=== PATIENT | female | born 1950 | race Caucasian/White ===

== ENCOUNTER 2020-06-06 08:36 | Outpatient (REF) | payer MEDICARE, SELFPAY ==
[2020-06-06 09:36] LABS: MANUAL DIFF FLAG NO
[2020-06-06 09:37] LABS: Basophils Percent Auto 0.6 % (0-2); Eosinophils Absolute Auto 0.1 X10*3/uL (0.0-0.4); Eosinophils Percent Auto 1.1 % (0-4); Hematocrit 37.2 % (37-47); Hemoglobin 12.7 g/dl (12.0-16.0); Imm Gran Abs Auto 0.02 X10*3/uL (0.00-0.03); Imm Gran Pct Auto 0.4 % (0.0-0.4); Lymphocytes Absolute Auto 2.4 X10*3/uL (1.2-4.9); Lymphocytes Percent Auto 44.4 % (20-40); Mean Corpuscular HGB Conc 34.1 g/dl (31.0-35.0); Mean Corpuscular Volume 96.6 fL (80-98); Mean Platelet Volume 9.6 fL (9.4-12.3); Monocytes Absolute Auto 0.5 X10*3/uL (0.1-1.2); Monocytes Percent Auto 9.9 % (2-11); Neutrophils Absolute Auto 2.4 X10*3/uL (2.0-8.3); Neutrophils Percent Auto 43.6 % (45-73); Platelet Count 187 X10*3/uL (160-400); Red Blood Count 3.85 X10*6/uL (4.20-5.50); Red Cell Distribution Width 11.6 % (11.0-16.0); White Blood Count 5.4 X10*3/uL (4.8-10.8)
[2020-06-06 09:49] LABS: Estimated Average Glucose 105 mg/dL; Hemoglobin A1c % 5.3 %
[2020-06-06 10:23] LABS: Alanine Aminotransferase 27 U/L (0-31); Albumin Level 4.6 g/dL (3.5-5.0); Alkaline Phosphatase 75 U/L (39-117); Anion Gap 14 (12-20); Aspartate Amino Transferase 26 U/L (5-31); Bilirubin Total 0.7 mg/dL (0.0-1.0); Blood Urea Nitrogen 18 mg/dL (9-16); Calcium 9.6 mg/dL (8.4-10.2); Carbon Dioxide 29 mmol/L (22-29); Chloride 97 mmol/L (96-108); Cholesterol 182 mg/dL; Estimated Glomerular Filt Rate > 60; Glucose Fasting 90 mg/dL (60-99); HDL Cholesterol 58 mg/dL; LDL Cholesterol Calculated 101 mg/dl; Potassium 4.4 mmol/l (3.3-5.1); Reflex LDLD? No; Sodium 136 mmol/L (135-145); Total Protein 7.3 g/dL (6.5-8.0); Triglycerides 118 mg/dL
== END 2020-06-06 08:37 | disposition home or self-care (01) ==
LOC: HO.LAB 08:36
PROVIDERS: PCP Internal Medicine; Visit Provider Internal Medicine
DX: Z00.00 Encounter for general adult medical examination without abnormal findings (principal); R73.03 Prediabetes; R79.89 Other specified abnormal findings of blood chemistry; E78.00 Pure hypercholesterolemia, unspecified; I10 Essential (primary) hypertension; E83.119 Hemochromatosis, unspecified
CPT/HCPCS: 36415; 80053; 80061; 83036; 85025

== ENCOUNTER 2020-06-12 09:03 | Outpatient (REF) | payer MEDICARE, SELFPAY ==
[2020-06-12 09:30] LABS: Glucose Urine UA NEG (NEG); Leukocyte Esterase Urine NEG (NEG); Nitrite Urine NEG (NEG); Specific Gravity - Urine 1.015 (1.005-1.025); Urine Blood NEG (NEG); Urine Ketones NEG (NEG); Urine Protein NEG (NEG-TRACE)
[2020-06-12 09:31] LABS: Appearance Urine CLEAR; Color Urine YELLOW
[2020-06-12 10:01] LABS: Creatinine Urine 60.02 mg/dL; Microalbumin Urine < 5.0 mg/L
== END 2020-06-12 09:04 | disposition home or self-care (01) ==
LOC: HO.LNP 09:03
PROVIDERS: Visit Provider Internal Medicine
DX: R73.09 Other abnormal glucose (principal); E83.119 Hemochromatosis, unspecified; I10 Essential (primary) hypertension
CPT/HCPCS: 81003; 82043

== ENCOUNTER 2020-11-07 09:50 | Outpatient (REF) | payer MEDICARE, SELFPAY ==
[2020-11-07 11:01] LABS: Glucose Urine UA NEG (NEG); Leukocyte Esterase Urine NEG (NEG); Nitrite Urine NEG (NEG); Urine Blood NEG (NEG); Urine Ketones NEG (NEG); Urine Protein NEG (NEG-TRACE)
[2020-11-07 11:05] LABS: Appearance Urine CLEAR; Color Urine YELLOW
[2020-11-07 11:16] LABS: RBC Urine 0-2 /HPF (0); Squamous Epithelial Cell Urine 2+ /LPF; WBC Urine 0-2 /HPF (0-4)
== END 2020-11-07 09:51 | disposition home or self-care (01) ==
LOC: HO.LNP 09:50
PROVIDERS: Visit Provider Internal Medicine
DX: N30.90 Cystitis, unspecified without hematuria (principal)
CPT/HCPCS: 81001; 87086

== ENCOUNTER 2020-11-30 15:25 | Outpatient (REF) | payer MEDICARE, SELFPAY ==
[2020-11-30 15:34] LABS: Glucose Urine UA NEG (NEG); Leukocyte Esterase Urine NEG (NEG); Nitrite Urine NEG (NEG); Urine Blood NEG (NEG); Urine Ketones NEG (NEG); Urine Protein NEG (NEG-TRACE)
[2020-11-30 15:35] LABS: Appearance Urine CLEAR; Color Urine STRAW
[2020-11-30 15:45] LABS: Bacteria Urine 1+ /LPF; RBC Urine 0-2 /HPF (0); Squamous Epithelial Cell Urine 2+ /LPF; Urine Talc Crystals 1+ /LPF
== END 2020-11-30 15:26 | disposition home or self-care (01) ==
LOC: HO.LNP 15:25
PROVIDERS: Visit Provider Internal Medicine
DX: R31.9 Hematuria, unspecified (principal)
CPT/HCPCS: 81001

== ENCOUNTER 2020-12-08 10:17 | Outpatient (REF) | payer MEDICARE, SELFPAY ==
[2020-12-08 10:25] LABS: Glucose Urine UA NEG (NEG); Leukocyte Esterase Urine TRACE (NEG); Nitrite Urine POS (NEG); Urine Blood NEG (NEG); Urine Ketones NEG (NEG); Urine Protein NEG (NEG-TRACE)
[2020-12-08 10:42] LABS: Appearance Urine HAZY; Color Urine YELLOW
[2020-12-08 10:43] LABS: Bacteria Urine 4+ /LPF; RBC Urine 0 /HPF (0); Squamous Epithelial Cell Urine 1+ /LPF
[2020-12-08 10:53] LABS: Alanine Aminotransferase 33 U/L (0-31); Albumin Level 4.6 g/dL (3.5-5.0); Alkaline Phosphatase 73 U/L (39-117); Aspartate Amino Transferase 38 U/L (5-31); Bilirubin Direct 0.3 mg/dL (0.0-0.5); Bilirubin Total 0.8 mg/dL (0.0-1.0); Cholesterol 182 mg/dL; HDL Cholesterol 56 mg/dL; LDL Cholesterol Calculated 101 mg/dl; Total Protein 7.4 g/dL (6.5-8.0); Triglycerides 125 mg/dL
[2020-12-08 11:13] LABS: Ferritin 534 ng/mL (10-250)
== END 2020-12-08 10:18 | disposition home or self-care (01) ==
LOC: HO.LNP 10:17
PROVIDERS: Visit Provider Internal Medicine
DX: R79.89 Other specified abnormal findings of blood chemistry (principal); E78.00 Pure hypercholesterolemia, unspecified; E83.119 Hemochromatosis, unspecified; R31.9 Hematuria, unspecified
CPT/HCPCS: 80061; 80076; 81001; 82728

== ENCOUNTER 2021-06-19 10:11 | Outpatient (REF) | payer MEDICARE, SELFPAY ==
[2021-06-19 10:14] LABS: MANUAL DIFF FLAG NO
[2021-06-19 10:32] LABS: Appearance Urine CLEAR; Color Urine STRAW; Glucose Urine UA NEG (NEG); Leukocyte Esterase Urine 1+ (NEG); Nitrite Urine NEG (NEG); Urine Blood NEG (NEG); Urine Ketones 5 MG/DL (NEG); Urine Protein NEG (NEG-TRACE)
[2021-06-19 11:02] LABS: Basophils Percent Auto 0.8 % (0-2); Eosinophils Absolute Auto 0.1 X10*3/uL (0.0-0.4); Eosinophils Percent Auto 1.9 % (0-4); Hematocrit 40.3 % (37.0-47.0); Hemoglobin 13.4 g/dl (12.0-16.0); Imm Gran Abs Auto 0.02 X10*3/uL (0.00-0.03); Imm Gran Pct Auto 0.4 % (0.0-0.4); Lymphocytes Percent Auto 40.6 % (20-40); Mean Corpuscular HGB Conc 33.3 g/dl (31.0-35.0); Mean Corpuscular Hemoglobin 32.9 pg (27.0-33.0); Mean Platelet Volume 9.9 fL (9.4-12.3); Monocytes Absolute Auto 0.5 X10*3/uL (0.1-1.2); Monocytes Percent Auto 9.6 % (2-11); Neutrophils Absolute Auto 2.2 x10*3/uL (2.0-8.3); Neutrophils Percent Auto 46.7 % (45-73); Platelet Count 202 X10*3/uL (160-400); Red Blood Count 4.07 X10*6/uL (4.20-5.50); Red Cell Distribution Width 11.9 % (11.0-16.0); White Blood Count 4.8 X10*3/uL (4.8-10.8)
[2021-06-19 11:32] LABS: Bacteria Urine 2+ /LPF; RBC Urine 0 /HPF (0); Squamous Epithelial Cell Urine TRACE /LPF; WBC Urine 0-2 /HPF (0-4)
[2021-06-19 11:43] LABS: Creatinine Urine 31.55 mg/dL; Microalbum/Creatinine Ratio Ur 28.5 ug/mg cr
[2021-06-19 11:48] LABS: Alanine Aminotransferase 25 U/L (0-31); Albumin Level 4.6 g/dL (3.5-5.0); Alkaline Phosphatase 66 U/L (39-117); Anion Gap 18 (12-20); Aspartate Amino Transferase 29 U/L (5-31); Bilirubin Total 0.6 mg/dL (0.0-1.0); Blood Urea Nitrogen 25 mg/dL (9-16); Calcium 10.4 mg/dL (8.4-10.2); Carbon Dioxide 27 mmol/L (22-29); Chloride 99 mmol/L (96-108); Cholesterol 221 mg/dL; Estimated Glomerular Filt Rate 60; Glucose Fasting 98 mg/dL (60-99); HDL Cholesterol 57 mg/dL; LDL Cholesterol Calculated 132 mg/dl; Potassium 4.8 mmol/L (3.3-5.1); Sodium 139 mmol/L (135-145); Total Protein 7.9 g/dL (6.5-8.0); Triglycerides 160 mg/dL
[2021-06-19 11:55] LABS: Estimated Average Glucose 111 mg/dL; Hemoglobin A1C 152.0948 umol/L; Hemoglobin A1c % 5.5 %
== END 2021-06-19 10:12 | disposition home or self-care (01) ==
LOC: HO.LNP 10:11
PROVIDERS: PCP Internal Medicine; Visit Provider Internal Medicine
DX: Z00.00 Encounter for general adult medical examination without abnormal findings (principal); I10 Essential (primary) hypertension; R73.09 Other abnormal glucose; R79.89 Other specified abnormal findings of blood chemistry; E78.00 Pure hypercholesterolemia, unspecified; E83.119 Hemochromatosis, unspecified
CPT/HCPCS: 80053; 80061; 81001; 82043; 83036; 85025

== ENCOUNTER 2021-06-25 15:26 | Outpatient (REF) | payer MEDICARE, SELFPAY ==
[2021-06-25 15:49] LABS: Calcium 9.7 mg/dL (8.4-10.2); Iron 120 mcg/dL (30-160); Percent Iron Saturation 42 % (15-50); Total Iron Binding Capacity 289 mcg/dL (228-428); Unsaturated Iron Binding 169 ug/dL
[2021-06-25 16:10] LABS: Ferritin 612 ng/mL (10-250)
== END 2021-06-25 15:27 | disposition home or self-care (01) ==
LOC: HO.LNP 15:26
PROVIDERS: Visit Provider Internal Medicine
DX: E83.119 Hemochromatosis, unspecified (principal); E83.52 Hypercalcemia
CPT/HCPCS: 82310; 82728; 83540

== ENCOUNTER 2021-10-04 08:58 | Outpatient (REF) | payer MEDICARE, SELFPAY ==
--- NOTE | ~2021-10-04 | US_ITS ---
EXAMINATION: US ABDOMEN COMPLETE CLINICAL INFORMATION: Abnormal LFTs. COMPARISON: None TECHNIQUE: Real-time imaging of the abdominal viscera. FINDINGS: PANCREAS: Normal. ABDOMINAL AORTA: The proximal, mid, and distal segments are normal in caliber. INFERIOR VENA CAVA: Visualized portions are normal. LIVER: The liver is normal in size. The liver contour is normal. There is increased liver echogenicity. No focal hepatic lesion. There is no intrahepatic biliary duct dilatation seen. GALLBLADDER: Normal. The gallbladder is physiologically distended without evidence of stones, sludge, polyps, wall thickening or pericholecystic fluid. COMMON BILE DUCT: Normal in caliber measuring 0.3 cm in diameter. RIGHT KIDNEY: There is an irregular shaped cyst in the lower pole measuring 3.0 x 1.4 x 2.3 cm. No hydronephrosis or renal calculi. The kidney measures 11.4 cm in maximum dimension. LEFT KIDNEY: There are 3 anechoic cysts in midpole. Simple measures 0.9 x 0.7 x 1.0 cm. Thick-walled midpole cyst measures 1.2 x 1.0 x 0.8 cm. A third simple cyst in midpole measures 1.2 x 1.0 x 1.0 cm. No hydronephrosis or renal calculi. The kidney measures 11.9 cm in maximum dimension. SPLEEN: Normal. The spleen measures 9.8 cm in maximum dimension. FREE FLUID: None. US/US abdomen complete IMPRESSION: There are bilateral renal cysts with a thick-walled renal cyst in midpole left kidney.
[2021-10-04 09:46] LABS: MANUAL DIFF FLAG NO
[2021-10-04 10:52] LABS: Basophils Percent Auto 0.8 % (0-2); Eosinophils Absolute Auto 0.1 X10*3/uL (0.0-0.4); Eosinophils Percent Auto 2.1 % (0-4); Hematocrit 38.1 % (37.0-47.0); Hemoglobin 12.6 g/dl (12.0-16.0); Imm Gran Abs Auto 0.01 X10*3/uL (0.00-0.03); Imm Gran Pct Auto 0.2 % (0.0-0.4); Lymphocytes Absolute Auto 2.3 X10*3/uL (1.2-4.9); Lymphocytes Percent Auto 47.6 % (20-40); Mean Corpuscular HGB Conc 33.1 g/dl (31.0-35.0); Mean Corpuscular Hemoglobin 32.8 pg (27.0-33.0); Mean Corpuscular Volume 99.2 fL (80.0-98.0); Mean Platelet Volume 9.6 fL (9.4-12.3); Monocytes Absolute Auto 0.5 X10*3/uL (0.1-1.2); Monocytes Percent Auto 9.9 % (2-11); Neutrophils Absolute Auto 1.9 x10*3/uL (2.0-8.3); Neutrophils Percent Auto 39.4 % (45-73); Platelet Count 185 X10*3/uL (160-400); Red Blood Count 3.84 X10*6/uL (4.20-5.50); Red Cell Distribution Width 11.8 % (11.0-16.0); White Blood Count 4.8 X10*3/uL (4.8-10.8)
[2021-10-04 11:37] LABS: Alanine Aminotransferase 23 U/L (0-31); Albumin Level 4.7 g/dL (3.5-5.0); Alkaline Phosphatase 72 U/L (39-117); Aspartate Amino Transferase 24 U/L (5-31); Bilirubin Direct 0.3 mg/dL (0.0-0.5); Bilirubin Total 0.8 mg/dL (0.0-1.0); Total Protein 7.8 g/dL (6.5-8.0)
[2021-10-05 04:05] LABS: Hepatitis A Antibody IgG Nonreactive (Nonreactive); ~Hepatitis A Antibody IgG 0.45 S/CO (0.00-0.99)
[2021-10-05 04:29] LABS: HBS Num1 1.08 mIU/mL (0-7.99); Hepatitis B Core Antibody Nonreactive (Nonreactive); Hepatitis B Surface Antigen Negative (Negative); ~HepC Num1 0.11 S/CO (0.00-0.79); ~Hepatitis B Surface Antibody NONREACTIVE (Nonreactive); ~Hepatitis C Antibody Nonreactive (Nonreactive)
[2021-10-06 16:31] LABS: Anti Nuclear Antibody Screen NEGATIVE (NEGATIVE)
[2021-10-09 14:31] LABS: Smooth Muscle Antibody <20 U (<20)
[2021-10-09 15:06] LABS: Mitochondrial Antibodies NEGATIVE (NEGATIVE)
== END 2021-10-04 08:59 | disposition home or self-care (01) ==
LOC: HO.US 08:58
PROVIDERS: PCP Internal Medicine; Visit Provider Internal Medicine Gastroenterology
DX: R94.5 Abnormal results of liver function studies (principal)
CPT/HCPCS: 36415; 76700; 80076; 85025; 86015; 86038; 86039; 86255; 86256; 86704; 86706; 86708; 86803; 87340

== ENCOUNTER 2021-12-13 10:35 | Outpatient (REF) | payer MEDICARE, SELFPAY ==
[2021-12-13 11:43] LABS: Estimated Average Glucose 108 mg/dL; Hemoglobin A1c % 5.4 %
[2021-12-13 11:54] LABS: Alanine Aminotransferase 29 U/L (0-31); Albumin Level 4.4 g/dL (3.5-5.0); Alkaline Phosphatase 67 U/L (39-117); Aspartate Amino Transferase 40 U/L (5-31); Bilirubin Direct 0.3 mg/dL (0.0-0.5); Bilirubin Total 0.8 mg/dL (0.0-1.0); Cholesterol 186 mg/dL; Glucose Fasting 102 mg/dL (60-99); HDL Cholesterol 49 mg/dL; LDL Cholesterol Calculated 111 mg/dl; Total Protein 7.2 g/dL (6.5-8.0); Triglycerides 131 mg/dL
[2021-12-13 13:54] LABS: Reflex LDLD? No
== END 2021-12-13 10:36 | disposition home or self-care (01) ==
LOC: HO.LNP 10:35
PROVIDERS: Visit Provider Internal Medicine
DX: R73.03 Prediabetes (principal); E78.00 Pure hypercholesterolemia, unspecified
CPT/HCPCS: 80061; 80076; 82947; 83036

== ENCOUNTER 2022-06-20 10:52 | Outpatient (REF) | payer MEDICARE, SELFPAY ==
[2022-06-20 11:11] LABS: MANUAL DIFF FLAG NO
[2022-06-20 11:48] LABS: Basophils Percent Auto 0.7 % (0-2); Eosinophils Absolute Auto 0.1 X10*3/uL (0.0-0.4); Eosinophils Percent Auto 1.6 % (0-4); Hematocrit 39.1 % (37.0-47.0); Imm Gran Abs Auto 0.02 X10*3/uL (0.00-0.03); Imm Gran Pct Auto 0.4 % (0.0-0.4); Lymphocytes Absolute Auto 2.4 X10*3/uL (1.2-4.9); Lymphocytes Percent Auto 43.1 % (20-40); Mean Corpuscular HGB Conc 33.2 g/dl (31.0-35.0); Mean Corpuscular Volume 99.2 fL (80.0-98.0); Mean Platelet Volume 9.8 fL (9.4-12.3); Monocytes Absolute Auto 0.5 X10*3/uL (0.1-1.2); Monocytes Percent Auto 9.2 % (2-11); Neutrophils Absolute Auto 2.5 x10*3/uL (2.0-8.3); Platelet Count 238 X10*3/uL (160-400); Red Blood Count 3.94 X10*6/uL (4.20-5.50); Red Cell Distribution Width 11.9 % (11.0-16.0); White Blood Count 5.6 X10*3/uL (4.8-10.8)
[2022-06-20 11:51] LABS: Appearance Urine Clear; Color Urine Yellow; Glucose Urine UA Negative (Negative); Leukocyte Esterase Urine Trace (Negative); Nitrite Urine Positive (Negative); PH 5.5 (5.0-9.0); UMIC TRIGGER UACC YES; Urine Blood Negative (Negative); Urine Ketones Negative (Negative); Urine Protein Negative (Neg-Trace)
[2022-06-20 11:57] LABS: Bacteria Urine 4+ (None Seen); Hyaline Casts Urine 0-2 /LPF (0-2); RBC Urine 0-2 /HPF (0-2); Squamous Epithelial Cell Urine 0-2 /HPF (0-2); UACC Culture Trigger YES
[2022-06-20 12:01] LABS: Estimated Average Glucose 108 mg/dL; Hemoglobin A1c % 5.4 %
[2022-06-20 12:02] LABS: Alanine Aminotransferase 25 U/L (0-31); Albumin Level 4.5 g/dL (3.5-5.0); Alkaline Phosphatase 64 U/L (39-117); Anion Gap 13 (12-20); Aspartate Amino Transferase 27 U/L (5-31); Bilirubin Total 0.7 mg/dL (0.0-1.0); Blood Urea Nitrogen 24 mg/dL (9-16); Calcium 9.9 mg/dL (8.4-10.2); Carbon Dioxide 30 mmol/L (22-29); Chloride 99 mmol/L (96-108); Cholesterol 204 mg/dL; Estimated Glomerular Filt Rate 59; Glucose Fasting 107 mg/dL (60-99); HDL Cholesterol 45 mg/dL; LDL Cholesterol Calculated 127 mg/dl; Potassium 4.3 mmol/L (3.3-5.1); Sodium 138 mmol/L (135-145); Total Protein 7.2 g/dL (6.5-8.0); Triglycerides 160 mg/dL
[2022-06-20 12:38] LABS: Creatinine Urine 51.97 mg/dL; Microalbum/Creatinine Ratio Ur 19.2 ug/mg cr
== END 2022-06-20 10:53 | disposition home or self-care (01) ==
LOC: HO.LNP 10:52
PROVIDERS: Visit Provider Internal Medicine
DX: Z00.00 Encounter for general adult medical examination without abnormal findings (principal); I10 Essential (primary) hypertension; R73.03 Prediabetes; R79.89 Other specified abnormal findings of blood chemistry; E78.00 Pure hypercholesterolemia, unspecified; E83.119 Hemochromatosis, unspecified
CPT/HCPCS: 80053; 80061; 81001; 82043; 83036; 85025; 87086; 87088; 87186

== ENCOUNTER 2022-12-24 10:56 | Outpatient (REF) | payer MEDICARE, SELFPAY ==
[2022-12-24 11:13] LABS: Estimated Average Glucose 108 mg/dL; Hemoglobin A1c % 5.4 %
[2022-12-24 11:14] LABS: Alanine Aminotransferase 27 U/L (0-31); Aspartate Amino Transferase 24 U/L (5-31); Bilirubin Direct 0.2 mg/dL (0.0-0.5); Bilirubin Total 0.6 mg/dL (0.0-1.0); Glucose Fasting 98 mg/dL (60-99); Total Protein 7.2 g/dL (6.5-8.0)
[2022-12-24 11:15] LABS: Albumin Level 4.2 g/dL (3.5-5.0); Alkaline Phosphatase 59 U/L (39-117); Cholesterol 181 mg/dL; HDL Cholesterol 45 mg/dL; LDL Cholesterol Calculated 94 mg/dl; Triglycerides 211 mg/dL
[2022-12-24 11:28] LABS: Reflex LDLD? No
== END 2022-12-24 10:57 | disposition home or self-care (01) ==
LOC: HO.LNP 10:56
PROVIDERS: Visit Provider Internal Medicine
DX: E78.00 Pure hypercholesterolemia, unspecified (principal); R73.09 Other abnormal glucose
CPT/HCPCS: 80061; 80076; 82947; 83036

== ENCOUNTER 2023-06-24 11:04 | Outpatient (REF) | payer MEDICARE, SELFPAY ==
[2023-06-24 11:08] LABS: MANUAL DIFF FLAG NO
[2023-06-24 11:37] LABS: Basophils Absolute Auto 0.1 X10*3/uL (0.0-0.2); Basophils Percent Auto 1.1 % (0-2); Eosinophils Absolute Auto 0.1 X10*3/uL (0.0-0.4); Eosinophils Percent Auto 2.3 % (0-4); Imm Gran Abs Auto 0.02 X10*3/uL (0.00-0.03); Imm Gran Pct Auto 0.4 % (0.0-0.4); Lymphocytes Absolute Auto 2.6 X10*3/uL (1.2-4.9); Lymphocytes Percent Auto 45.7 % (20-40); Mean Corpuscular HGB Conc 33.3 g/dl (31.0-35.0); Mean Platelet Volume 9.7 fL (9.4-12.3); Monocytes Absolute Auto 0.6 X10*3/uL (0.1-1.2); Monocytes Percent Auto 10.4 % (2-11); Neutrophils Absolute Auto 2.3 x10*3/uL (2.0-8.3); Neutrophils Percent Auto 40.1 % (45-73); Platelet Count 205 X10*3/uL (160-400); Red Blood Count 3.94 X10*6/uL (4.20-5.50); White Blood Count 5.7 X10*3/uL (4.8-10.8)
[2023-06-24 11:43] LABS: Appearance Urine Clear; Color Urine Yellow; Glucose Urine UA Negative (Negative); Leukocyte Esterase Urine Negative (Negative); Nitrite Urine Negative (Negative); Urine Blood Negative (Negative); Urine Ketones Negative (Negative); Urine Protein Negative (Neg-Trace)
[2023-06-24 11:48] LABS: Estimated Average Glucose 108 mg/dL; Hemoglobin A1c % 5.4 % (<6.0)
[2023-06-24 11:54] LABS: Alanine Aminotransferase 31 U/L (0-31); Albumin Level 4.4 g/dL (3.5-5.0); Alkaline Phosphatase 65 U/L (39-117); Anion Gap 13 (12-20); Aspartate Amino Transferase 29 U/L (5-31); Bilirubin Direct 0.2 mg/dL (0.0-0.5); Bilirubin Total 0.7 mg/dL (0.0-1.0); Blood Urea Nitrogen 23 mg/dL (9-16); Calcium 10.1 mg/dL (8.4-10.2); Carbon Dioxide 28 mmol/L (22-29); Chloride 101 mmol/L (96-108); Cholesterol 198 mg/dL (<200); Estimated Glomerular Filt Rate > 60; Glucose Fasting 104 mg/dL (60-99); HDL Cholesterol 52 mg/dL (>40); LDL Cholesterol Calculated 101 mg/dL (<100); Sodium 138 mmol/L (135-145); Total Protein 7.6 g/dL (6.5-8.0); Triglycerides 228 mg/dL (<150)
[2023-06-24 12:05] LABS: Bacteria Urine None Seen (None Seen); Hyaline Casts Urine 0-2 /LPF (0-2); RBC Urine 0-2 /HPF (0-2); Squamous Epithelial Cell Urine 0-2 /HPF (0-2); WBC Urine 0-5 /HPF (0-5)
[2023-06-24 12:07] LABS: Microalbumin Urine < 5.0 mg/L
== END 2023-06-24 11:05 | disposition home or self-care (01) ==
LOC: HO.LNP 11:04
PROVIDERS: Visit Provider Internal Medicine
DX: Z00.00 Encounter for general adult medical examination without abnormal findings (principal); I10 Essential (primary) hypertension; R73.03 Prediabetes; R79.89 Other specified abnormal findings of blood chemistry; E83.119 Hemochromatosis, unspecified
CPT/HCPCS: 80053; 80061; 80076; 81001; 82043; 82248; 82570; 83036; 85025

== ENCOUNTER 2023-10-07 15:40 | Outpatient (REF) | payer MEDICARE, SELFPAY | END 2023-10-07 15:41 | disposition home or self-care (01) | LOC: HO.LNP 15:40 | PROVIDERS: Visit Provider Internal Medicine | DX: M1A.9XX1 Chronic gout, unspecified, with tophus (tophi) (principal) | CPT/HCPCS: 84550 ==

== ENCOUNTER 2023-10-08 10:34 | Outpatient (REF) | payer MEDICARE, SELFPAY ==
--- NOTE | ~2023-10-08 | XR_ITS ---
EXAMINATION: Bilateral hand series bilateral foot series CLINICAL INFORMATION: Chronic gout with tophi. COMPARISON: None TECHNIQUE: 3 views of each foot. 3 views of each hand FINDINGS: Right foot: First metatarsophalangeal joint complex: Severe osteoarthritis manifested by severe joint space narrowing prominent marginal osteophytes. No erosions or soft tissue masses. Small plantar calcaneal spurs. Remaining bones joints and soft tissues unremarkable. Left foot: First metatarsophalangeal joint complex: Advanced osteoarthritis with severe joint space narrowing marginal osteophytes. No erosions or soft tissue masses. Calcaneal spurs. Right hand: First carpometacarpal joint and advanced osteoarthritis manifested by marked joint space narrowing subchondral cystic change and marginal osteophytes. No erosions or soft tissue masses. Varying degrees of mild and mild to moderate osteoarthritis with involvement of the IP joint of the thumb, second fourth and fifth DIP joints second third PIP joints, and second metacarpophalangeal joint manifested by marginal osteophytes with without joint space narrowing. No marginal erosions or soft tissue masses. No significant malalignment. Left hand: First carpometacarpal joint there is moderate osteoarthritis manifested by joint space narrowing possible loose body and marginal osteophytes. There is mild to moderate osteoarthritis involving the second third and fifth DIP joints manifested by marginal osteophytes and/or nonuniform joint space narrowing. Additional mild osteoarthritis of the second metacarpal phalangeal joint manifested by marginal osteophytes. No erosions. No soft tissue masses. XR/XR hand wrist LT IMPRESSION: No radiographic findings specific for gout. 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 LEFT FOOT: Advanced osteoarthritis of the 1st metatarsophalangeal joint complex. RIGHT HAND: Osteoarthritis with advanced osteoarthritis of the 1st carpometacarpal joint complex. LEFT HAND: Osteoarthritis with degenerative changes most prominent in the first carpometacarpal joint being moderate.
--- NOTE | ~2023-10-08 | XR_ITS ---
EXAMINATION: Bilateral hand series bilateral foot series CLINICAL INFORMATION: Chronic gout with tophi. COMPARISON: None TECHNIQUE: 3 views of each foot. 3 views of each hand FINDINGS: Right foot: First metatarsophalangeal joint complex: Severe osteoarthritis manifested by severe joint space narrowing prominent marginal osteophytes. No erosions or soft tissue masses. Small plantar calcaneal spurs. Remaining bones joints and soft tissues unremarkable. Left foot: First metatarsophalangeal joint complex: Advanced osteoarthritis with severe joint space narrowing marginal osteophytes. No erosions or soft tissue masses. Calcaneal spurs. Right hand: First carpometacarpal joint and advanced osteoarthritis manifested by marked joint space narrowing subchondral cystic change and marginal osteophytes. No erosions or soft tissue masses. Varying degrees of mild and mild to moderate osteoarthritis with involvement of the IP joint of the thumb, second fourth and fifth DIP joints second third PIP joints, and second metacarpophalangeal joint manifested by marginal osteophytes with without joint space narrowing. No marginal erosions or soft tissue masses. No significant malalignment. Left hand: First carpometacarpal joint there is moderate osteoarthritis manifested by joint space narrowing possible loose body and marginal osteophytes. There is mild to moderate osteoarthritis involving the second third and fifth DIP joints manifested by marginal osteophytes and/or nonuniform joint space narrowing. Additional mild osteoarthritis of the second metacarpal phalangeal joint manifested by marginal osteophytes. No erosions. No soft tissue masses. XR/XR hand wrist RT IMPRESSION: No radiographic findings specific for gout. 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 LEFT FOOT: Advanced osteoarthritis of the 1st metatarsophalangeal joint complex. RIGHT HAND: Osteoarthritis with advanced osteoarthritis of the 1st carpometacarpal joint complex. LEFT HAND: Osteoarthritis with degenerative changes most prominent in the first carpometacarpal joint being moderate.
--- NOTE | ~2023-10-08 | XR_ITS ---
EXAMINATION: Bilateral hand series bilateral foot series CLINICAL INFORMATION: Chronic gout with tophi. COMPARISON: None TECHNIQUE: 3 views of each foot. 3 views of each hand FINDINGS: Right foot: First metatarsophalangeal joint complex: Severe osteoarthritis manifested by severe joint space narrowing prominent marginal osteophytes. No erosions or soft tissue masses. Small plantar calcaneal spurs. Remaining bones joints and soft tissues unremarkable. Left foot: First metatarsophalangeal joint complex: Advanced osteoarthritis with severe joint space narrowing marginal osteophytes. No erosions or soft tissue masses. Calcaneal spurs. Right hand: First carpometacarpal joint and advanced osteoarthritis manifested by marked joint space narrowing subchondral cystic change and marginal osteophytes. No erosions or soft tissue masses. Varying degrees of mild and mild to moderate osteoarthritis with involvement of the IP joint of the thumb, second fourth and fifth DIP joints second third PIP joints, and second metacarpophalangeal joint manifested by marginal osteophytes with without joint space narrowing. No marginal erosions or soft tissue masses. No significant malalignment. Left hand: First carpometacarpal joint there is moderate osteoarthritis manifested by joint space narrowing possible loose body and marginal osteophytes. There is mild to moderate osteoarthritis involving the second third and fifth DIP joints manifested by marginal osteophytes and/or nonuniform joint space narrowing. Additional mild osteoarthritis of the second metacarpal phalangeal joint manifested by marginal osteophytes. No erosions. No soft tissue masses. XR/XR foot LT min 3V IMPRESSION: No radiographic findings specific for gout. 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 LEFT FOOT: Advanced osteoarthritis of the 1st metatarsophalangeal joint complex. RIGHT HAND: Osteoarthritis with advanced osteoarthritis of the 1st carpometacarpal joint complex. LEFT HAND: Osteoarthritis with degenerative changes most prominent in the first carpometacarpal joint being moderate.
[2023-10-08 12:47] LABS: MANUAL DIFF FLAG NO
[2023-10-08 13:42] LABS: Basophils Absolute Auto 0.1 X10*3/uL (0.0-0.2); Basophils Percent Auto 1.1 % (0-2); Eosinophils Absolute Auto 0.2 X10*3/uL (0.0-0.4); Hematocrit 35.4 % (37.0-47.0); Hemoglobin 11.9 g/dl (12.0-16.0); Imm Gran Abs Auto 0.16 X10*3/uL (0.00-0.03); Lymphocytes Absolute Auto 3.4 X10*3/uL (1.2-4.9); Lymphocytes Percent Auto 42.7 % (20-40); Mean Corpuscular HGB Conc 33.6 g/dl (31.0-35.0); Mean Corpuscular Hemoglobin 33.1 pg (27.0-33.0); Mean Corpuscular Volume 98.6 fL (80.0-98.0); Mean Platelet Volume 9.5 fL (9.4-12.3); Monocytes Absolute Auto 0.8 X10*3/uL (0.1-1.2); Monocytes Percent Auto 9.8 % (2-11); Neutrophils Absolute Auto 3.3 x10*3/uL (2.0-8.3); Neutrophils Percent Auto 42.4 % (45-73); Platelet Count 267 X10*3/uL (160-400); Red Blood Count 3.59 X10*6/uL (4.20-5.50); Red Cell Distribution Width 11.7 % (11.0-16.0); White Blood Count 7.8 X10*3/uL (4.8-10.8)
[2023-10-08 14:19] LABS: Alanine Aminotransferase 45 U/L (0-31); Albumin Level 4.2 g/dL (3.5-5.0); Alkaline Phosphatase 64 U/L (39-117); Anion Gap 18 (12-20); Aspartate Amino Transferase 39 U/L (5-31); Bilirubin Total 0.4 mg/dL (0.0-1.0); Blood Urea Nitrogen 50 mg/dL (9-16); C Reactive Protein 0.73 mg/dL (< or = 0.50); Calcium 9.9 mg/dL (8.4-10.2); Carbon Dioxide 20 mmol/L (22-29); Chloride 107 mmol/L (96-108); Estimated Glomerular Filt Rate 35; Glucose Random 80 mg/dL (60-115); Potassium 3.9 mmol/L (3.3-5.1); Sodium 141 mmol/L (135-145); Total Protein 7.5 g/dL (6.5-8.0)
[2023-10-08 14:24] LABS: Erythrocyte Sedimentation Rate 46 MM/HR (0-20)
== END 2023-10-08 10:35 | disposition home or self-care (01) ==
LOC: HO.XRAY 10:34
PROVIDERS: PCP Internal Medicine; Visit Provider Student in an Organized Health Care Education/Training Program
DX: M1A.9XX1 Chronic gout, unspecified, with tophus (tophi) (principal)
CPT/HCPCS: 36415; 73110; 73130; 73630; 80053; 85025; 85652; 86140; 99202

== ENCOUNTER 2023-10-08 10:34 | Outpatient (AMB) | payer MEDICARE, SELFPAY ==
--- NOTE | 2023-10-08 10:59 | MHC.OFFVIS ---
Vital Signs 10/08/23 11:11 Height 5 ft 4 in Weight 139 lb 15.896 oz BMI 24.0 BP 112/68 Blood Pressure Location Rt brachial Position Sitting Pulse 74 Pulse Source Pulse Oximeter Pulse Oximetry (%) 97 Oxygen Delivery Method Room Air Intake Visit Reasons: bl finger swelling ? gout Intake Note: New pt presents today with complaints of finger swelling, referred by PCP Dr Huynh. This started approx 2 weeks ago on right hand now on left. She saw urgent care in [place] [address], she was given ABX then saw PCP who referred her here. She states she has tried gout medication before but does not remember the name. 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 Accompanied by: Self / Same As Patient Allergies nitrofurantoin [From Macrodantin] Adverse Reaction (Verified 10/08/23 10:50) Rash sulfamethoxazole [From Bactrim] Adverse Reaction (Verified 10/08/23 10:50) Rash trimethoprim [From Bactrim] Adverse Reaction (Verified 10/08/23 10:50) Rash Medication List - Last Reconciled 10/08/23 by Kofi Prince MD amlodipine 5 mg PO DAILY atorvastatin 10 mg PO DAILY estradiol 10 mcg vaginal 2XW nebivolol mg PO omeprazole 20 mg PO DAILY valsartan-hydrochlorothiazide 320-12.5 mg 1 tab PO DAILY HPI Comments Details: This is a 72-year-old female who presents for evaluation of gout. Patient stated that she started having gout attacks 10-12 years ago usually affecting her bit dose, she would have 1 or 2 attacks in a year. Usually treated with indomethacin which was helpful but caused some stomach upset. She states that 2 weeks ago she went to urgent care due to abrupt onset of right middle finger pain and swelling. A punctured it and some fluid came out, infection was suspected and she was prescribed antibiotics with some improvement. Two days ago she started to have similar left 5th DIP pain redness and swelling. Could not even touch the skin. She went to urgent Care, she was diagnosed with infection and prescribed antibiotics. She then followed with her PCP Dr. Huynh yesterday who diagnosed gout and prescribed ibuprofen. Stated that the pain has improved somewhat since yesterday. She also is having pain and swelling of her left big toe. Patient denies any history of kidney stones. She drinks 2 glasses of white wine almost nightly with dinner and a few more drinks on the weekends. 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 Brother Gout Father Gout Other Family history of heart disease Social History Alcohol intake: current Alcohol intake frequency: 0-2 drinks per day Alcohol type: wine Patient Tobacco Use Status: Former Tobacco user [place] [facility] [place]ity, Reports arthralgias and Reports joint swelling Skin/Breast Reports erythema Physical Exam Vital Signs: Last Vital Signs Pulse 74 10/08/23 11:11 BP 112/68 10/08/23 11:11 Pulse Ox 97 10/08/23 11:11 Oxygen Delivery Method Room Air 10/08/23 11:11 BMI result Body Mass Index 24.0 Const General: cooperative, healthy appearing and comfortable Nutritional Appearance: average body habitus Orientation/consciousness: patient oriented x3 Limitations: no limitations HEENT Head: Yes normocephalic and Yes atraumatic Mouth: moist mucous membranes Resp Effort & Inspection: normal respiratory effort and able to speak in complete sentences Auscultation: clear to auscultation bilaterally Cardio Rate: regular rate Rhythm: regular rhythm Neuro General: patient oriented x3 Extrem Other: Osteoarthritic changes of both hands Tophi with some erythema on right 3rd DIP minimally tender Left 5th finger DIP with tophi, significant erythema and exquisite tenderness to touch no tophi on elbows Normal range of motion of elbows and shoulders Right foot bunion with likely a tophus on top of it Left 1st MTP and big toe swelling erythema and tenderness Assessment & Plan Assessment & Plan (1) Tophaceous gout: Code(s): M1A.9XX1 - Chronic gout, unspecified, with tophus (tophi) Category: Medical Plan: This is a 72-year-old female who presents for evaluation of gout. Condition started 10-12 years ago usually affecting her MTPs, treated with indomethacin. Over the last few weeks she has been having gout flare-ups affecting her fingers. On exam she has left 5th DIP synovitis as well as left big toe synovitis. She has tophi on exam. She is acute polyarticular gout. Uric acid level 10.0 mg/dL. Ibuprofen has been minimally helpful. We discussed gout and its management strategies. Stop ibuprofen. Start prednisone taper to treat the acute flare. After flares treated start allopurinol 100 mg daily for 1 week then 200 mg daily. Start colchicine 0.6 mg daily for prophylaxis Ice affected joints when in a flare I provided patient with a printout of purine rich foods. Advised patient to stop alcohol consumption at least until this current flare resolves Check labs and x-rays of hands and feet today Labs before next visit in 6-8 weeks Plan I spent 46 minutes reviewing patient's chart, evaluating patient, ordering diagnostic workup, counseling patient and documenting in the chart Orders: Orders Complete Blood Count Auto Diff Today M1A.9XX1 - Chronic gout, unspecified, with tophus (tophi) Comprehensive Met. Panel Today M1A.9XX1 - Chronic gout, unspecified, with tophus (tophi) XR foot LT min 3V Today M1A.9XX1 - Chronic gout, unspecified, with tophus (tophi) XR hand wrist LT Today M1A.9XX1 - Chronic gout, unspecified, with tophus (tophi) Uric Acid 6 Weeks M1A.9XX1 - Chronic gout, unspecified, with tophus (tophi) C Reactive Protein Today M1A.9XX1 - Chronic gout, unspecified, with tophus (tophi) Erythrocyte Sedimentation Rate Today M1A.9XX1 - Chronic gout, unspecified, with tophus (tophi) XR foot RT min 3V Today M1A.9XX1 - Chronic gout, unspecified, with tophus (tophi) XR hand wrist RT Today M1A.9XX1 - Chronic gout, unspecified, with tophus (tophi) Comprehensive Met. Panel 6 Weeks M1A.9XX1 - Chronic gout, unspecified, with tophus (tophi) Medications: New prednisone Take 3 tabs daily for 3 days, 2 tabs daily for 3 days and 1 tab daily for 3 days then stop 18 tabs 1RF allopurinol Take 1 tab daily for 1 week then 2 tabs daily 90 tabs 0RF colchicine 0.6 mg PO DAILY 60 tabs 0RF Coding Level of Care Code New Pt Level 4 (12191) Diagnoses Tophaceous gout M1A.9XX1
[2023-10-08 11:11] VITALS: BP 112/68; PULSE 74; O2SAT 97; BMI 24.0
== END 2023-10-08 11:48 | disposition home or self-care (01) ==
PROVIDERS: PCP Internal Medicine; Visit Provider Student in an Organized Health Care Education/Training Program
DX: M1A.9XX1 Chronic gout, unspecified, with tophus (tophi) (principal)
CPT/HCPCS: 99204

== ENCOUNTER 2023-10-28 11:11 | Outpatient (REF) | payer MEDICARE, SELFPAY ==
[2023-10-28 12:41] LABS: Blood Urea Nitrogen 18 mg/dL (9-16); Estimated Glomerular Filt Rate 58
== END 2023-10-28 11:12 | disposition home or self-care (01) ==
LOC: HO.LNP 11:11
PROVIDERS: Visit Provider Internal Medicine
DX: R79.9 Abnormal finding of blood chemistry, unspecified (principal)
CPT/HCPCS: 82565; 84520

== ENCOUNTER 2023-11-13 10:45 | Outpatient (REF) | payer MEDICARE, SELFPAY ==
[2023-11-13 11:28] LABS: Blood Urea Nitrogen 19 mg/dL (9-16); Estimated Glomerular Filt Rate > 60; Uric Acid 5.8 mg/dL (2.4-5.7)
== END 2023-11-13 10:46 | disposition home or self-care (01) ==
LOC: HO.LNP 10:45
PROVIDERS: Visit Provider Internal Medicine
DX: M1A.9XX1 Chronic gout, unspecified, with tophus (tophi) (principal)
CPT/HCPCS: 82565; 84520; 84550

== ENCOUNTER 2023-11-24 09:57 | Outpatient (AMB) | payer MEDICARE, SELFPAY ==
--- NOTE | 2023-11-24 09:59 | MHC.OFFVIS ---
Vital Signs 11/24/23 10:03 Height 5 ft 4 in Weight 139 lb 1.787 oz BMI 23.9 BP 115/62 Blood Pressure Location Rt brachial Position Sitting Pulse 75 Pulse Source Pulse Oximeter Pulse Oximetry (%) 98 Oxygen Delivery Method Room Air Intake Visit Reasons: Gout/CM Intake Note: Patient presents for Gout. Allergies nitrofurantoin [From Macrodantin] Adverse Reaction (Verified 11/24/23 10:02) Rash sulfamethoxazole [From Bactrim] Adverse Reaction (Verified 11/24/23 10:02) Rash trimethoprim [From Bactrim] Adverse Reaction (Verified 11/24/23 10:02) Rash Medication List - Last Reconciled 11/24/23 by Kofi Prince MD allopurinol Take 0.5 tabs daily for 1 week then 1 tab daily amlodipine 5 mg PO DAILY atorvastatin 10 mg PO DAILY colchicine 0.6 mg PO DAILY estradiol 10 mcg vaginal 2XW nebivolol mg PO omeprazole 20 mg PO DAILY prednisone Take 3 tabs daily for 3 days, 2 tabs daily for 3 days and 1 tab daily for 3 days then stop valsartan-hydrochlorothiazide 320-12.5 mg 1 tab PO DAILY HPI Comments Details: 73-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 She has been taking her allopurinol 100 mg daily and colchicine 0.6 mg daily. Colchicine causes some GI upset but not enough to discontinue the medication. She denies any diarrhea. Has not consumed alcohol since last visit. She states that the pain and swelling of her left 5th finger is improved. Now it only hurts when she bumps it against something. Initial history: This is a 72-year-old female who presents for evaluation of gout. Patient stated that she started having gout attacks 10-12 years ago usually affecting her bit dose, she would have 1 or 2 attacks in a year. Usually treated with indomethacin which was helpful but caused some stomach upset. She states that 2 weeks ago she went to urgent care due to abrupt onset of right middle finger pain and swelling. A punctured it and some fluid came out, infection was suspected and she was prescribed antibiotics with some improvement. Two days ago she started to have similar left 5th DIP pain redness and swelling. Could not even touch the skin. She went to urgent Care, she was diagnosed with infection and prescribed antibiotics. She then followed with her PCP Dr. Huynh yesterday who diagnosed gout and prescribed ibuprofen. Stated that the pain has improved somewhat since yesterday. She also is having pain and swelling of her left big toe. Patient denies any history of kidney stones. She drinks 2 glasses of white wine almost nightly with dinner and a few more drinks on the weekends. 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 Brother Gout Father Gout Other Family history of heart disease Social History Alcohol intake: current Alcohol intake frequency: 0-2 drinks per day Alcohol type: wine Patient Tobacco Use Status: Former Tobacco user Review of Systems [employer] Reports arthralgias Physical Exam Vital Signs: Last Vital Signs Pulse 75 11/24/23 10:03 BP 115/62 11/24/23 10:03 Pulse Ox 98 11/24/23 10:03 Oxygen Delivery Method Room Air 11/24/23 10:03 BMI result Body Mass Index 23.9 Const General: cooperative, healthy appearing and comfortable Nutritional Appearance: average body habitus Orientation/consciousness: patient oriented x3 Limitations: no limitations HEENT Head: Yes normocephalic and Yes atraumatic Mouth: moist mucous membranes Resp Effort & Inspection: normal respiratory effort and able to speak in complete sentences Auscultation: clear to auscultation bilaterally Cardio Rate: regular rate Rhythm: regular rhythm Neuro General: patient oriented x3 Extrem Other: Osteoarthritic changes of both hands Right 3rd DIP tophus, nontender Left 5th finger DIP with tophi, erythema , only minimally tender Normal range of motion of elbows and shoulders Right foot bunion with likely a tophus on top of it No synovitis both feet Assessment & Plan Assessment & Plan (1) 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 On allopurinol 100 mg daily and colchicine 0.6 mg daily. Uric acid level 5.8 Mg/dL I had a long conversation about gout management with patient. For now we will increase allopurinol to 200 mg daily. Would target uric acid level to less than 5 mg/dL. Continue colchicine 0.6 mg daily Discussed with patient that if she would like prompt resolution of the tophi of her fingers, hand surgery evaluation would be warranted. At this time, patient states it's only minimally symptomatic Patient would really like to go back to alcohol consumption. Advised patient to only have 2-3 drinks a week and we will monitor her Labs before next visit in 3 months Plan I spent 26 minutes reviewing patient's chart, evaluating patient, ordering diagnostic workup, counseling patient and documenting in the chart Orders: Orders Uric Acid 3 Months M1A.9XX1 - Chronic gout, unspecified, with tophus (tophi) Comprehensive Met. Panel 3 Months M1A.9XX1 - Chronic gout, unspecified, with tophus (tophi) Medications: Changed From allopurinol Take 0.5 tabs daily for 1 week then 1 tab daily 90 tabs 0RF To allopurinol 200 mg (2 x 100 mg) PO DAILY 180 tabs 0RF Refilled colchicine 0.6 mg PO DAILY 90 tabs 0RF Coding Level of Care Code Est Pt Level 4 (45503) Diagnoses Tophaceous gout M1A.9XX1
[2023-11-24 10:03] VITALS: BP 115/62; PULSE 75; O2SAT 98; BMI 23.9
== END 2023-11-24 10:24 | disposition home or self-care (01) ==
PROVIDERS: PCP Internal Medicine; Visit Provider Student in an Organized Health Care Education/Training Program
DX: M1A.9XX1 Chronic gout, unspecified, with tophus (tophi) (principal)
CPT/HCPCS: 99214

== ENCOUNTER → 2023-11-24 09:57 | Outpatient (BNVA) | payer MEDICARE, SELFPAY | PROVIDERS: PCP Internal Medicine; Visit Provider Student in an Organized Health Care Education/Training Program | DX: M1A.9XX1 Chronic gout, unspecified, with tophus (tophi) (principal); Z79.899 Other long term (current) drug therapy | CPT/HCPCS: 99212 ==

== ENCOUNTER 2023-12-23 11:28 | Outpatient (REF) | payer MEDICARE, SELFPAY ==
[2023-12-23 12:41] LABS: Estimated Average Glucose 108 mg/dL; Hemoglobin A1c % 5.4 % (<6.0)
[2023-12-23 12:44] LABS: Alanine Aminotransferase 55 U/L (0-31); Albumin Level 4.5 g/dL (3.5-5.0); Alkaline Phosphatase 88 U/L (39-117); Aspartate Amino Transferase 60 U/L (5-31); Bilirubin Direct 0.2 mg/dL (0.0-0.5); Bilirubin Total 0.7 mg/dL (0.0-1.0); Cholesterol 167 mg/dL (<200); Glucose Fasting 107 mg/dL (60-99); HDL Cholesterol 44 mg/dL (>40); LDL Cholesterol Calculated 79 mg/dL (<100); Total Protein 7.3 g/dL (6.5-8.0); Triglycerides 223 mg/dL (<150)
[2023-12-23 12:49] LABS: Reflex LDLD? No
== END 2023-12-23 11:29 | disposition home or self-care (01) ==
LOC: HO.LNP 11:28
PROVIDERS: Visit Provider Internal Medicine
DX: E78.00 Pure hypercholesterolemia, unspecified (principal); R73.09 Other abnormal glucose
CPT/HCPCS: 80061; 80076; 82947; 83036

== ENCOUNTER 2024-02-20 09:26 | Outpatient (REF) | payer MEDICARE, SELFPAY ==
[2024-02-20 11:33] LABS: Alanine Aminotransferase 84 U/L (0-31); Albumin Level 4.2 g/dL (3.5-5.0); Alkaline Phosphatase 97 U/L (39-117); Anion Gap 12 (12-20); Aspartate Amino Transferase 89 U/L (5-31); Bilirubin Total 0.8 mg/dL (0.0-1.0); Blood Urea Nitrogen 18 mg/dL (9-16); Carbon Dioxide 28 mmol/L (22-29); Chloride 103 mmol/L (96-108); Estimated Glomerular Filt Rate > 60; Glucose Random 101 mg/dL (60-115); Potassium 4.3 mmol/L (3.3-5.1); Sodium 139 mmol/L (135-145); Total Protein 7.2 g/dL (6.5-8.0); Uric Acid 4.3 mg/dL (2.4-5.7)
== END 2024-02-20 09:27 | disposition home or self-care (01) ==
LOC: HO.LAB 09:26
PROVIDERS: PCP Internal Medicine; Visit Provider Student in an Organized Health Care Education/Training Program
DX: M1A.9XX1 Chronic gout, unspecified, with tophus (tophi) (principal)
CPT/HCPCS: 36415; 80053; 84550

== ENCOUNTER 2024-02-24 08:05 | Outpatient (AMB) | payer MEDICARE, SELFPAY ==
--- NOTE | 2024-02-24 08:09 | MHC.OFFVIS ---
Vital Signs 02/24/24 08:15 Height 5 ft 4 in Weight 137 lb 12.623 oz BMI 23.6 BP 120/70 Blood Pressure Location Rt brachial Position Sitting Pulse 74 Pulse Source Pulse Oximeter Pulse Oximetry (%) 95 Oxygen Delivery Method Room Air Intake Visit Reasons: Gout Intake Note: Patient presents for Gout. Allergies nitrofurantoin [From Macrodantin] Adverse Reaction (Verified 02/24/24 08:13) Rash sulfamethoxazole [From Bactrim] Adverse Reaction (Verified 02/24/24 08:13) Rash trimethoprim [From Bactrim] Adverse Reaction (Verified 02/24/24 08:13) Rash Medication List - Last Reconciled 02/24/24 by Kofi Prince MD allopurinol 200 mg (2 x 100 mg) PO DAILY amlodipine 5 mg PO DAILY colchicine 0.6 mg PO DAILY estradiol 10 mcg vaginal 2XW nebivolol mg PO omeprazole 20 mg PO DAILY prednisone Take 3 tabs daily for 3 days, 2 tabs daily for 3 days and 1 tab daily for 3 days then stop valsartan-hydrochlorothiazide 320-12.5 mg 1 tab PO DAILY HPI Comments Details: 73-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 On allopurinol 200 mg daily and colchicine 0.6 mg daily. She states that she has been doing well overall in terms of her gout. Has not had any gout flare-ups. She feels that the tophi are a little smaller. She states that she has better range of motion of her toes bilaterally. She has 1 to 1.5 alcoholic beverages daily. Initial history: This is a 72-year-old female who presents for evaluation of gout. Patient stated that she started having gout attacks 10-12 years ago usually affecting her bit dose, she would have 1 or 2 attacks in a year. Usually treated with indomethacin which was helpful but caused some stomach upset. She states that 2 weeks ago she went to urgent care due to abrupt onset of right middle finger pain and swelling. A punctured it and some fluid came out, infection was suspected and she was prescribed antibiotics with some improvement. Two days ago she started to have similar left 5th DIP pain redness and swelling. Could not even touch the skin. She went to urgent Care, she was diagnosed with infection and prescribed antibiotics. She then followed with her PCP Dr. Huynh yesterday who diagnosed gout and prescribed ibuprofen. Stated that the pain has improved somewhat since yesterday. She also is having pain and swelling of her left big toe. Patient denies any history of kidney stones. She drinks 2 glasses of white wine almost nightly with dinner and a few more drinks on the weekends. 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 Brother Gout Father Gout Other Family history of heart disease Social History Alcohol intake: current Alcohol intake frequency: 0-2 drinks per day Alcohol type: wine Patient Tobacco Use Status: Former Tobacco user [place] [facility] [place] deformity and Denies arthralgias Physical Exam Vital Signs: Last Vital Signs Pulse 74 02/24/24 08:15 BP 120/70 02/24/24 08:15 Pulse Ox 95 02/24/24 08:15 Oxygen Delivery Method Room Air 02/24/24 08:15 BMI result Body Mass Index 23.6 Const General: cooperative, healthy appearing and comfortable Nutritional Appearance: average body habitus Orientation/consciousness: patient oriented x3 Limitations: no limitations HEENT Head: Yes normocephalic and Yes atraumatic Mouth: moist mucous membranes Resp Effort & Inspection: normal respiratory effort and able to speak in complete sentences Auscultation: clear to auscultation bilaterally Neuro General: patient oriented x3 Extrem Other: Osteoarthritic changes of both hands Right 3rd DIP tophus, nontender Left 5th finger DIP with tophi, erythema no warmth or swelling Normal range of motion of elbows and shoulders Right foot bunion with likely a tophus on top of it No synovitis both feet Assessment & Plan Assessment & Plan (1) Tophaceous gout: Comment: Allopurinol + colchicine 09/2023 colchcine DC 02/2024 Code(s): M1A.9XX1 - Chronic gout, unspecified, with tophus (tophi) Category: Medical Plan: This is a 73-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 On allopurinol 200 mg daily and colchicine 0.6 mg daily. No gout flare-ups since last visit. Uric acid level 4.3 Mg/dL at target. Our target in her case is less than 5 mg/dL given her tophi Continue allopurinol 200 mg daily. DC colchicine. Patient has been on colchicine for approximately 5 months now Labs before next visit in 4 months (2) Transaminitis: Code(s): R74.01 - Elevation of levels of liver transaminase levels Category: Medical Plan: Getting slightly worse. I discontinued colchicine today. Patient has a follow-up appointment with her PCP Dr. Huynh next week. Advised patient to discuss with him Plan I spent 26 minutes reviewing patient's chart, evaluating patient, ordering diagnostic workup, counseling patient and documenting in the chart Orders: Orders Comprehensive Met. Panel 4 Months M1A.9XX1 - Chronic gout, unspecified, with tophus (tophi) Uric Acid 4 Months M1A.9XX1 - Chronic gout, unspecified, with tophus (tophi) Medications: Refilled allopurinol 200 mg (2 x 100 mg) PO DAILY 180 tabs 1RF Discontinued prednisone Discontinued Reason: Doctor's Order Take 3 tabs daily for 3 days, 2 tabs daily for 3 days and 1 tab daily for 3 days then stop 18 tabs 1RF colchicine Discontinued Reason: Doctor's Order 0.6 mg PO DAILY 90 tabs 0RF Coding Level of Care Code Est Pt Level 4 (77260) Diagnoses Tophaceous gout M1A.9XX1 Transaminitis R74.01
[2024-02-24 08:15] VITALS: BP 120/70; PULSE 74; O2SAT 95; BMI 23.6
== END 2024-02-24 08:31 | disposition home or self-care (01) ==
PROVIDERS: PCP Internal Medicine; Visit Provider Student in an Organized Health Care Education/Training Program
DX: M1A.9XX1 Chronic gout, unspecified, with tophus (tophi) (principal); R74.01 Elevation of levels of liver transaminase levels
CPT/HCPCS: 99214

== ENCOUNTER → 2024-02-24 08:05 | Outpatient (BNVA) | payer MEDICARE, SELFPAY | PROVIDERS: PCP Internal Medicine; Visit Provider Student in an Organized Health Care Education/Training Program | DX: M1A.9XX1 Chronic gout, unspecified, with tophus (tophi) (principal); R74.01 Elevation of levels of liver transaminase levels | CPT/HCPCS: 99212 ==

== ENCOUNTER 2024-03-01 15:19 | Outpatient (REF) | payer MEDICARE, SELFPAY ==
[2024-03-01 15:46] LABS: Alanine Aminotransferase 68 U/L (0-31); Albumin Level 4.4 g/dL (3.5-5.0); Alkaline Phosphatase 90 U/L (39-117); Aspartate Amino Transferase 49 U/L (5-31); Bilirubin Direct 0.2 mg/dL (0.0-0.5); Bilirubin Total 0.4 mg/dL (0.0-1.0); Cholesterol 206 mg/dL (<200); HDL Cholesterol 36 mg/dL (>40); Iron 33 mcg/dL (30-160); LDL Cholesterol Calculated 116 mg/dL (<100); Percent Iron Saturation 14 % (15-50); Total Iron Binding Capacity 242 mcg/dL (228-428); Total Protein 7.6 g/dL (6.5-8.0); Triglycerides 272 mg/dL (<150); Unsaturated Iron Binding 209 ug/dL
[2024-03-01 15:57] LABS: Ferritin 944 ng/mL (10-250)
== END 2024-03-01 15:20 | disposition home or self-care (01) ==
LOC: HO.LNP 15:19
PROVIDERS: Visit Provider Internal Medicine
DX: E11.9 Type 2 diabetes mellitus without complications (principal); E83.119 Hemochromatosis, unspecified; R79.89 Other specified abnormal findings of blood chemistry
CPT/HCPCS: 80061; 80076; 81256; 82728; 83540

== ENCOUNTER 2024-04-27 11:37 | Outpatient (REF) | payer MEDICARE, SELFPAY ==
[2024-04-27 12:52] LABS: Alanine Aminotransferase 75 U/L (0-31); Albumin Level 4.1 g/dL (3.5-5.0); Alkaline Phosphatase 100 U/L (39-117); Aspartate Amino Transferase 66 U/L (5-31); Bilirubin Direct 0.2 mg/dL (0.0-0.5); Bilirubin Total 0.6 mg/dL (0.0-1.0); Total Protein 6.8 g/dL (6.5-8.0)
== END 2024-04-27 11:38 | disposition home or self-care (01) ==
LOC: HO.LNP 11:37
PROVIDERS: Visit Provider Internal Medicine
DX: R79.89 Other specified abnormal findings of blood chemistry (principal)
CPT/HCPCS: 80076

== ENCOUNTER 2024-06-03 13:54 | Outpatient (REF) | payer MEDICARE, SELFPAY ==
[2024-06-03 14:52] LABS: MANUAL DIFF FLAG NO
[2024-06-03 15:01] LABS: Basophils Absolute Auto 0.1 X10*3/uL (0.0-0.2); Eosinophils Absolute Auto 0.3 X10*3/uL (0.0-0.4); Eosinophils Percent Auto 4.1 % (0-4); Hematocrit 38.4 % (37.0-47.0); Hemoglobin 12.6 g/dl (12.0-16.0); Imm Gran Abs Auto 0.02 X10*3/uL (0.00-0.03); Imm Gran Pct Auto 0.3 % (0.0-0.4); Lymphocytes Absolute Auto 2.6 X10*3/uL (1.2-4.9); Lymphocytes Percent Auto 43.4 % (20-40); Mean Corpuscular HGB Conc 32.8 g/dl (31.0-35.0); Mean Corpuscular Hemoglobin 32.8 pg (27.0-33.0); Mean Platelet Volume 9.5 fL (9.4-12.3); Monocytes Absolute Auto 0.5 X10*3/uL (0.1-1.2); Monocytes Percent Auto 8.1 % (2-11); Neutrophils Absolute Auto 2.6 x10*3/uL (2.0-8.3); Neutrophils Percent Auto 43.1 % (45-73); Platelet Count 200 X10*3/uL (160-400); Red Blood Count 3.84 X10*6/uL (4.20-5.50)
[2024-06-03 15:08] LABS: Prothrombin Time 11.4 SEC (10.9-12.4)
[2024-06-03 15:45] LABS: Alanine Aminotransferase 111 U/L (0-31); Albumin Level 4.4 g/dL (3.5-5.0); Aspartate Amino Transferase 91 U/L (5-31); Bilirubin Direct 0.1 mg/dL (0.0-0.5); Bilirubin Total 0.4 mg/dL (0.0-1.0); Iron 83 mcg/dL (30-160); Percent Iron Saturation 33 % (15-50); Total Iron Binding Capacity 255 mcg/dL (228-428); Total Protein 7.5 g/dL (6.5-8.0); Unsaturated Iron Binding 172 ug/dL
[2024-06-03 15:49] LABS: Alkaline Phosphatase 113 U/L (39-117)
[2024-06-06 23:53] LABS: Smooth Muscle Antibody <20 U (<20)
[2024-06-08 10:04] LABS: Anti Nuclear Antibody Pattern Nuclear, Speckled; Anti Nuclear Antibody Screen POSITIVE (NEGATIVE); Anti Nuclear Antibody Titer 1:40 titer
[2024-06-08 11:04] LABS: Mitochondrial Antibodies NEGATIVE (NEGATIVE)
[2024-06-09 15:52] LABS: FIB-ALT 81 U/L (6-29); FIB-Alpha-2-Macroglobulin 239 mg/dL (106-279); FIB-Apolipoprotein A1 157 mg/dL (101-198); FIB-GGT 59 U/L (3-65); FIB-Haptoglobin 73 mg/dL (43-212); FIB-Total Bilirubin 0.4 mg/dL (0.2-1.2); Liver Fibrosis Score 0.44; Liver Fibrosis Stage F1-F2; Nec Inflam Act Grade A2; Nec Inflam Act Score 0.53; Reference ID 5287056
== END 2024-06-03 13:55 | disposition home or self-care (01) ==
LOC: HO.LAB 13:54
PROVIDERS: PCP Internal Medicine; Visit Provider Internal Medicine Gastroenterology
DX: R79.89 Other specified abnormal findings of blood chemistry (principal)
CPT/HCPCS: 36415; 80076; 81596; 83540; 85025; 85610; 86015; 86038; 86039; 86381

== ENCOUNTER 2024-06-10 08:21 | Outpatient (REF) | payer MEDICARE, SELFPAY ==
--- NOTE | ~2024-06-10 | US_ITS ---
EXAMINATION: US ABDOMEN COMPLETE WITH LIVER ELASTOGRAPHY HISTORY: ELEVATED LIVER FUNCTION TESTS TECHNIQUE: Real-time grayscale ultrasound imaging of the abdomen was performed and images were reviewed. COMPARISON: Comparison is made with the prior examination dated 10/04/2021. FINDINGS: Liver: The liver is normal in size, but demonstrates increased echotexture, consistent with steatosis. No focal mass or intrahepatic biliary ductal dilatation is identified. There is normal hepatopedal flow in the portal vein. Ultrasound elastography of the liver was performed with 10 separate measurements of the liver parenchyma with the patient in the supine position. Measurements were obtained approximately 2 cm below Pavel's capsule and perpendicular to the capsule. Images are of satisfactory quality. The median shear wave velocity is 1.66 m/s. The interquartile range/median (IQR/median) is 0.10. Gallbladder and biliary tree: The gallbladder is unremarkable, without evidence of calculi, wall thickening, or pericholecystic fluid. There is no sonographic Galvan sign. The common bile duct is normal in caliber measuring 2 mm. Kidneys: The right kidney measures 11.3 cm in length. The left kidney measures 11.2 cm in length. There are bilateral renal cysts, including a 5 mm cyst in the interpolar region of the right kidney, a 2.7 x 1.3 x 2.7 cm cyst at the lower pole of the right kidney, a 1.5 x 1.1 x 1.1 cm cyst in the interpolar region of the left kidney and a 10 mm cyst in the interpolar region of the left kidney. The kidneys are otherwise unremarkable, without evidence of solid masses, hydronephrosis, or calculi. Pancreas: The pancreatic head, neck, and body are unremarkable. The pancreatic tail is obscured by bowel gas. Spleen: The spleen is normal in size and contour, measuring 11.3 cm in length. Abdominal aorta and inferior vena cava: The visualized portions of the abdominal aorta and inferior vena cava are normal in caliber. There is no free fluid in the abdomen. US/US abdomen comp w elastography IMPRESSION: Hepatic steatosis. The median shear wave velocity is 1.66 m/s, corresponding to a median liver stiffness of 8.60 kPa. The IQR/median value is 0.10. This is indicative of a quality data set. Findings are indicative of a low elastography value which rules out advanced chronic liver disease in asymptomatic patients. REFERENCE: Society of Radiologists in Ultrasound Liver Stiffness Thresholds (2020): LIVER STIFFNESS THRESHOLDS: *Shear wave velocity less than 1.3 m/s (Liver Stiffness equal or less than 5 kPa): High probability of being normal. *Shear wave velocity less than 1.7 m/s (Liver Stiffness less than 9 kPa): In the absence of other known clinical signs, rules out compensated advanced chronic liver disease. *Shear wave velocity between 1.7-2.1 m/s (Liver Stiffness 9-13 kPa): Suggestive of compensated advanced chronic liver disease but need further test for confirmation. *Shear wave velocity between 2.1-2.4 m/s (Liver Stiffness 13-17 kPa): Rules in compensated advanced chronic liver disease. *Shear wave velocity greater than 2.4 m/s (Liver Stiffness over 17 kPa): Suggestive of clinically significant portal hypertension. QUALITY OF DATA SET: *IQR/Median value equal or less than 0.15 implies a quality data set. *IQR/Median value over 0.15 implies a poor quality data set. SIGNIFICANT CHANGE FROM PRIOR EXAM: Significant change if liver stiffness measurement is 10% or greater from prior exam. OTHER CONSIDERATIONS: The stage of liver fibrosis may be overestimated in the setting of acute hepatitis, liver inflammation, elevated liver function tests, hepatic vascular congestion, obstructive cholestasis, non-fasting state, and infiltrative diseases such as amyloidosis and lymphoma. In some patients with NAFLD, the liver stiffness thresholds for compensated advanced chronic liver disease may be lower. In causes other than viral hepatitis and NAFLD, liver stiffness thresholds are not well established. Electronically signed by: Steven Gonzalez MD 06/10/2024 09:25 AM [facility]
== END 2024-06-10 08:22 | disposition home or self-care (01) ==
LOC: HO.US 08:21
PROVIDERS: PCP Internal Medicine; Visit Provider Internal Medicine Gastroenterology
DX: R79.89 Other specified abnormal findings of blood chemistry (principal)
CPT/HCPCS: 76700; 76981

== ENCOUNTER → 2024-06-10 08:23 | Outpatient (BNV) | payer MEDICARE, SELFPAY | PROVIDERS: PCP Internal Medicine; Visit Provider Radiology Diagnostic Radiology | DX: K76.0 Fatty (change of) liver, not elsewhere classified (principal) | CPT/HCPCS: 76700 ==

== ENCOUNTER 2024-06-25 10:44 | Outpatient (REF) | payer MEDICARE, SELFPAY ==
[2024-06-25 10:47] LABS: MANUAL DIFF FLAG NO
[2024-06-25 11:17] LABS: Basophils Absolute Auto 0.1 X10*3/uL (0.0-0.2); Basophils Percent Auto 0.9 % (0-2); Eosinophils Absolute Auto 0.2 X10*3/uL (0.0-0.4); Eosinophils Percent Auto 3.8 % (0-4); Hematocrit 41.5 % (37.0-47.0); Hemoglobin 13.5 g/dl (12.0-16.0); Imm Gran Abs Auto 0.01 X10*3/uL (0.00-0.03); Imm Gran Pct Auto 0.2 % (0.0-0.4); Lymphocytes Absolute Auto 2.3 X10*3/uL (1.2-4.9); Lymphocytes Percent Auto 42.7 % (20-40); Mean Corpuscular HGB Conc 32.5 g/dl (31.0-35.0); Mean Corpuscular Hemoglobin 32.6 pg (27.0-33.0); Mean Corpuscular Volume 100.2 fL (80.0-98.0); Mean Platelet Volume 10.2 fL (9.4-12.3); Monocytes Absolute Auto 0.5 X10*3/uL (0.1-1.2); Monocytes Percent Auto 8.9 % (2-11); Neutrophils Absolute Auto 2.3 x10*3/uL (2.0-8.3); Neutrophils Percent Auto 43.5 % (45-73); Platelet Count 195 X10*3/uL (160-400); Red Blood Count 4.14 X10*6/uL (4.20-5.50); Red Cell Distribution Width 13.8 % (11.0-16.0); White Blood Count 5.3 X10*3/uL (4.8-10.8)
[2024-06-25 11:26] LABS: Estimated Average Glucose 105 mg/dL; Hemoglobin A1C 126.2693 umol/L; Hemoglobin A1c % 5.3 % (<6.0); Total Hemoglobin (HGBA1C) 3620.7163 umol/L
[2024-06-25 12:24] LABS: Alanine Aminotransferase 88 U/L (0-31); Albumin Level 4.3 g/dL (3.5-5.0); Alkaline Phosphatase 104 U/L (39-117); Anion Gap 16 (12-20); Aspartate Amino Transferase 97 U/L (5-31); Bilirubin Direct 0.2 mg/dL (0.0-0.5); Bilirubin Total 0.7 mg/dL (0.0-1.0); Blood Urea Nitrogen 24 mg/dL (9-16); Calcium 10.4 mg/dL (8.4-10.2); Carbon Dioxide 27 mmol/L (22-29); Chloride 106 mmol/L (96-108); Cholesterol 199 mg/dL (<200); Estimated Glomerular Filt Rate 57; Glucose Fasting 104 mg/dL (60-99); HDL Cholesterol 35 mg/dL (>40); LDL Cholesterol Calculated 132 mg/dL (<100); Potassium 4.3 mmol/L (3.3-5.1); Sodium 145 mmol/L (135-145); Total Protein 7.6 g/dL (6.5-8.0); Triglycerides 160 mg/dL (<150)
== END 2024-06-25 10:45 | disposition home or self-care (01) ==
LOC: HO.LNP 10:44
PROVIDERS: Visit Provider Internal Medicine
DX: Z00.00 Encounter for general adult medical examination without abnormal findings (principal); I10 Essential (primary) hypertension; E78.00 Pure hypercholesterolemia, unspecified; R79.89 Other specified abnormal findings of blood chemistry
CPT/HCPCS: 80053; 80061; 80076; 82248; 83036; 85025

== ENCOUNTER 2024-07-09 09:30 | Outpatient (REF) | payer MEDICARE, SELFPAY | END 2024-07-09 09:31 | disposition home or self-care (01) | LOC: HO.LNP 09:30 | PROVIDERS: Visit Provider Internal Medicine | DX: Z13.89 Encounter for screening for other disorder (principal) | CPT/HCPCS: 84550 ==

== ENCOUNTER 2024-07-09 10:15 | Outpatient (REF) | payer MEDICARE, SELFPAY ==
[2024-07-09 10:25] LABS: Appearance Urine Clear; Color Urine Yellow; Glucose Urine UA Negative (Negative); Leukocyte Esterase Urine Negative (Negative); Nitrite Urine Negative (Negative); Specific Gravity - Urine 1.015 (1.005-1.025); Urine Blood Negative (Negative); Urine Ketones Negative (Negative); Urine Protein Negative (Neg-Trace)
[2024-07-09 10:27] LABS: Bacteria Urine None Seen (None Seen); Hyaline Casts Urine 0-2 /LPF (0-2); RBC Urine 0-2 /HPF (0-2); Squamous Epithelial Cell Urine 0-2 /HPF (0-2); WBC Urine 0-5 /HPF (0-5)
--- OUTSIDE RECORDS SUMMARY | 2024-07-09 11:06 | XMS_ITS ---
Author Organization Paulino Huynh MD Address [address] [place], [place] [id number] Care Team Providers Care Merchandising Manager Name Role Phone Paulino Huynh Primary Care [...] Problem Status W/U Status Risk Notes Problem [id number] Gouty arthritis (M10.9) Active confirmed Vital Signs Blood pressure systolic 98 mm Hg 05/04/20 24 Blood pressure diastolic 60 mm Hg 024 Height 64.25 in 05/04/2024 Weight 137 lbs 05/04/2024 BMI 23.33 kg/m2 05/04/2024 Encounters Encounter Location Date Provider Diagnosis Paulino Huynh MD [address] [place] [phone] 05/04/2024 Paulino Huynh Pure hypercholestero lemia E78.00 [...] Up: 2 Months, Reason: Provider Name:Paulino dyer, 12/30/2024 07:15:00 AM, [address] [place] [address], [address], [phone], Provider Name:Paulino dyer, 01/06/2025 10:00:00 AM, [address] [place] [address], [address], [phone], Provider Name:Paulino dyer, 07/08/2025 07:15:00 AM, [address] [place] [address], [phone], Provider Name:Paulino dyer, 07/15/2025 11:00:00 AM, [address] [place] [address], [phone], Progress Notes * Kiersten GILLIS DDOB: [birth year] (73 yo F)Acc No.[id number]:05/04/2024 Patient:?Kiersten Gillis Provider:?Paulino Huynh MD :1950???Age:73 Y???Sex:Female D ate:05/04/2024 Address:[address] , [facility], [id number] Subjective: * Chief Complaints: * ???2 month/ must see labs li jaylen * HPI: ???Symptom(s):? patientis a 73 yo female here for 2 month follow up visit and discussion of recent labs. * ROS:?General/Constitutional:?Denies?Chills.?Denies?Fatigue.?Denies?Fever.?Denies?Headache.?ENT:?Patient denies?decreased sense of smell , any loss of taste , sore throat.?Denies?Sore throat.?Respiratory:?Denies?Cough.?Denies?Shortness of breath at rest.?Denies?Shortness of breath with exertion.?Gastrointestinal:?Denies?Diarrhea.?Denies?Nausea.?Musculoskeletal:?Patient denies?muscle aches.?Peripheral Vascular:?Patient denies?red and blue toes.? * Medical History:? * Surgical History:? * Hospitalization/Major Diagno stic Procedure:? * Medications:?TakingAllopurin ol 100 MG Tablet 2 tablet Orally Once [...] reviewed and reconciled with the patient * Allergies:?Bactrim DS: rashM acrodantin: rashyes[Allergies Verified] Objective: * Vitals:?Ht: 64.25, Wt:137, B DC:23.33, BP:98/60. * Examination: ???General Examination: ?GENERAL APPEARANCE:?well developed, well nourished.?SKIN:?good turgor.?HEART:?regular rate and rhythm , no murmurs, rubs, gallops.?LUNGS:?no wheezes, rales, rhonchi , good air movement , clear to auscultation bilaterally.?EXTREMITIES:?THE TOPHI? are decreasing in size.? Assessment: * Assessment: 1.?Pure hypercholesterolemia - E78.00 (Primary)?2.?Elevated LFTs - R79.89?3.?Gouty arthritis - M10.9? Plan: * Treatment: 2.?Elevated LFTs? Notes: is not caused by alcohol, discused findings of recent LFT's, will contnue to monitor?? 3.?Gouty arthritis? Notes: is getting better, will continue to monitor?? * Procedure Codes:? * Follow Up:?2 Months * * Sign off status: Completed true * Provider:?Paulino Huynh MD Date:?1 07/05/2023 Generated for Radha goncalves/Khari/Michaelsmitting on:?07/09/2024 11:06 AM EST History and Physical Notes * HPI [...]
--- OUTSIDE RECORDS SUMMARY | 2024-07-09 11:06 | XMS_ITS ---
Author Organization [facility] Address [address] [facility] [address] [place] [address] Care Team Providers Care Oracle Pl Sql Developer Name Role Phone Paulino Huynh MD Primary Care Provider Rolando Pruitt Jr, Prem Shea [phone] REASON FOR VISIT labs and ultrasound Encounters Encounter Location Date Provider Diagnosis [facility] [address] [facility] [address] [place] [address] 06/14/2024 Prem Pruitt Jr PLAN OF TREATMENT Next Appt Details Provider Name:Prem carreno Jr, 11/22/2024 09:00:00 AM, [address] [place] [address], [address], [place], [address],
--- OUTSIDE RECORDS SUMMARY | 2024-07-09 11:06 | XMS_ITS ---
Author Organization Paulino Huynh MD Address [address] [place], [place] [id number] Care Team Providers Care Assistant Women'S Basketball Coach Name Role Phone Paulino Huynh Primary Care Provider Results Component Value Reference Range Notes Complete Blood Count Auto Di ff Reviewed date:06/25/2024 12:28:42 PM Interpretation: Performing Lab:[facility], [address] [place] [phone] Notes/Report: White Blood Count 5.3 4.8-10.8 X10*3/uL [...] NRBC Abs Auto 0.000 0.0-0.012 X10*3/uL Comprehensive [place]. Panel Fa Reviewed date:06/25/2024 12:28:25 PM Interpretation: Performing Lab:[address] [address] Notes/Report: Sodium 145 135-145 mmol/L Potassium 4.3 [...] Panel Reviewed date:06/25/2024 12:27:53 PM Interpretation: Performing Lab:[address] [address] Notes/Report: Bilirubin Direct 0.2 0.0-0.5 mg/dL Lipid Panel Reviewed date:06/25/2024 12:27:40 PM Interpretation: Performing Lab:[address] [address] Notes/Report: Triglycerides 160 <150 mg/dL Desirable Triglyceride: [...] A1c Reviewed date:06/25/2024 12:28:02 PM Interpretation: Performing Lab:[facility], [address] [place] [address] Notes/Report: Hemoglobin A1c % 5.3 <6.0 % [...] average glucose, using the formula of the C5E-Hqmwbil Average Glucose study (ADAG), Diabetes Care, Vol.31,#8, Dec. 2007 REASON FOR VISIT yearly fasting labs Encounters Encounter Location Date Provider Diagnosis Paulino Huynh MD [address] [place], [place] [id number] 06/25/2024 Paulino Huynh Blood tests for rout [...] (ICD-1 0 - R79.89) Plan Of Treatment Pending Test Test Name Order Date Microalbumin, Random 06/25/2024 UA ClnCatch+Micro w/rflx Cult 06/25/2024 Next Appt Details Provider Name:Paulino Gant ier, 12/30/2024 07:15:00 AM, [address] [place] [address], [address] [place] [address], [phone], Provider Name:Paulino Gant ier, 01/06/2025 10:00:00 AM, [address] [place] [address], [address] [place] [address], [phone], Provider Name:Paulino Gant ier, 07/08/2025 07:15:00 AM, [address] [place] [address], Suite [facility], [place], [place], [phone], Provider Name:Paulino Gant ier, 07/15/2025 11:00:00 AM, [address] [place] [address], [address] [place] [address], [id number], Progress Notes * Kiersten GILLIS DDOB: [birth year] (73 yo F)Acc No.[id number]:06/25/2024 Progress Note Patient:?Kiersten GILLIS Provider:?Paulino Huynh MD :1950???Age:73 Y???Sex:Female D ate:06/25/2024 Address:[address] [place] [address] [address] [facility] , [phone] Subjective: * Chief Complaints: * ???1. Yearly fasting labs. * Medical History:? Objective: * Vitals:? Assessment: * Assessment: 1.?Blood tests for routine g eneral physical examination - Z00.00 (Primary)???2.?Essential hypertension - I10???3.?Prediabetes - R73.09???4.?Pure hypercholesterolemia - E78.00???5.?Abnormal LFTs - R79.89??? Plan: * Treatment: 2.?Essential hypertension?LAB: Microalbumin, Random ?LAB: UA ClnCatch+Micro w/rflx Cult ?LAB: Liver Panel (Collection Date & Time - 06/25/2024 07:45 AM) ?LAB: Lipid Panel (Collection Date & Time - 06/25/2024 07:45 AM) ?LAB: Hemoglobin A1c (Collection Date & Time - 06/25/2024 07:45 AM) 3.?Prediabetes?LAB: Microalbumin, Random ?LAB: UA ClnCatch+Micro w/rflx Cult ?LAB: Liver Panel (Collection Date & Time - 06/25/2024 07:45 AM) ?LAB: Lipid Panel (Collection Date & Time - 06/25/2024 07:45 AM) ?LAB: Hemoglobin A1c (Collection Date & Time - 06/25/2024 07:45 AM) 4.?Pure hypercholesterolemia ?LAB: Microalbumin, Random ?LAB: UA ClnCatch+Micro w/rflx Cult ?LAB: Liver Panel (Collection Date & Time - 06/25/2024 07:45 AM) ?LAB: Lipid Panel (Collection Date & Time - 06/25/2024 07:45 AM) ?LAB: Hemoglobin A1c (Collection Date & Time - 06/25/2024 07:45 AM) 5.?Abnormal LFTs?LAB: Microalbumin, Random ?LAB: UA ClnCatch+Micro w/rflx Cult ?LAB: Liver Panel (Collection Date & Time - 06/25/2024 07:45 AM) ?LAB: Lipid Panel (Collection Date & Time - 06/25/2024 07:45 AM) ?LAB: Hemoglobin A1c (Collection Date & Time - 06/25/2024 07:45 AM) * Procedure Codes:?92692 VENIP UNCT, ROUTINE* * * The named appointment provid er may or may not be the originator of this progress note, and it is not deemed complete until electronically signed by the appointment provider. Sign off status: Pending * Provider:?Paulino Huynh MD Date:?0 06/25/2024 Generated for Radha goncalves/Khari/Rosyitting on:?07/09/2024 11:06 AM EST
--- OUTSIDE RECORDS SUMMARY | 2024-07-09 11:06 | XMS_ITS | Patient Health Record ---
Author Organization [facility] Address [address] [place] [address] Care Team Providers Care Outbound Sales Specialist Name Role Phone Lino ROMAN, Paulino Primary Care Provider Rolando Pruitt Jr, Prem Unavailable [phone] ALLERGIES Allergen (clinical drug ingredient) Drug/Non Drug Allergy documented on EMR Reaction Allergy Type Onset Date Status sulfacetamide Sulfacetamide Sodium Unknown Drug Allergy Active RESULTS Component Value Reference Range Notes Complete Blood Count Auto Di ff Reviewed date:06/04/2024 01:46:28 PM Interpretation: Performing Lab:[facility], [address] [place] [phone] Notes/Report: White Blood Count 6.0 4.8-10.8 X10*3/uL Red Blood Count 3.84 4.20-5.50 X10*6/uL Hemoglobin 12.6 12.0-16.0 g/dl Hematocrit 38.4 37.0-47.0 % Mean Corpuscular Volume 100.0 80.0-98.0 fL Mean Corpuscular Hemoglobin 32.8 27.0-33.0 pg Mean Corpuscular HGB Conc 32.8 31.0-35.0 g/dl Red Cell Distribution Width 14.0 11.0-16.0 % Platelet Count 200 160-400 X10*3/uL Mean Platelet Volume 9.5 9.4-12.3 fL Neutrophils Percent Auto 43.1 45-73 % Imm Gran Pct Auto 0.3 0.0-0.4 % Lymphocytes Percent Auto 43.4 20-40 % Monocytes Percent Auto 8.1 2-11 % Eosinophils Percent Auto 4.1 0-4 % Basophils Percent Auto 1.0 0-2 % NRBC Pct Auto 0.0 0.0-0.2 /100WBC Neutrophils Absolute Auto 2.6 2.0-8.3 x10*3/u L Imm Gran Abs Auto 0.02 0.00-0.03 X10*3/uL Lymphocytes Absolute Auto 2.6 1.2-4.9 X10*3/u L Monocytes Absolute Auto 0.5 0.1-1.2 X10*3/uL Eosinophils Absolute Auto 0.3 0.0-0.4 X10*3/u L Basophils Absolute Auto 0.1 0.0-0.2 X10*3/uL NRBC Abs Auto 0.000 0.0-0.012 X10*3/uL Prothrombin Time INR Reviewed date:06/04/2024 01:46:33 PM Interpretation: Performing Lab:[address] [address] Notes/Report: Prothrombin Time 11.4 10.9-12.4 SEC INTERNATIONAL NORM RATIO 1.0 0.9-1.1 INTERNATIONAL NORMALIZED RATIO (INR) REFERENCE RANGES Reference Range For patients not on anticoagulant therapy: 0.9 - 1.1 INR ranges for oral anticoagulant therapy: For prevention and treatment of venous thrombosis and pulmonary embolism: 2.0 - 3.0 For acute myocardial infarction with aspirin therapy: 2.0 - 3.0 For acute myocardial infarction without aspirin therapy: 3.0 - 4.0 For patients with mechanical prosthetic heart valves: 2.5 - 3.5 Liver Panel Reviewed date:06/04/2024 01:46:14 PM Interpretation: Performing Lab:[address] [address] Notes/Report: Bilirubin Total 0.4 0.0-1.0 mg/dL Bilirubin Direct 0.1 0.0-0.5 mg/dL Aspartate Amino Transferase 91 5-31 U/L Alanine Aminotransferase 111 0-31 U/L Total Protein 7.5 6.5-8.0 g/dL Albumin Level 4.4 3.5-5.0 g/dL Alkaline Phosphatase 113 39-117 U/L IRON PROFILE Reviewed date:06/04/2024 01:46:23 PM Interpretation: Performing Lab:[facility], [address] [place] [phone] Notes/Report: Iron 83 30-160 mcg/dL Total Iron Binding Capacity 255 228-428 mcg/dL Percent Iron Saturation 33 15-50 % Unsaturated Iron Binding 172 Liver Fibrosis Pnl Reviewed date:06/14/2024 12:32:31 PM Interpretation: Performing Lab:[facility], [address] [place] [phone] Notes/Report: Liver Fibrosis Score 0.44 Liver Fibrosis Stage F1-F2 Liver Fibrosis Interpretation SEE NOTE minimal fibrosis Fibro Test Score (f) Metavir Score f>=0 and f<=0.21 : F0 (no fibrosis) f>0.21 and f<=0.27 : F0-F1 (no fibrosis) f>0.27 and f<=0.31 : F1 (minimal fibrosis) f>0.31 and f<=0.48 : F1-F2 (minimal fibrosis) f>0.48 and f<=0.58 : F2 (moderate fibrosis) f>0.58 and f<=0.72 : F3 (advanced fibrosis) f>0.72 and f<=0.74 : F3-F4 (advanced fibrosis) f>0.74 and f<=1.00 : F4 (severe fibrosis) Nec Inflam Act Score 0.53 Nec Inflam Act Grade A2 Nec Inflam Act Interpretation SEE NOTE significant activity ActiTest Score (a) Metavir Score a>=0 and a<=0.17 : A0 (no activity) a>0.17 and a<=0.29 : A0-A1 (no activity) a>0.29 and a<=0.36 : A1 (minimal activity) a>0.36 and a<=0.52 : A1-A2 (minimal activity) a>0.52 and a<=0.60 : A2 (significant activity) a>0.60 and a<=0.62 : A2-A3 (significant activity) a>0.62 and a<=1.00 : A3 (severe activity) TUU-Ttzjx-8-Macroglobulin 239 106-279 mg/dL FIB-Haptoglobin 73 43-212 mg/dL FIB-Apolipoprotein A1 157 101-198 mg/dL FIB-Total Bilirubin 0.4 0.2-1.2 mg/dL FIB-GGT 59 3-65 U/L FIB-ALT 81 6-29 U/L Reference ID [id number] Footnote SEE NOTE The reliability of results is dependent on compliance with the preanalytical and analytical conditions recommended by [employer]. The tests have to be deferred for: acute hemolysis, acute hepatitis, acute inflammation, extra hepatic cholestasis. The advice of a specialist should be sought for interpretation in chronic hemolysis and Gilbert's syndrome. The test interpretation is not validated in liver transplant patients. Isolated extreme values of one of the components should lead to caution in interpreting the results. In case of discordance between a biopsy result and a test, it is recommended to seek the advice of a specialist. The causes of these discordances could be due to a flaw of the test or to a flaw in the biopsy: i.e. a liver biopsy has a 33% variability rate for one fibrosis stage. FibroTest is interpretable for chronic hepatitis B and C, alcoholic and non alcoholic steatosis. ActiTest is interpretable for chronic hepatitis B and C. The performance characteristics have been determined by [facility] It has not been cleared or approved by the U.S. Food and Drug Administration. Performance characteristics refer to the analytical performance of the test. [employer], the associated logo, [employer] and all associated [employer] church are the registered trademarks of [employer]. All [employer] - (R) and (TM) - are the property of their respective owners. (C) [id number] [employer]. All rights reserved. THIS TEST WAS PERFORMED AT: [facility] [facility] [address] [place] [address] MIKAELA PADRON MD,PHD,AILEEN LASHA Reflex Titer and Pattern Reviewed date:06/09/2024 08:46:43 AM Interpretation: Performing Lab:[facility], [address] [place] [phone] Notes/Report: Anti Nuclear Antibody Screen POSITIVE NEGATIVE LASHA IFA is a first line screen for detecting the presence of up to approximately 150 autoantibodies in various autoimmune diseases. A positive LASHA IFA result is suggestive of autoimmune disease and reflexes to titer and pattern. Further laboratory testing may be considered if clinically indicated. For additional information, please refer to http://education.[employer]/faq/BBW655 (This link is being provided for informational/ educational purposes only.) Anti Nuclear Antibody Titer 1:40 A low level LASHA titer may be present in pre-clinical autoimmune diseases and normal individuals. Reference Range <1:40 Negative 1:40-1:80 Low Antibody Level >1:80 Elevated Antibody Level Anti Nuclear Antibody Pattern Nuclear, Speckled Speckled pattern is associated with mixed connective tissue disease (MCTD), systemic lupus erythematosus (SLE), Sjogren's syndrome, dermatomyositis, and systemic sclerosis/polymyositis overlap. AC-2,4,5,29: Speckled International Consensus on LASHA Patterns (https://doi.org/10.1515 /rbcb-4733-8662) THIS TEST WAS PERFORMED AT: [facility] [address] [place] [phone] JUAREZ BONILLA MD LASHA Titer 2 TNP LASHA Pattern 2 TNP LASHA Titer 3 TNP LASHA Pattern 3 TNP Mitochondrial Antibody Reviewed date:06/14/2024 12:32:59 PM Interpretation: Performing Lab:[facility], [address] [place] [phone] Notes/Report: Mitochondrial Antibodies NEGATIVE NEGATIVE THIS TEST WAS PERFORMED AT: [facility] [address] [place] [phone] JUAREZ BONILLA MD Mitochondrial Ab Titer TNP Smooth Muscle Antibody Reviewed date:06/14/2024 12:32:49 PM Interpretation: Performing Lab:[facility], [address] [place] [phone] Notes/Report: Smooth Muscle Antibody <20 <20 U Reference Range: <20 U: Negative >or=20 U: Positive Antibodies recognizing actin are the main component of smooth muscle antibodies associated with auto- immune liver disease. Actin antibodies are found in approximately 75% of patients with autoimmune hepatitis (AIH) type 1, approximately 65% of patients with autoimmune cholangitis, approximately 30% of patients with primary biliary cirrhosis and approximately 2% of healthy controls. High values are closely correlated with AIH type 1. THIS TEST WAS PERFORMED AT: [facility] [address] [place], [place] NATALYA CHAVES MD,PHD US abdomen comp w elastograp hy Reviewed date:06/14/2024 12:31:03 PM Interpretation: Performing Lab: Notes/Report: [address] [address] Ultrasound Report Signed Patient: Steven Gillis MR#: [id number] 56 : 1950 Acct:[id number] Age/Sex: 73 / F ADM Date: 06/10/24 Loc: HO.US Attending Dr: Prem Pruitt MD Ordering Physician: Prem Pruitt MD Date of Service: 06/10/24 Procedure(s): US abdomen comp w elastography Accession Number(s): [id number] cc: Paulino Huynh MD; Prem Pruitt MD EXAMINATION: US ABDOMEN COMPLETE WITH LIVER ELASTOGRAPHY HISTORY: ELEVATED LIVER FUNCTION TESTS TECHNIQUE: Real-time grayscale ultrasound imaging of the abdomen was performed and images were reviewed. COMPARISON: Comparison is made with the prior examination dated 10/04/2021. FINDINGS: Liver: The liver is normal in size, but demonstrates increased echotexture, consistent with steatosis. No focal mass or intrahepatic biliary ductal dilatation is identified. There is normal hepatopedal flow in the portal vein. Ultrasound elastography of the liver was performed with 10 separate measurements of the liver parenchyma with the patient in the supine position. Measurements were obtained approximately 2 cm below Pavel's capsule and perpendicular to the capsule. Images are of satisfactory quality. The median shear wave velocity is 1.66 m/s. The interquartile range/median (IQR/median) is 0.10. Gallbladder and biliary tree: The gallbladder is unremarkable, without evidence of calculi, wall thickening, or pericholecystic fluid. There is no sonographic Galvan sign. The common bile duct is normal in caliber measuring 2 mm. Kidneys: The right kidney measures 11.3 cm in length. The left kidney measures 11.2 cm in length. There are bilateral renal cysts, including a 5 mm cyst in the interpolar region of the right kidney, a 2.7 x 1.3 x 2.7 cm cyst at the lower pole of the right kidney, a 1.5 x 1.1 x 1.1 cm cyst in the interpolar region of the left kidney and a 10 mm cyst in the interpolar region of the left kidney. The kidneys are otherwise unremarkable, without evidence of solid masses, hydronephrosis, or calculi. Pancreas: The pancreatic head, neck, and body are unremarkable. The pancreatic tail is obscured by bowel gas. Spleen: The spleen is normal in size and contour, measuring 11.3 cm in length. Abdominal aorta and inferior vena cava: The visualized portions of the abdominal aorta and inferior vena cava are normal in caliber. There is no free fluid in the abdomen. US/US abdomen comp w elastography IMPRESSION: Hepatic steatosis. The median shear wave velocity is 1.66 m/s, corresponding to a median liver stiffness of 8.60 kPa. The IQR/median value is 0.10. This is indicative of a quality data set. Findings are indicative of a low elastography value which rules out advanced chronic liver disease in asymptomatic patients. REFERENCE: Society of Radiologists in Ultrasound Liver Stiffness Thresholds (2020): LIVER STIFFNESS THRESHOLDS: *Shear wave velocity less than 1.3 m/s (Liver Stiffness equal or less than 5 kPa): High probability of being normal. *Shear wave velocity less than 1.7 m/s (Liver Stiffness less than 9 kPa): In the absence of other known clinical signs, rules out compensated advanced chronic liver disease. *Shear wave velocity between 1.7-2.1 m/s (Liver Stiffness 9-13 kPa): Suggestive of compensated advanced chronic liver disease but need further test for confirmation. *Shear wave velocity between 2.1-2.4 m/s (Liver Stiffness 13-17 kPa): Rules in compensated advanced chronic liver disease. *Shear wave velocity greater than 2.4 m/s (Liver Stiffness over 17 kPa): Suggestive of clinically significant portal hypertension. QUALITY OF DATA SET: *IQR/Median value equal or less than 0.15 implies a quality data set. *IQR/Median value over 0.15 implies a poor quality data set. SIGNIFICANT CHANGE FROM PRIOR EXAM: Significant change if liver stiffness measurement is 10% or greater from prior exam. OTHER CONSIDERATIONS: The stage of liver fibrosis may be overestimated in the setting of acute hepatitis, liver inflammation, elevated liver function tests, hepatic vascular congestion, obstructive cholestasis, non-fasting state, and infiltrative diseases such as amyloidosis and lymphoma. In some patients with NAFLD, the liver stiffness thresholds for compensated advanced chronic liver disease may be lower. In causes other than viral hepatitis and NAFLD, liver stiffness thresholds are not well established. Electronically signed by: Steven Gonzalez MD 06/10/2024 09:25 AM [facility] Dictated By: Steven Gonzalez MD Signed By: <Electronically signed by Steven Gonzalez MD in OV> 06/10/24 0925 DD/ 0839 TD/TT: 06/10/24 0858 Director Bioinformatics: REASON FOR REFERRAL No Information MEDICATIONS Medication SIG (Take, Route, Frequency, Duration) Notes Start Date End Date Status Timolol Maleate PF 0.5 % 1 drop into aff ected eye Ophthalmic Once a day Active Colchicine 0.6 MG TAKE ONE TABLET BY M OUTH TWICE A DAY UNTIL GOUT IS BETTER AND THEN ONCE A DAY Oral for 90 Active Allopurinol 100 MG Oral for 90 Active amLODIPine Besylate 5 MG Oral for 90 Active Hair Skin & Nails Ac tive Vagifem Active Bystolic 5 MG 1 tablet Orally Once a day for 30 day(s) Active Prilosec 20 MG 2 capsule Orally twi ce a day for 10 day(s) Active IMMUNIZATIONS Vaccine Route Administration Date Status Comme nts Influenza Unknown 02/23/2019 Administered Influenza Unknown 04/11/2021 Administered SOCIAL HISTORY Tobacco Use: Social History Observation Description Date Details (start date - stop date) Former Smoker NA - NA Sex Assigned At : Social History Observation Description Sex Assigned At Unknown Tobacco Use/Smoking Question Answer Notes Patient is a former smoker How long has it been since you last smoked? > 10 years Alcohol Screen Question Answer Notes Did you have a drink contain ing alcohol in the past year? Yes How often did you have a dri nk containing alcohol in the past year? Monthly or less (1 point) How many drinks did you have on a typical day when you were drinking in the past year? 1 or 2 drinks (0 point) How often did you have 6 or more drinks on one occasion in the past year? Never (0 point) Points 1 Interpretation Negative PROBLEMS Problem Type ICD Code Onset Dates Problem Status W/U Status Risk SNOMED Code Notes Problem Colon cancer screening (Z12.11) Active confirmed 026009180 Problem Encounter for other preprocedural examination (Z01.818) Active confirmed 196196544 Problem Elevated liver function tests (R79.89) Active confirmed 344049583 VITAL SIGNS Blood pressure diastolic 00 mm Hg 05/20/2024 Height 64.25 in 05/20/2024 Blood pressure systolic 00 mm Hg 05/20/2024 Weight 138 lbs 05/20/2024 BMI 23.50 kg/m2 05/20/2024 Encounters Encounter Location Date Provider Diagnosis [facility] [address] [facility] [address] [place] [phone] 05/20/2024 Prem Pruitt Jr Elevated liver function tests R79.89 [facility] [address] [facility] [address] [place] [phone] 06/14/2024 Prem Pruitt Jr ASSESSMENTS Encounter Date Diagnosis Assessment Notes Treatment Notes Treatment Clinical Notes 05/20/2024 Elevated liver function tests (ICD-10 - R79.89) PLAN OF TREATMENT Pending Test Test Name Order Date LIVER PROFILE 05/20/2024 IRON + IBC (FE) 05/20/2024 FERRITIN 05/20/2024 CBC w/o DIFF 05/20/2024 PROTHROMBIN TIME (PT, INR) 05/20/2024 MITOCHONDRIAL AB 05/20/2024 SMOOTH MUSCLE ANTIBODIES 05/20/2024 US ABDOMEN COMP WITH ELASTOGRAPHY 2023 Liver Fibrosis Pnl 05/20/2024 LASHA Reflex Titer and Pattern 05/20/2024 Future Test Test Name Order Date COLONOSCOPY 07/08/2019 Next Appt Details Provider Name:Prem carreno Jr, 11/22/2024 09:00:00 AM, [address] [facility], [address], [place], [address], Insurance Providers Payer Name Payer Address Payer Phone Subscriber Number Group Number Insured Name Patient Relationship to Insured Coverage Start Date Coverage End Date [facility] [address] [place], [place] [id number] STEVEN MARVIN Self - patient is the insured MEDICAL (GENERAL) HISTORY Medical History History ICD Code elevated cholesterol hypertension gastroesophageal reflux disease glaucoma Fatty liver with elevated LFTs Colonoscopy 11/12, tubular adenoma, five- year followup Surgical History Surgery Date(Month/Year) section
--- OUTSIDE RECORDS SUMMARY | 2024-07-09 11:06 | XMS_ITS ---
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..] Never (0 point) Points 1 Interpretation Negative VITAL SIGNS BMI 23.50 kg/m2 05/20/2024 Blood pressure systolic 00 mm Hg 05/20/20 24 Blood pressure diastolic 00 mm Hg 024 Height 64.25 in 05/20/2024 Weight 138 lbs 05/20/2024 Encounters Encounter Location Date Provider Diagnosis [facility] [address] [place] [address] 05/20/2024 Prem Pruitt Jr Elevated liver function tests R79.89 ASSESSMENTS Encounter Date Diagnosis Assessment Notes Treatment [...] 05/20/2024 LASHA Reflex Titer and Pattern 05/20/2024 Next Appt Details Follow Up: 1 Year, 6 Months, Reason: Provider Name:Prem carreno Jr, 11/22/2024 09:00:00 AM, [address], [address], [place], [address],
--- OUTSIDE RECORDS SUMMARY | 2024-07-09 11:07 | XMS_ITS ---
Author Organization Paulino Huynh MD Address [address] [place], [place] [id number] Care Team Providers Care Pack Mule Worker Name Role Phone Paulino Huynh Primary Care Provider Allergies Allergen (clinical drug ingredient) Drug/Non Drug Allergy documented on EMR Reaction Allergy Type Onset Date Status nitrofurantoin Macrodantin rash Drug Allergy Active sulfamethoxazole / trimethoprim Bactrim DS rash Drug Allergy Active Results Component Value Reference Range Notes UA ClnCatch+Micro w/rflx Cul t (Not yet reviewed by provider) Interpretation: Performing Lab:[facility], [address] [place] [id number] Notes/Report: Urine, Clean Catch Color Urine Yellow Appearance Urine Clear PH 6.0 5.0-9.0 Glucose Urine UA Negative Negative mg/dL Urine Blood Negative Negative Specific [place] - Urine 1.015 1.005-1.025 Urine Protein Negative [...] 10 mg TAKE 1 TABLET DAILY Active Allopurinol 100 MG 1 tablet Orally Once a day for 30 day(s) Not-Taking Colchicine 0.6 MG 1 tablet Orally twic e a day until gout better and then once a day for 90 days Active Probiotic - 1 capsule Orally lety ry other day Not-Taking Ibuprofen 800 MG 1 tablet with food o r milk Orally Three times a day for 30 day(s) 03/25/2017 Not-Taking CeleBREX 200 MG 1 capsule with food Orally Once a day for 30 day(s) 12/30/2022 Active Omeprazole 20 mg TAKE 1 CAPSULE DAILY Active Nebivolol HCl 5 mg TAKE 1 TABLET TWICE A DAY Active amLODIPine Besylate 5 mg TAKE 1 [...] Problem Status W/U Status Risk Notes Problem [id number] Gout, tophaceous (M1A.9XX1) Active confirmed Vital Signs Blood pressure systolic 112 mm Hg 07/09/19 25 Blood pressure diastolic 60 mm Hg 025 Height 64.25 in 07/09/2024 Weight 138 lbs 07/09/2024 BMI 23.5 kg/m2 07/09/2024 Encounters Encounter Location Date Provider Diagnosis Paulino Huynh MD [address] [place] [address] Drive [address] [place] [phone] 07/09/2024 Paulino Huynh Prediabetes R73.09 ; Essential hypertension I10 and Gout, tophaceous M1A.9XX1 Assessments Encounter Date Diagnosis (ICD Code) Assessment Notes Treatment Notes Treatment Clinical Notes Section Notes 07/09/2024 Prediabetes (ICD-10 - R73.09) doing well 07/09/2024 Essential hypertension (ICD-10 - I10) doing well 07/09/2024 Gout, tophaceous (ICD-10 - M1A.9XX1) Plan Of Treatment Treatment Notes Assessment Notes Prediabetes doing well Essential hypertension doing well Pending Test Test Name Order Date Uric Acid 07/09/2024 Microalbumin, Random 07/09/2024 UA ClnCatch+Micro w/rflx Cult 07/09/2024 Next Appt Details Follow Up: 6 Months, Reason: Provider Name:Paulino dyer, 12/30/2024 07:15:00 AM, [address] [place] [address], [address] [place] [address], [phone], Provider Name:Paulino dyer, 01/06/2025 10:00:00 AM, [address] [place] [address], [address] [place] [address], [phone], Provider Name:Paulino dyer, 07/08/2025 07:15:00 AM, [address] [place] [address], Suite [facility], [place], [place], [phone], Provider Name:Paulino dyer, 07/15/2025 11:00:00 AM, [address] [place] [address], Suite [facility], [place], [place], [phone], Progress Notes * Kellen GILLIS DDOB: [birth year] (73 yo F)Acc No.[id number]:07/09/2024 Progress Notes Patient:?Kellen GILLIS Provider:?Paulino Huynh MD :1950???Age:73 Y???Sex:Female D ate:07/09/2024 Address:[address] [place] [address] [phone] Subjective: * Chief Complaints: * ???1. Annual visit. * HPI: ???Depression Screening:?PHQ-9?Little interest or pleasure in doing things?Not at all,?Feeling down, depressed, or hopeless?Not at all,?Trouble falling or staying asleep, or sleeping too much?Not at all,?Feeling tired or having little energy?Not at all,?Poor appetite or overeating?Not at all,?Feeling bad about yourself or that you are a failure, or have let yourself or your family down?Not at all,?Trouble concentrating on things, such as reading the newspaper or watching television?Not at all,?Moving or speaking so slowly that other people could have noticed; or the opposite, being so fidgety or restless that you have been moving around a lot more than usual?Not at all,?Thoughts that you would be better off or of hurting yourself in some way?Not at all,?Total Score?0.?Communication Needs:?Communication Needs?Does the patient have a hearing impairment?No,?Does the patient have a vision impairment??Yes,?If yes, what is the vision impairment??Glasses,?Does the patient have a cognition impairment??No.?Fall Risk:?History?Have you had any falls with injury in the past year??No,?Have you had two or more falls in the past year??No.?SDOH Questions:?SDOH Questions?In the past year have you been worried about losing housing??No,?In the past year have you or any family members you live with been unable to get any of the following when it was really needed? Check all that apply:?None.? * ROS:?General/Constitutional:?Change in appetite?denies.?Chills?denies.?Fever?denies.?Ophthalmologic:?Blurred vision?denies.?Discharge?denies.?Pain?denies.?ENT:?Decreased hearing?denies.?Sore throat?denies.?Swollen glands?denies.?Endocrine:?Cold intolerance?denies.?Excessive thirst?denies.?Heat intolerance?denies.?Weight loss?denies.?Respiratory:?Cough?denies.?Shortness of breath at rest?denies.?Shortness of breath with exertion?denies.?Wheezing?denies.?Cardiovascular:?Chest pain at rest?denies.?Chest pain with exertion?denies.?Irregular heartbeat?denies.?Shortness of breath?denies.?Gastrointestinal:?Abdominal pain?denies.?Change in bowel habits?denies.?Diarrhea?denies.?Nausea?denies.?Rectal bleeding?denies.?Vomiting?denies .?Genitourinary:?Blood in urine?denies.?Difficulty urinating?denies.?Frequent urination?denies.?Urinary incontinence?Denies.?Musculoskeletal:?Painful joints?denies.?Weakness?denies.?Skin:?Dry skin?denies.?Itching?denies.?Denies?Mole(s),? changes in moles, new moles or any lesions of concern.?Denies?Photosensitivity.?Rash?denies.?Neurologic:?Dizziness?denies.?Fainting?denies.?Headache?denies.? * Medical History:?08/27/13, - P mariela @ [facility] [employer] [employer] [facility] ([phone]), 08/27/13- [facility]oGeo- last done in 2011, Depression screening - 03/11/2014, [facility] appt 04/08; no pap done (last pap 08/27/10); PA said E5 years, Colonoscopy was done in 04/2009 - repeat 10 years; Colonoscopy done 11/03/[address] Pruitt = repeat depends on biopsy, Due iron and ferritin yearly (done 03/2017). * Family History:?Father: dece ased 58 yrs.?Mother: alive 92 yrs.?1 brother(s) , 1 sister(s) . 2 daughter(s) - healthy. .? Father-Cardiac Mother- Healthy 1 brother 68 Cardiac, Denies mental health/substance abuse family history, Denies mental health/substance abuse family history, No pertinent family medical history. * Social History:?Tobacco Use:?Tobacco Use/Smoking?Patient is a?former smoker,?How long has it been since you last smoked??> 10 years,?Additional Findings: Tobacco Non-User?Former smoker, currently using no form of tobacco.?Drugs/Alcohol:?Alcohol Screen?Did you have a drink containing alcohol in the past year??Yes,?How often did you have a drink containing alcohol in the past year??4 or more times a week (4 points),?How many drinks did you have on a typical day when you were drinking in the past year??1 or 2 drinks (0 point),?How often did you have 6 or more drinks on one occasion in the past year??Never (0 point),?Points?4,?Interpretation?Positive.?Miscellaneous:?Caffeine: yes, frequency:, 1-2 cups per day. Children: yes. Exercise: yes, Jazzercise 4 times a week. Home smoke detector use: yes. Living with: spouse. Marital status: . Travel outside of the [place]: no. * Medications:?Taking Allopuri nol 100 MG Tablet 2 tablet Orally Once a day , Taking Timolol Maleate 0.5 % Solution INSTILL 1 DROP IN BOTH EYES EVERY MORNING Ophthalmic , Taking Vagifem 10 MCG Tablet 1 tablet Vaginal Two times a Week , Taking CeleBREX 200 MG Capsule 1 capsule with food Orally Once a day , Taking Nebivolol HCl 5 mg Tablet TAKE 1 TABLET TWICE A DAY , Taking Omeprazole 20 mg Capsule Delayed Release TAKE 1 CAPSULE DAILY , Taking amLODIPine Besylate 5 mg Tablet TAKE 1 TABLET DAILY , Taking Atorvastatin Calcium 10 mg Tablet TAKE 1 TABLET DAILY , Taking Colchicine 0.6 MG Tablet 1 tablet Orally twice a day until gout better and then once a day , Not-Taking/PRN Allopurinol 100 MG Tablet 1 tablet Orally Once a day , Not- Taking/PRN Ibuprofen 800 MG Tablet 1 tablet with food or milk Orally Three times a day , Not-Taking/PRN Probiotic - Capsule 1 capsule Orally every other day , Medication List reviewed and reconciled with the patient * Allergies:?Bactrim DS: rash, Macrodantin: rash. Objective: * Vitals:?Ht: 64.25, Wt: 138, BMI:23.5, BP:112/60, Wt-k.6. * ???Past Orders: ???Lab:Comprehensive Morning Sun. P sofia Fast (Order Date - 06/25/2024) (Collection Date & Time - 06/25/2024 07:45 AM) ? Value Reference Range ?Sodium 145 135-145 - mmo l/L ?Bilirubin Total 0.7 0.0- 1.0 - mg/dL ?Aspartate Amino Transferase 97 H 5-31 - U/L ?Alanine Aminotransferase 88 H 0-31 - U/L ?Total Protein 7.6 6.5-8. 0 - g/dL ?Albumin Level 4.3 3.5-5. 0 - g/dL ?Alkaline Phosphatase 104 39-117 - U/L ?Potassium 4.3 3.3-5.1 - mmol/L ?Chloride 106 96-108 - mm ol/L ?Carbon Dioxide 27 22-29 - mmol/L ?Anion Gap 16 12-20 - ?Blood Urea Nitrogen 24 H 9-16 - mg/dL ?Creatinine 0.96 0.5-1.4 - mg/dL ?Estimated Glomerular Filt Rate 57 - ?Glucose Fasting 104 H 60-9 9 - mg/dL ?Calcium 10.4 H 8.4-10.2 - m g/dL ???Lab:Liver Panel (Order Da te - 06/25/2024) (Collection Date & Time - 06/25/2024 07:45 AM) ? Value Reference Range ?Bilirubin Direct 0.2 0.0 -0.5 - mg/dL ???Lab:Lipid Panel (Order Da te - 06/25/2024) (Collection Date & Time - 06/25/2024 07:45 AM) ? Value Reference Range ?Triglycerides 160 H <150 - mg/dL ?Cholesterol 199 <200 - m g/dL ?LDL Cholesterol Calculated 132 H <100 - mg/dL ?HDL Cholesterol 35 L >40 - mg/dL ???Lab:Hemoglobin A1c (Order Date - 06/25/2024) (Collection Date & Time - 06/25/2024 07:45 AM) ? Value Reference Range ?Hemoglobin A1c % 5.3 <6. 0 - % ?Estimated Average Glucose 105 - mg/dL ???Lab:Complete Blood Count Auto Diff (Order 06/25/2024) (Collection Date & Time - 06/25/2024 07:45 AM) ? Value Reference Range ?White Blood Count 5.3 4. 8-10.8 - X10*3/uL ?Red Blood Count 4.14 L 4.20 -5.50 - X10*6/uL ?Hemoglobin 13.5 12.0-16.0 - g/dl ?Hematocrit 41.5 37.0-47.0 - % ?Mean Corpuscular Volume 100.2 H 80.0-98.0 - fL ?Mean Corpuscular Hemoglobin 32.6 27.0-33.0 - pg ?Mean Corpuscular HGB Conc 32.5 31.0-35.0 - g/dl ?Red Cell Distribution Width 13.8 11.0-16.0 - % ?Platelet Count 195 160-4 00 - X10*3/uL ?Mean Platelet Volume 10.2 9.4-12.3 - fL ?Neutrophils Percent Auto 43.5 L 45-73 - % ?Imm Gran Pct Auto 0.2 0. 0-0.4 - % ?Lymphocytes Percent Auto 42.7 H 20-40 - % ?Monocytes Percent Auto 8.9 2-11 - % ?Eosinophils Percent Auto 3.8 0-4 - % ?Basophils Percent Auto 0.9 0-2 - % ?NRBC Pct Auto 0.0 0.0-0. 2 - /100WBC ?Neutrophils Absolute Auto 2.3 2.0-8.3 - x10*3/uL ?Imm Gran Abs Auto 0.01 0. 00-0.03 - X10*3/uL ?Lymphocytes Absolute Auto 2.3 1.2-4.9 - X10*3/uL ?Monocytes Absolute Auto 0.5 0.1-1.2 - X10*3/uL ?Eosinophils Absolute Auto 0.2 0.0-0.4 - X10*3/uL ?Basophils Absolute Auto 0.1 0.0-0.2 - X10*3/uL ?NRBC Abs Auto 0.000 0.0-0. 012 - X10*3/uL * Examination: ???General Examination: ?GENERAL APPEARANCE:?well developed, well nourished, in no acute distress.?HEAD:?normocephalic, atraumatic.?EYES:?pupils equal, round, reactive to light and accommodation, sclera non-icteric.?EARS:?normal.?ORAL CAVITY:?mucosa moist.?THROAT:?clear.?NECK/THYROID:?neck supple, full range of motion, no cervical lymphadenopathy, no bruits.?SKIN:?warm and dry, no suspicious lesions.?HEART:?regular rate and rhythm, S1, S2 normal, no murmurs.?LUNGS:?clear to auscultation bilaterally.?BREASTS:?not examined done by senior software systems engineer..?ABDOMEN:?soft, nontender, nondistended, bowel sounds present, normal, no organomegaly , no masses palpable.?RECTAL EXAM:?done by senior software systems engineer.?FEMALE GENITOURINARY:?done by senior software systems engineer.?EXTREMITIES:?no clubbing, cyanosis, or edema.?NEUROLOGIC:?nonfocal, motor strength normal upper and lower extremities, sensory exam intact.? Assessment: * Assessment: 1.?Prediabetes - R73.09 (Mindy kellen)???2.?Essential hypertension - I10???3.?Gout, tophaceous - M1A.9XX1??? Plan: * Treatment: 2.?Essential hypertension?LAB: Microalbumin, Random ?LAB: UA ClnCatch+Micro w/rflx Cult (Collection Date & Time - 07/09/2024 09:30 AM) Notes: doing well?? * Follow Up:?6 Months * * The named appointment provid er may or may not be the originator of this progress note, and it is not deemed complete until electronically signed by the appointment provider. Sign off status: Pending * Provider:?Paulino Huynh MD Date:?0 07/09/2024 Generated for Radha goncalves/Khari/Michaelsmitting on:?07/09/2024 11:06 AM [...] way: Not at all Total Score: 0 SDOH Questions SDOH Questions In the past [...] had two or more falls in the year?: No Communication Needs Communication Needs Does the patient have a hearing impairment: No Does the patient have a vision impairmen t?: Yes ?If yes, what is the vision impairment?: Glasses Does the patient have a cognition impair ment?: No Examination Category Sub-Category Detail Notes Category Not es General Examination GENERAL APPEARANCE: well dev eloped, well nourished, in no acute distress HEAD: normocephalic, atrau matic EYES: pupils equal, round, reactive to light and accommodation, sclera non- icteric EARS: normal THROAT: clear NECK/THYROID: neck supple, [...] or edema BREASTS: not examined done by senior software systems engineer. RECTAL EXAM: done by senior software systems engineer FEMALE GENITOURINARY: done by senior software systems engineer ORAL CAVITY: mucosa moist
[2024-07-09 11:27] LABS: Creatinine Urine 67.27 mg/dL; Microalbum/Creatinine Ratio Ur 8.9 ug/mg cr (<30)
== END 2024-07-09 10:16 | disposition home or self-care (01) ==
LOC: HO.LNP 10:15
PROVIDERS: Visit Provider Internal Medicine
DX: I10 Essential (primary) hypertension (principal); R73.09 Other abnormal glucose
CPT/HCPCS: 81001; 82043; 82570; 84550

== ENCOUNTER 2024-12-30 10:46 | Outpatient (REF) | payer MEDICARE, SELFPAY ==
--- OUTSIDE RECORDS SUMMARY | 2024-12-30 11:26 | XMS_ITS | Encounter Summary ---
Author Organization [facility] Address [address] [facility] [address] [place] [address] Phone Care Team Providers Care Programming Internship Name Role Phone Jazmine Fong MATH AND SCIENCE INSTRUCTOR Unavailable [phone] Kimberley Holloway MATH AND SCIENCE INSTRUCTOR Unavailable [phone] Paulino Huynh MD Unavailable [phone] Paulino Huynh MD Primary Care Provider Encounter Details Date Type Department Care Team (Late st Contact Info) Description 06/08/2017 EpicOnHand Encounter [facility] - Virtual Department [address] [place] [address] Guevara Mathew MD [address] [facility], [facility] [address] [place] [address] [email or web address] Social History Tobacco Use Types Packs/Day Years Used Date Smoking Tobacco: Never Assessed Comments Unknown Sex and Gender Information Value Date Recorded Sex Assigned at Not on file Legal Sex Female 10:00 PM EDT Gender Identity Not on file Sexual Orientation Not on file documented as of this encounter Plan of Treatment Not on file documented as of this encounter Visit Diagnoses Not on filedocumented in this encounter Care Teams Programming Internship Relationship Specialty Start Date End Date Paulino Huynh MD [address] [place] [address] [place] [address] PCP - General 05/29/17 Jazmine Fong NP [address] [facility] [address] [place] [address] Historical LMR Provider 03/12/17 2 Kimberley Holloway NP [address] [facility] [place] [phone] Historical LMR Provider 03/12/17 2 Paulino Huynh MD [address] [place] [address] [place] [address] Historical LMR Provider 03/12/17 documented as of this encounter Additional Source Comments The information contained in this document represents components of the legal health record. It is not the complete legal health record.[facility]
--- OUTSIDE RECORDS SUMMARY | 2024-12-30 11:27 | XMS_ITS | Patient Health Record ---
Author Organization [facility] Address [address] [place] [address] Care Team Providers Care Payroll Benefits Clerk Name Role Phone Lino ROMAN, Paulino Primary Care Provider Rolando Pruitt Jr, Prem Unavailable Allergies Allergen (clinical drug ingredient) Drug/Non Drug Allergy documented on EMR Reaction Allergy Type Onset Date Status sulfacetamide Sulfacetamide Sodium Unknown Drug Allergy Active Results Component Value Reference Range Notes Complete Blood Count Auto Di ff Reviewed date:06/04/2024 01:46:28 PM Interpretation: Performing Lab:[facility], [address] [place] [phone] Notes/Report: White Blood Count 6.0 4.8-10.8 X10*3/uL [...] INR Reviewed date:06/04/2024 01:46:33 PM Interpretation: Performing Lab:[address] [phone] Notes/Report: Prothrombin Time 11.4 10.9-12.4 [employer] [...] Panel Reviewed date:06/04/2024 01:46:14 PM Interpretation: Performing Lab:[address] [phone] Notes/Report: Bilirubin Total 0.4 0.0-1.0 mg/dL Bilirubin Direct 0.1 0.0-0.5 mg/dL Aspartate Amino Transferase 91 5-31 U/L Alanine Aminotransferase 111 0-31 U/L Total Protein 7.5 6.5-8.0 g/dL Albumin Level 4.4 3.5-5.0 g/dL Alkaline Phosphatase 113 39-117 U/L IRON PROFILE Reviewed date:06/04/2024 01:46:23 PM Interpretation: Performing Lab:[facility], [address] [place] [phone] Notes/Report: Iron 83 30-160 mcg/dL Total Iron Binding Capacity 255 228-428 mcg/dL Percent Iron Saturation 33 15-50 % Unsaturated Iron Binding 172 Liver Fibrosis Pnl Reviewed date:06/14/2024 12:32:31 PM Interpretation: Performing Lab:[facility], [address] [place] [phone] Notes/Report: Liver Fibrosis Score 0.44 Liver Fibrosis [...] a>0.62 and a<=1.00 : A3 (severe activity) PEK-Eppqz-6-Macroglobulin 239 106-279 mg/dL FIB-Haptoglobin 73 43-212 mg/dL FIB-Apolipoprotein A1 157 101-198 mg/dL FIB-Total Bilirubin 0.4 0.2-1.2 mg/dL FIB-GGT 59 3-65 U/L FIB-ALT 81 6-29 U/L Reference ID [id number] Footnote SEE NOTE The reliability of results [...] The performance characteristics have been determined by [employer] [facility]. It has not been cleared or approved by the U.S. Food and Drug Administration. Performance characteristics refer to the analytical performance of the test. flo.do, the associated logo, [employer] and all associated [employer] are the registered trademarks of [employer]. All third alliance party church - (R) and (TM) - are the property of their respective owners. (C) 8877-0059 [employer]. All rights reserved. THIS TEST WAS PERFORMED AT: [employer] [facility] [place] [address] [place] [address] MIKAELA PADRON MD,PHD,AILEEN LASHA Reflex Titer and Pattern Reviewed date:06/09/2024 08:46:43 AM Interpretation: Performing Lab:[facility], [address] [place] [phone] Notes/Report: Anti Nuclear Antibody Screen POSITIVE NEGATIVE LASHA IFA is a first line screen for detecting the presence of up to approximately 150 autoantibodies in various autoimmune diseases. A positive LASHA IFA result is suggestive of autoimmune disease and reflexes to titer and pattern. Further laboratory testing may be considered if clinically indicated. For additional information, please refer to http://education.[employer]/faq/PFN741 (This link is being provided for informational/ [...] [employer] International Consensus on LASHA Patterns (https://doi.org/10.1515 /lvgn-6660-7130) THIS TEST WAS PERFORMED AT: [facility] [address] [place] [phone] JUAREZ BONILLA MD LASHA Titer 2 TNP LASHA Pattern 2 TNP LASHA Titer 3 TNP LASHA Pattern 3 TNP Mitochondrial Antibody Reviewed date:06/14/2024 12:32:59 PM Interpretation: Performing Lab:[facility], [address] [place] [phone] Notes/Report: Mitochondrial Antibodies NEGATIVE NEGATIVE THIS TEST WAS PERFORMED AT: [facility] [address] [place] [phone] JUAREZ BONILLA MD Mitochondrial Ab Titer TNP Smooth Muscle Antibody Reviewed date:06/14/2024 12:32:49 PM Interpretation: Performing Lab:[facility], [address] [place] [phone] Notes/Report: Smooth Muscle Antibody <20 <20 U [...] type 1. THIS TEST WAS PERFORMED AT: [employer] [address] [place], [place] NATALYA CHAVES MD,PHD US abdomen comp w elastograp hy Reviewed date:06/14/2024 12:31:03 PM Interpretation: Performing Lab: Notes/Report: [address] [address] Ultrasound Report Signed Patient: Steven Gillis MR#: [id number] 56 : 1950 Acct:[id number] Age/Sex: 73 / F ADM Date: 06/10/24 Loc: HO.US Attending Dr: Prem Pruitt MD Ordering Physician: Prem Pruitt MD Date of Service: 06/10/24 Procedure(s): US abdomen comp w elastography Accession Number(s): [id number] cc: Paulino Huynh MD; Prem Pruitt MD [...] by: Steven Gonzalez MD 06/10/2024 09:25 AM [facility] Dictated By: tSeven Gonzalez MD Signed By: <Electronically signed by Steven Gonzalez MD in OV> 06/10/24 0925 DD/ 0839 TD/TT: 06/10/24 0858 Diabetologist: Reason For Referral No Information Medications Medication SIG (Take, Route, Frequency, Duration) Notes Start Date End Date Status Bystolic 5 MG 1 tablet Orally Once a day for 30 day(s) Active Vagifem Active Timolol Maleate PF 0.5 % 1 drop into aff ected eye Ophthalmic Once a day Active Prilosec 20 MG 2 capsule Orally twi ce a day for 10 day(s) Active Allopurinol 100 MG Oral for 90 Active Colchicine 0.6 MG TAKE ONE TABLET BY M OUTH TWICE A DAY UNTIL GOUT IS BETTER AND THEN ONCE A DAY Oral for 90 Active amLODIPine Besylate 5 MG Oral for 90 Active Immunizations Vaccine Route Administration Date Status Comme nts Influenza Unknown 02/23/2019 Administered Influenza Unknown 04/11/2021 Administered Influenza Unknown 03/16/2024 Administered Social History Tobacco Use: Social History Observation [...] Never (0 point) Points 1 Interpretation Negative Problems Problem Type SNOMED Code ICD Code Onset Dates Problem Status W/U Status Risk Notes Problem 300736479 Colon cancer screening (Z12.11) Active confirmed Problem 122318767 Encounter for other preprocedural examination (Z01.818) Active confirmed Problem 044745640 Elevated liver function tests (R79.89) Active confirmed Problem GERD (gastroesophageal reflux disease) (K21.9) Active confirmed Vital Signs Temperature 96.4 degrees Fahrenheit 11/22/2024 Blood pressure diastolic 01 mm Hg 11/22/2024 Height 64.25 in 11/22/2024 Blood pressure systolic 001 mm Hg 11/22/2024 Weight 135.8 lbs 11/22/2024 BMI 23.13 kg/m2 11/22/2024 Encounters Encounter Location Date Provider Diagnosis [facility] [address] [place] [phone] 05/20/2024 Prem Pruitt Jr Elevated liver function tests R79.89 [facility] [address] [place] [phone] 11/22/2024 Prem Pruitt Jr Elevated liver function tests R79.89 ; Colon cancer screening Z12.11 and GERD (gastroesophageal reflux disease) K21.9 [facility] [address] [place] [phone] 06/14/2024 Prem Pruitt Jr Assessments Encounter Date Diagnosis (ICD Code) Assessment Notes Treatment Notes Treatment Clinical Notes Section Notes 05/20/2024 Elevated liver function tests (ICD-10 - R79.89) We discussed a broad differential diagnosis of elevated liver function tests today. Hemachromatosis is unlikely based on her iron saturation and her ferritin is nonspecific. We discussed this as well. It is likely she has some component of fatty liver. We will have repeat laboratory studies including liver fibrosis testing and ultrasound imaging with elastography. Followup will be in 6 months pending these results. We have not recommended undergoing phlebotomy based on her iron saturation. Today's visit was 30 minutes. 11/22/2024 Colon cancer screening (ICD-10 - Z12.11) Currently, Steven is doing well. We reviewed her liver function test elevations today which appear most consistent with fatty liver. Her minimally positive LASHA and pattern are not consistent with autoimmune liver disease and other autoimmune markers are negative. She does not appear to have hemochromatosis based on her previous testing. We reviewed this today. We recommended that no alcohol is better than any, and less is better than more. She will be seen in follow-up in 1 year for repeat evaluation of her liver. She is due for colonoscopy because of her prior history of colon polyps. We discussed risks and benefits of the procedure today. She understands these and agrees to proceed. Gastroesophageal reflux symptoms are under good control on omeprazole, and she will continue this. We discussed diet, lifestyle modifications, and weight management regarding the treatment of reflux. Follow-up in 1 year. 11/22/2024 Elevated liver function tests (ICD-10 - R79.89) Currently, Steven is doing well. We reviewed her liver function test elevations today which appear most consistent with fatty liver. Her minimally positive LASHA and pattern are not consistent with autoimmune liver disease and other autoimmune markers are negative. She does not appear to have hemochromatosis based on her previous testing. We reviewed this today. We recommended that no alcohol is better than any, and less is better than more. She will be seen in follow-up in 1 year for repeat evaluation of her liver. She is due for colonoscopy because of her prior history of colon polyps. We discussed risks and benefits of the procedure today. She understands these and agrees to proceed. Gastroesophageal reflux symptoms are under good control on omeprazole, and she will continue this. We discussed diet, lifestyle modifications, and weight management regarding the treatment of reflux. Follow-up in 1 year. 11/22/2024 GERD (gastroesopha geal reflux disease) (ICD-10 - K21.9) Currently, Steven is doing well. We reviewed her liver function test elevations today which appear most consistent with fatty liver. Her minimally positive LASHA and pattern are not consistent with autoimmune liver disease and other autoimmune markers are negative. She does not appear to have hemochromatosis based on her previous testing. We reviewed this today. We recommended that no alcohol is better than any, and less is better than more. She will be seen in follow-up in 1 year for repeat evaluation of her liver. She is due for colonoscopy because of her prior history of colon polyps. We discussed risks and benefits of the procedure today. She understands these and agrees to proceed. Gastroesophageal reflux symptoms are under good control on omeprazole, and she will continue this. We discussed diet, lifestyle modifications, and weight management regarding the treatment of reflux. Follow-up in 1 year. Plan Of Treatment Pending Test Test Name Order Date LIVER PROFILE 05/20/2024 IRON + IBC (FE) 05/20/2024 FERRITIN 05/20/2024 CBC w/o DIFF 05/20/2024 PROTHROMBIN TIME (PT, INR) 05/20/2024 MITOCHONDRIAL AB 05/20/2024 SMOOTH MUSCLE ANTIBODIES 05/20/2024 US ABDOMEN COMP WITH ELASTOGRAPHY 2023 Liver Fibrosis Pnl 05/20/2024 LASHA Reflex Titer and Pattern 05/20/2024 Future Test Test Name Order Date COLONOSCOPY 07/08/2019 COLONOSCOPY 11/22/2024 Next Appt Details Provider Name:Prem Kamara Jaquan carreno Jr, 03/15/2025 07:30:00 AM, [address] [place] [address] , [place], [place], [phone], Provider Name:Prem Kamara Jaquan carreno Jr, 11/23/2025 09:00:00 AM, [address] [place] [address], [address], [place], [phone], Insurance Providers Payer Name Payer Address Payer Phone Subscriber Number Group Number Insured Name Patient Relationship to Insured Coverage Start Date Coverage End Date [facility] [address] [place], [place] [id number] STEVEN MARVIN Self - patient is the insured Medical (General) History Medical History History ICD Code elevated cholesterol hypertension gastroesophageal reflux disease glaucoma Fatty liver with elevated LFTs Colonoscopy 11/12, tubular adenoma, five- year followup Surgical History Surgery Date(Month/Year) section
--- OUTSIDE RECORDS SUMMARY | 2024-12-30 11:27 | XMS_ITS | Patient Health Record ---
Author Organization Paulino Huynh MD Address [address] [place], [place] [id number] Care Team Providers Care Coat Tailor Name Role Phone Paulino Huynh Primary Care Provider [phone] Allergies Allergen (clinical drug ingredient) Drug/Non Drug Allergy documented on EMR Reaction Allergy Type Onset Date Status nitrofurantoin Macrodantin rash Drug Allergy Active sulfamethoxazole / trimethoprim Bactrim DS rash Drug Allergy Active Results Component Value Reference Range Notes Liver Panel Reviewed date:05/06/2024 08:01:54 AM Interpretation:see back 05-04-2024 Performing Lab:[facility], [address] [place] [phone] Notes/Report: Bilirubin Total 0.6 0.0-1.0 mg/dL Bilirubin Direct 0.2 0.0-0.5 mg/dL Aspartate Amino Transferase 66 5-31 U/L Alanine Aminotransferase 75 0-31 U/L Total Protein 6.8 6.5-8.0 g/dL Albumin Level 4.1 3.5-5.0 g/dL Alkaline Phosphatase 100 39-117 U/L Complete Blood Count Auto Di ff Reviewed date:06/25/2024 12:28:42 PM Interpretation: Performing Lab:[facility], [address] [place] [phone] Notes/Report: White Blood Count 5.3 4.8-10.8 X10*3/uL [...] 0.0-0.2 /100WBC Neutrophils Absolute Auto 2.3 2.0-8.3 x10*3/uL Imm Gran Abs Auto 0.01 0.00-0.03 X10*3/uL Lymphocytes Absolute Auto 2.3 1.2-4.9 X10*3/uL Monocytes Absolute Auto 0.5 0.1-1.2 X10*3/uL Eosinophils Absolute Auto 0.2 0.0-0.4 X10*3/uL Basophils Absolute Auto 0.1 0.0-0.2 X10*3/uL NRBC Abs Auto 0.000 0.0-0.012 X10*3/uL Comprehensive [place]. Panel Fa st Reviewed date:06/25/2024 12:28:25 PM Interpretation: Performing Lab:[facility], [address] [place] [phone] Notes/Report: Sodium 145 135-145 mmol/L Potassium 4.3 [...] Panel Reviewed date:06/25/2024 12:27:53 PM Interpretation: Performing Lab:[address] [phone] Notes/Report: Bilirubin Direct 0.2 0.0-0.5 mg/dL Lipid Panel Reviewed date:06/25/2024 12:27:40 PM Interpretation: Performing Lab:[address] [phone] Notes/Report: Triglycerides 160 <150 mg/dL Desirable Triglyceride: [...] A1c Reviewed date:06/25/2024 12:28:02 PM Interpretation: Performing Lab:[address] [phone] Notes/Report: Hemoglobin A1c % 5.3 <6.0 % [...] average glucose, using the formula of the [id number]-[id number] Average Glucose study (ADAG), Diabetes Care, Vol.31,#8, Dec. 2007 Liver Panel Reviewed date:03/01/2024 04:45:59 PM Interpretation: Performing Lab:[facility], [address] [place] [phone] Notes/Report: Bilirubin Total 0.4 0.0-1.0 mg/dL Bilirubin Direct 0.2 0.0-0.5 mg/dL Aspartate Amino Transferase 49 5-31 U/L Alanine Aminotransferase 68 0-31 U/L Total Protein 7.6 6.5-8.0 g/dL Albumin Level 4.4 3.5-5.0 g/dL Alkaline Phosphatase 90 39-117 U/L IRON PROFILE Reviewed date:03/01/2024 04:44:43 PM Interpretation: Performing Lab:[facility], [address] [place] [phone] Notes/Report: Iron 33 30-160 mcg/dL Total Iron Binding Capacity 242 228-428 mcg/dL Percent Iron Saturation 14 15-50 % Unsaturated Iron Binding 209 Ferritin Reviewed date:03/01/2024 04:45:51 PM Interpretation: Performing Lab:[facility], [address] [place] [phone] Notes/Report: Ferritin 944 10-250 ng/mL Lipid Panel Reviewed date:03/01/2024 04:46:09 PM Interpretation: Performing Lab:[facility], [address] [place] [phone] Notes/Report: Triglycerides 272 <150 mg/dL Desirable Triglyceride: less than 150 mg/dL Borderline High Triglyceride 150-199 mg/dL High Triglyceride: 200-499 mg/dL Very High Triglyceride: greater than or equal to 5OO mg/dL Cholesterol 206 <200 mg/dL Desirable Cholesterol: less than 200 mg/dL Borderline High Cholesterol: 200-239 mg/dL High Cholesterol: greater than 239 mg/dL LDL Cholesterol Calculated 116 <100 mg/dL Desirable LDL: less than 100 mg/dL Near Optimal/Above Optimal LDL: 110-129 mg/dL Borderline High LDL: 130-159 mg/dL High LDL: 160-189 mg/dL Very High LDL: greater than or equal to 190 mg/dL HDL Cholesterol 36 >40 mg/dL Desirable HDL: greater than 40 mg/dL Note: This HDL assay may give artificially low results in patients with liver disease. Uric Acid Reviewed date:07/09/2024 04:58:19 PM Interpretation: Performing Lab:[facility], [address] [place] [phone] Notes/Report: Uric Acid 4.0 2.4-5.7 mg/dL Microalbumin, Random Reviewed date:07/09/2024 12:30:56 PM Interpretation: Performing Lab:[facility], [address] [place] [phone] Notes/Report: Creatinine Urine 67.27 Microalbumin Urine 6.0 Microalbum/Creatinine Ratio Ur 8.9 <30 ug/mg cr Albumin/Creatinine Ratio Reference Ranges: Normal: < 30 ug/mg creatinine Microalbuminuria: 30 - 300 ug/mg creatinine Clinical Albuminuria: > 300 ug/mg creatinine UA ClnCatch+Micro w/rflx Cul t Reviewed date:07/09/2024 12:31:12 PM Interpretation: Performing Lab:[facility], [address] [place] [phone] Notes/Report: Urine, Clean Catch Color Urine Yellow Appearance Urine Clear PH 6.0 5.0-9.0 Glucose Urine UA Negative Negative mg/dL Urine Blood Negative Negative Specific [place] - Urine 1.015 1.005-1.025 Urine Protein Negative Neg-Trace mg/dL Urine Ketones Negative Negative mg/dL Nitrite Urine Negative Negative Leukocyte Esterase Urine Negative Negative RBC Urine 0-2 0-2 /HPF WBC Urine 0-5 0-5 /HPF Squamous Epithelial Cell Urine 0-2 0-2 /HPF Bacteria Urine None Seen None Seen Hyaline Casts Urine 0-2 0-2 /LPF Comprehensive Met. Panel Reviewed date:03/01/2024 02:15:50 PM Interpretation:see back 03-01-24 Performing Lab:[facility], [address] [place] [phone] Notes/Report: Sodium 139 135-145 mmol/L Potassium 4.3 3.3-5.1 mmol/L Chloride 103 96-108 mmol/L Carbon Dioxide 28 22-29 mmol/L Anion Gap 12 12-20 Blood Urea Nitrogen 18 9-16 mg/dL Creatinine 0.88 0.5-1.4 mg/dL Estimated Glomerular Filt Rate > 60 NOTE: For -[place] individuals, multiply the result by 1.210. Chronic Kidney Disease: Estimated GFR < 60 mL/min/1.73m2 Severe Kidney Disease: Estimated GFR < 15 mL/min/1.73m2 Glucose Random 101 60-115 mg/dL Calcium 10.0 8.4-10.2 mg/dL Bilirubin Total 0.8 0.0-1.0 mg/dL Aspartate Amino Transferase 89 5-31 U/L Alanine Aminotransferase 84 0-31 U/L Total Protein 7.2 6.5-8.0 g/dL Albumin Level 4.2 3.5-5.0 g/dL Alkaline Phosphatase 97 39-117 U/L Uric Acid Reviewed date:02/20/2024 01:41:55 PM Interpretation: Performing Lab:[facility], [address] [place] [phone] Notes/Report: Uric Acid 4.3 2.4-5.7 mg/dL MAMMOGRAM DIGITAL BILATERAL SCREEN Reviewed date:04/13/2024 12:36:33 PM Interpretation:Stable Performing Lab: Notes/Report: Stable DNA Analysis Hemochromatosis Reviewed date:03/16/2024 07:53:47 AM Interpretation: Performing Lab:[facility], [address] [place] [phone] Notes/Report: DNA Analysis Hemochromatosis See Below RESULT: POSITIVE FOR 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 This patient is negative for the C282Y pathogenic variant. 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 This result reduces the likelihood of hereditary hemochromatosis (HH). However, it does not rule out the presence of other pathogenic variants within the HFE gene or a diagnosis of HH. The risk of this individual to carry an HFE pathogenic variant other than those tested in this assay depends greatly on family and clinical history as well as ethnicity. This assay does not test for other primary or secondary iron overload disorders. Consider genetic counseling and DNA testing for at-risk family members. Laboratory testing supervised and results monitored by Ricky Tirado Ph.D., CHRISTIAN, SUMANTH, PATY. DETAILED ASSAY INFORMATION: Hereditary hemochromatosis (HH) is an autosomal recessive disorder of iron metabolism that can result in iron overload and potential organ failure. It is one of the most common genetic disorders in individuals of - ancestry, with an estimated carrier frequency of 10%. HH is caused by pathogenic variants in the HFE gene. Most individuals with HH (60-90%) are homozygous for the C282Y pathogenic variant. A smaller percentage of affected individuals are either compound heterozygous for the C282Y and H63D pathogenic variants (3%-8%), or homozygous for the H63D pathogenic variant (approximately 1%). METHODOLOGY: This assay detects two pathogenic variants in the HFE gene, C282Y (NM 860402.2: c.845G>A, p.Myx426Yfp) and H63D (NM 693069.2: c.187C>G, p.Hdz89Wup), that are commonly associated with HH. These variants are detected by multiplex-polymerase chain reaction (PCR) amplification, followed by restriction enzyme digestion and capillary electrophoresis. LIMITATIONS: This assay does not detect other pathogenic variants in the HFE gene that may be associated with HH. Although rare, false positive or false negative results may occur. All results should be interpreted in the context of clinical findings, relevant history, and other laboratory data. Health care providers, please contact your local [facility] genetic counselor or call [phone] ( ) for assistance with the interpretation of these results. This test was developed and its analytical performance characteristics have been determined by [facility]. It has not been cleared or approved by FDA. This assay has been validated pursuant to the CLIA regulations and is used for clinical purposes. For more information, please refer to http://education.[employer].com/faq/[place] mochromatosis. (This link is being provided for informational/educatio nal purposes only.) A portion of the testing was performed at [facility]. Reviewed and signed by Laboratory testing supervised and results monitored by Ricky Tirado, Ph.D., CHRISTIAN, SUMANTH, PATY, Signed on 03/12/2024 at 14:07 THIS TEST WAS PERFORMED AT: [employer] [facility] [address] [place] [address] MIKAELA PADRON MD,PHD,AILEENRachael Baig Reviewed date:03/01/2024 04:46:26 PM Interpretation: Performing Lab:[facility], [address] [place] [phone] Notes/Report: Kym Baig See Note Specimen held untested for 24 hours; Call to request Chemistry testing. US abdomen comp w elastograp hy Reviewed date:06/10/2024 05:19:00 PM Interpretation: Performing Lab: Notes/Report: [facility] [address] [place] [address] Ultrasound Report Signed Patient: Kiersten Winn MR#: [id number] 56 : 1950 Acct:[id number] Age/Sex: 73 / F ADM Date: 06/10/24 Loc: HO.US Attending Dr: Prem Hutchinson MD Ordering Physician: Prem Hutchinson MD Date of Service: 06/10/24 Procedure(s): US abdomen comp w elastography Accession Number(s): [id number] cc: Paulino Huynh MD; Prem Hutchinson MD EXAMINATION: US ABDOMEN COMPLETE WITH LIVER [...] by: Steven Gonzalez MD 06/10/2024 09:25 AM EST Dictated By: Steven Gonzalez MD Signed By: <Electronically signed by Steven Gonzalez MD in [place]> 06/10/24924 DD/ TD/TT: 06/10/24 0858 [address] Sawyer: [place] [id number] Ultrasound Report Signed Patient: Garima Winn MR#: [id number] 56 : 1950 Acct:[id number] Age/Sex: 73 / F ADM Date: 06/10/24 Loc: HO.US Attending Dr: Roldan Hutchinson MD Ordering Physician: Prem Hutchinson MD Date of Service: 06/10/24 Procedure(s): US abdomen comp w elastography Accession Number(s): [id number] cc: Paulino Huynh MD; Prem Hutchinson MD EXAMINATION: US ABDO MEN COMPLETE WITH LIVER ELASTOGRAPHY HISTORY: ELEVATED LI JEROME FUNCTION TESTS TECHNIQUE: Real-time grayscale ultrasound imaging of the abdomen was performed and images were reviewed. COMPARISON: Comparis on is made with the prior examination dated 10/04/2021. FINDINGS: Liver: The liver is normal in size, but demonstrates increased echotexture, consist ent with steatosis. No focal mass or intrahepatic biliary ductal dilatation is identified. There is normal hepatopedal flow in the portal vein. Ultrasound elastogra phy of the liver was performed with 10 separate measurements of the liver parenchyma with the patient in the supine position. Measuremen ts were obtained approximately 2 cm below Pavel's capsule an d perpendicular to the capsule. Images are of satisfactory quality. The median shear wav e velocity is 1.66 m/s. The interquartile range/median (IQR/median) is 0.10. Gallbladder and bili de tree: The gallbladder is unremarkable, without evidence [...] 1.1 x 1.1 cm cyst in the interpol ar region of the left kidney and a 10 mm cyst in the interpolar regio n of the left kidney. The kidneys are otherwise unremarkable, withou t evidence of solid masses, hydronephrosis, or calculi. Pancreas: The pancreatic head, neck, and body are unremarkable. The pancreatic tail is obscured by bowel gas. Spleen: The spleen i s normal in size and contour, measuring 11.3 cm in length. Abdominal aorta and inferior vena cava: The visualized portions of the abdominal aorta and inferior vena cava are normal in caliber. There is no free flu id in the abdomen. US/US abdomen comp w elastography IMPRESSION: Hepatic steatosis. The median shear wav e velocity is 1.66 m/s, corresponding to a median liver stiffness of 8 .60 kPa. The IQR/median value is 0.10. This is indicative of a qual ity data set. Findings are indicat jumana of a low elastography value which rules out advanced chronic radha er disease in asymptomatic patients. REFERENCE: Society of Radiologi sts in Ultrasound Liver Stiffness Thresholds (2020): LIVER [...] hypertension. QUALITY OF DATA SET: *IQR/Median value eq ual or less than 0.15 implies a quality data set. *IQR/Median value ov er 0.15 implies a poor quality data set. SIGNIFICANT CHANGE F ROM PRIOR EXAM: Significant change i f liver stiffness measurement is 10% or greater from prior exam. OTHER CONSIDERATIONS: The stage of liver fibrosis may be overestimated in the setting of acute hepatitis, radha er inflammation, elevated liver function tests, hepatic vascular congestion, obstructive cholestasis, non-fasting state, and infiltrat jumana diseases such as amyloidosis and lymphoma. In some patients with NAFLD, the liver stiffness thresholds for compensated advanced chronic liver disease may be lower. In causes other than viral hepatitis and NAFLD, liver stiffness thresholds are not well established. Electronically jasmin d by: Steven Gonzalez MD 06/10/2024 09:25 AM [facility] Dictated By: Steven Gonzalez MD Signed By: <Electronically signed by Steven Gonzalez MD in [place]> 06/10/24924 DD/ 8 TD/TT: 06/10/24 0858 B[address] Sawyer: Kym Baig (Not yet reviewed by provider) Interpretation: Performing Lab:[facility], [address] [place] [phone] Notes/Report: Kym Baig See Note Specimen held untested for 24 hours; Call to request Chemistry testing. Reason For Referral Reason hemochromatosis Diagnosis 1 Hemochromatosis, uns pecified hemochromatosis type (E83.119) Referral Organization Paulino Huynh MD Referring Provider First Name Paulino Referring Provider Last Name Lino Referring Provider Speciality Internal M edicine Referred Provider Prem Hutchinson Referred Provider Specialty Gastroentero logy General Notes Lilly Miles 03/04/2024 10:46:08 AM EDT > APPT SCHEDULED WITH DR HUTCHINSON, PATIENT IS AWARE OF APPT, Lilly Miles 06/03/2024 08:25:18 AM EST > OFFICE NOTE RECD Referral Priority Routine Referral Appointment Date 05/20/2024 Medications Medication SIG (Take, Route, Frequency, Duration) Notes Start Date End Date Status Colchicine 0.6 MG 1 tablet Orally twic e a day until gout better and then once a day Active Atorvastatin Calcium 10 mg TAKE 1 TABLET DAILY Active Nebivolol HCl 5 mg 1 tablet once a day by mouth once a day for 90 days Active CeleBREX 200 MG 1 capsule with food Orally Once a day for 30 day(s) 12/30/2022 Active amLODIPine Besylate 5 MG TAKE 1 TABLET D AILY for 90 Active Allopurinol 100 MG 2 tablet Orally Once a day for 90 days Active Omeprazole 20 mg TAKE 1 CAPSULE DAILY Active Allopurinol 100 MG 1 tablet [...] EYES EVERY MORNING Ophthalmic for 90 Active Immunizations Vaccine Route Administration Date Status Comme nts Tetanus Unknown 03/19/2010 Administered Flu Vaccine Unknown 06/12/2012 Administered Flu Vaccine IM Intramuscular 02/19/2013 Administered Flu Vaccine IM Intramuscular 03/11/2014 Administered PPSV23 (Pnemovax) IM Intramuscular 03/11/2014 Administered Shingles IM Intramuscular 05/12/2014 Administered TDaP IM Intramuscular 10/06/2014 Administered Fluarix Quadrivalent IM Intramuscular 03/07/2015 Administe red Fluarix Quadrivalent IM Intramuscular 04/12/2016 Administe red Flu Vaccine Unknown 03/08/2017 Administered pt was give n the vaccine at [facility] in [place].High dose was given. Prevnar 13 Unknown 03/19/2017 Administered [facility] Fluarix Quadrivalent Unknown 04/03/2018 Administered Ta rget in [place] Influenza High Dose Unknown 03/05/2019 [facility] PPSV23 (Pnemovax) IM Intramuscular 05/10/2019 Administered Fluarix Quadrivalent Unknown 02/21/2020 [facility]ered [facility] SARS-COV-2 Moderna Unknown 08/02/2020 Administered SARS-COV-2 Moderna Unknown 08/30/2020 Administered Influenza High Dose IM Intramuscular 03/06/2021 Administer ed SARS-COV-2 Moderna Unknown 04/02/2021 Administered Influenza High Dose IM Intramuscular 02/26/2022 Administer ed Influenza High Dose IM Intramuscular 03/11/2023 Administer ed Influenza High Dose IM Intramuscular 02/26/2024 Administer ed Social History Tobacco Use: Social History Observation [...] Problem Status W/U Status Risk Notes Problem 147937155 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) Active confirmed Problem 25817212 Anxiety (F41.9) Active confirmed Problem Hereditary hemochromatosis (30328607) Hereditary hemochromatosis (E83.110) Active confirmed Problem Hypercalcemia (14536956) Hypercalcemia (E83.52) Active confirmed Problem 729146606 Gastroesophageal reflux disease without esophagitis (K21.9) Active confirmed Problem 65449723 Essential hypert ension (I10) Active confirmed Problem 2282560 Prediabetes (R73.09) Active confirmed Problem 433036816 Abnormal LFTs (R79.89) Active confirm ed Problem Glaucoma (77656356) Glaucoma (H40.9) Active confirmed Problem 59951840 Tophaceous gout (M1A.9XX1) Active confirmed Problem 845907364 Pure hypercholesterolemia (E78.00) Active confirmed Problem 079948856 Hemochromatosis, unspecified hemochromatosis type (E83.119) Active confirmed Problem 910255261 Osteopenia of ri ght thigh (M85.851) Active confirmed Problem Acute arthritis (47494742) Acute arthritis (M19.90) Active confirmed Problem 650061553 Vaginal burning (N94.9) Active confirmed Problem 516437990 Gouty arthritis (M10.9) Active confirmed Problem 80549237 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 Problem 268244098247559 Drug-induced gou t of left foot, 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 Problem 07215503 Gout, tophaceous (M1A.9XX1) Active confirmed Vital Signs Blood pressure diastolic 60 mm Hg 07/09/2024 Height 64.25 in 07/09/2024 Blood pressure systolic 112 mm Hg 07/09/2024 Weight 138 lbs 07/09/2024 BMI 23.5 kg/m2 07/09/2024 Encounters Encounter Location Date Provider Diagnosis Paulino Huynh MD [address] [place] [id number] 02/26/2024 Paulino Huynh Encounter for immuni zation Z23 Paulino Huynh MD [address] [place] [id number] 04/27/2024 Paulino Huynh Pure hypercholestero lemia E78.00 ; Prediabetes R73.09 and Elevated LFTs R79.89 Paulino Huynh MD [address] [place] [id number] 06/25/2024 Paulino Huynh Blood tests for rout ine general physical examination Z00.00 ; Essential hypertension I10 ; Prediabetes R73.09 ; Pure hypercholesterolemia E78.00 and Abnormal LFTs R79.89 Paulino Huynh MD [address] [place] [id number] 12/30/2024 Paulino Huynh Pure hypercholestero lemia E78.00 Paulino Huynh MD [address] [place] [id number] 01/06/2024 Paulino Huynh Pure hypercholestero lemia E78.00 ; Abnormal LFTs R79.89 ; Essential hypertension I10 and Prediabetes R73.09 Paulino Huynh MD [address] [place] [id number] 03/01/2024 Paulino Huynh Tophaceous gout M1A. 9XX1 ; Hemochromatosis, unspecified hemochromatosis type E83.119 and Elevated LFTs R79.89 Paulino Huynh MD [address] [place] [id number] 05/04/2024 Paulino Huynh Pure hypercholestero lemia E78.00 ; Elevated LFTs R79.89 and Gouty arthritis M10.9 Paulino Huynh MD [address] [place] [address] Drive [address] [place] [id number] 07/09/2024 Paulino Hyunh Prediabetes R73.09 ; Annual physical exam Z00.00 ; Essential hypertension I10 ; Gout, tophaceous M1A.9XX1 ; Gastroesophageal reflux disease without esophagitis K21.9 ; Pure hypercholesterolemia E78.00 and Depression screening Z13.31 Paulino Huynh MD [address] [place] [address] Drive [address] [place] [id number] 09/06/2024 Paulino Huynh Gout, tophaceous M1A .9XX1 and Essential hypertension I10 Paulino Huynh MD [address] [place] [address] [id number] 09/14/2024 Paulino Huynh Gout, tophaceous M1A .9XX1 and Essential hypertension I10 Paulino Huynh MD [address] [place] [address] Drive [address] [place] [id number] 09/20/2024 Paulino Huynh Assessments Encounter Date Diagnosis (ICD Code) Assessment Notes Treatment Notes Treatment Clinical Notes Section Notes 02/26/2024 Encounter for immunization (ICD-10 - Z23) 04/27/2024 Pure hypercholesterolemia (ICD-10 - E78.00) 04/27/2024 Prediabetes (ICD-10 - R73.09) 06/25/[address] ine general physical examination (ICD-10 - Z00.00) 12/30/2024 Pure hypercholesterolemia (ICD-10 - E78.00) 01/06/2024 Pure hypercholesterolemia (ICD-10 - E78.00) stable, will continue current regiment 01/06/2024 Abnormal LFTs (ICD-1 0 - R79.89) decrease etoh consumption and stop her statin, will cntinue to monitor, pending future labs 03/01/2024 Tophaceous gout (ICD -10 - M1A.9XX1) appt dr hutchinson 03/01/2024 Hemochromatosis, unspecified hemochromatosis type (ICD-10 - E83.119) 05/04/2024 Pure hypercholesterolemia (ICD-10 - E78.00) not high enough to treat 05/04/2024 Elevated LFTs (ICD-1 0 - R79.89) is not caused by alcohol, discused findings of recent LFT's, will contnue to monitor 07/09/2024 Prediabetes (ICD-10 - R73.09) doing well, no need for medication at this time, will continue to monitor 07/09/2024 Annual physical exam (ICD-10 - Z00.00) labs reviewed and discussed with patient 09/06/2024 Gout, tophaceous (ICD-10 - M1A.9XX1) 09/14/2024 Gout, tophaceous (ICD-10 - M1A.9XX1) 04/27/2024 Elevated LFTs (ICD-1 0 - R79.89) 06/25/2024 Essential hypertensi on (ICD-10 - I10) 01/06/2024 Essential hypertensi on (ICD-10 - I10) stable, will continue current regiment 03/01/2024 Elevated LFTs (ICD-1 0 - R79.89) 05/04/2024 Gouty arthritis (ICD -10 - M10.9) is getting better, will continue to monitor 07/09/2024 Essential hypertensi on (ICD-10 - I10) doing well, will continue current regiment 09/06/2024 Essential hypertensi on (ICD-10 - I10) 09/14/2024 Essential hypertensi on (ICD-10 - I10) 06/25/2024 Prediabetes (ICD-10 - R73.09) 01/06/2024 Prediabetes (ICD-10 - R73.09) stable, no need for medication at this time 07/09/2024 Gout, tophaceous (ICD-10 - M1A.9XX1) stable, will continue current regiment 06/25/2024 Pure hypercholesterolemia (ICD-10 - E78.00) 07/09/2024 Gastroesophageal ref lux disease without esophagitis (ICD-10 - K21.9) doing well, will continue current regiment 06/25/2024 Abnormal LFTs (ICD-1 0 - R79.89) 07/09/2024 Pure hypercholesterolemia (ICD-10 - E78.00) stable will continue current regiment 07/09/2024 Depression screening (ICD-10 - Z13.31) negative screen Plan Of Treatment Pending Test Test Name Order Date Electrocardiogram (EKG) 05/14/2019 Electrocardiogram (EKG) 04/12/2016 Electrocardiogram (EKG) 05/07/2018 Liver Panel 12/30/2024 Lipid Panel with Reflex 12/30/2024 Hold Gold 12/30/2024 Next Appt Details Provider Name:Paulino Gant ier, 01/06/2025 10:00:00 AM, [address] [place] [address], [address], [phone], Provider Name:Paulino Gant ier, 07/08/2025 07:15:00 AM, [address] [place] [address], [address], [phone], Provider Name:Paulino Gant ier, 07/15/2025 11:00:00 AM, [address] [place] [address], Suite [facility], [place], [place], [phone], Insurance Providers Payer Name Payer Address Payer Phone Subscriber Number Group Number Insured Name Patient Relationship to Insured Coverage Start Date Coverage End Date [employer] MED[employer]ARE [employer]VANTAGE [address] [place], [place] [id number] GonzálezjoséKiersten harrison Self - patient is the insured MEDICARE [address] [address] [id number] SurjitsurinderKiersten harrison Self - patient is the insured Medical (General) History Medical History History ICD Code 08/27/13, - Patient @ [facility] [employer] ([id number]) 08/27/13- [facility]Geo- last done in 2011 Depression screening - 03/11/2014 [employer] appt 04/08; no pap done (last pap 08/27/10); PA said E5 years Colonoscopy was done in 04/26 009 - repeat 10 years; Colonoscopy done 11/03/[address] Edmond = repeat depends on biopsy Due iron and ferritin yearly (done 04/14 17)
[2024-12-30 11:55] LABS: Alanine Aminotransferase 98 U/L (0-31); Albumin Level 4.3 g/dL (3.5-5.0); Alkaline Phosphatase 107 U/L (39-117); Aspartate Amino Transferase 107 U/L (5-31); Cholesterol 200 mg/dL (<200); HDL Cholesterol 33 mg/dL (>40); Total Protein 6.9 g/dL (6.5-8.0); Triglycerides 130 mg/dL (<150)
[2024-12-30 13:10] LABS: Reflex LDLD? No
== END 2024-12-30 10:47 | disposition home or self-care (01) ==
LOC: HO.LNP 10:46
PROVIDERS: Visit Provider Internal Medicine
DX: E78.00 Pure hypercholesterolemia, unspecified (principal)
CPT/HCPCS: 80061; 80076

== ENCOUNTER 2025-03-15 06:20 | Day surgery (SDC) | payer MEDICARE, SELFPAY ==
--- OUTSIDE RECORDS SUMMARY | 2024-09-14 08:41 | XMS_ITS ---
Author Organization Paulino Huynh MD Address [address] [place] [phone] Care Team Providers Care Golf Teacher Name Role Phone Paulino Huynh Primary Care Provider REASON FOR VISIT RF Allopurinol Amlodipine Medications [...] Location Date Provider Diagnosis Paulino Huynh MD [address] [place] [address] [place] [phone] 09/14/2024 Paulino Huynh Gout, tophaceous M1A.9XX1 and [...] days Next Appt Details Provider Name:Paulino dyer, 04/08/2025 07:45:00 AM, [address] [place] [address], Suite [facility], [place], [place], [phone], Provider Name:Paulino dyer, 07/08/2025 07:15:00 AM, [address], [address], [place], [place], [phone], Provider Name:Paulino dyer, 07/15/2025 11:00:00 AM, [address], [address], [place], [place], [phone], Progress Notes * Kiersten GILLIS DDOB: [birth year] (73 yo F)Acc No.[id number]:09/14/2024 Patient: Kiersten TARANGO :1950 A ge:73 Y S ex:Female Address: [address], [place] [address] * Refills Refill Allopurinol Tablet, 100 MG, Orally, 180 Tablet, 2 tablet, Once a day, 90 days, Refills=3 Refill amLODIPine Besylate Tablet, 5 mg, 90, TAKE 1 TABLET DAILY, once a day, 90 days Refill Nebivolol HCl Tablet, 5 mg, by mouth, 180, TAKE 1 TABLET TWICE A DAY, 90 days, Refills=3 * true * Date: Generated for Radha goncalves/Khari/Rosyitting on: 0 01/27/2025 03:16 PM EDT
--- OUTSIDE RECORDS SUMMARY | 2024-09-20 09:53 | XMS_ITS ---
Author Organization Paulino Huynh MD Address [address] [facility] [address] [place] [phone] Care Team Providers Care Newswriter Name Role Phone Paulino Huynh Primary Care Provider [phone] REASON FOR VISIT RFNebivolol 5mg Medications Medication SIG (Take, Route, Fr equency, Duration) Notes Start Date End Date Status Nebivolol HCl 5 mg 1 tablet once a day by mouth once a day for 90 days Active Encounters Encounter Location Date Provider Diagnosis Paulino Huynh MD [address] [place] [address] [place] [phone] 09/20/2024 Paulino Huynh Plan Of Treatment Medication Medication Name Sig Start Date Stop Date Notes Nebivolol HCl 5 mg 1 tablet once a day by mouth once a day for 90 days Next Appt Details Provider Name:Paulino dyer, 04/08/2025 07:45:00 AM, [address] [place] [address], [address], [phone], Provider Name:Paulino dyer, 07/08/2025 07:15:00 AM, [address] [place] [address], [address], [phone], Provider Name:Paulino dyer, 07/15/2025 11:00:00 AM, [address] [place] [address], [address], [phone], Progress Notes * Kiersten GILLIS DDOB: [birth year] (73 yo F)Acc No.[id number]:09/20/2024 Patient: Kiersten TARANGO :1950 A ge:73 Y S ex:Female Address:[address] [place] [address] , [place] [address] * Refills Refill Nebivolol HCl Tablet, 5 mg, by mouth, 90 Tablet, 1 tablet once a day, once a day, 90 days, Refills=3 * true * Date: Generated for Radha goncalves/Khari/Rosyitting on: 0 01/27/2025 03:16 PM EDT
--- OUTSIDE RECORDS SUMMARY | 2024-12-30 03:15 | XMS_ITS ---
Author Organization Paulino Huynh MD Address [address] [place], [place] [phone] Care Team Providers Care Auto Locator Name Role Phone Paulino Huynh Primary Care Provider Results Component Value Reference Range Notes Liver Panel Reviewed date:12/30/2024 03:24:19 PM Interpretation: Performing Lab:[facility], [address] [place] [phone] Notes/Report: Bilirubin Total 0.9 0.0-1.0 mg/dL Bilirubin Direct 0.3 0.0-0.5 mg/dL Aspartate Amino Transferase 107 5-31 U/L Alanine Aminotransferase 98 0-31 U/L Total Protein 6.9 6.5-8.0 g/dL Albumin Level 4.3 3.5-5.0 g/dL Alkaline Phosphatase 107 39-117 U/L Lipid Panel with Reflex Reviewed date:12/30/2024 08:00:35 PM Interpretation: Performing Lab:[facility], [address] [place] [phone] Notes/Report: Triglycerides 130 <150 mg/dL Desirable Triglyceride: [...] Location Date Provider Diagnosis Paulino Huynh MD [address] [place] [phone] 12/30/2024 Paulino Huynh Pure hypercholestero lemia E78.00 Assessments Encounter Date Diagnosis (ICD Code) Assessment Notes Treatment Notes Treatment Clinical Notes Section Notes 12/30/2024 Pure hypercholesterolemia (ICD-10 - E78.00) Plan Of Treatment Next Appt Details Provider Name:Paulino dyer, 04/08/2025 07:45:00 AM, [address] [place] [address], [address], [phone], Provider Name:Paulino dyer, 07/08/2025 07:15:00 AM, [address] [place] [address], [phone], Provider Name:Paulino dyer, 07/15/2025 11:00:00 AM, [address] [place] [address], [address], [phone], Progress Notes * Kiersten GILLIS DDOB: [birth year] (74 yo F)Acc No.[id number]:12/30/2024 Progress Note Patient: Kiersten TARANGO Provider: Yuki Huynh MD :1950 A ge:74 Y S ex:Female Date:12/30/2024 Address: [address], [facility], [id number] Subjective: * Chief Complaints: * 1 . [...] MD Date: 0 12/30/2024 Generated for Radha goncalves/Khari/Jose on: 0 01/27/2025 03:16 PM EDT
--- OUTSIDE RECORDS SUMMARY | 2025-01-06 06:00 | XMS_ITS ---
Author Organization Paulino Huynh MD Address [address] [place], [place] [phone] Care Team Providers Care Equipment Tech Name Role Phone Paulino Huynh Primary Care [...] Date Provider Diagnosis Paulino Huynh MD [address] [place] [address] [place] [phone] 01/06/2025 Paulino Huynh Abnormal LFTs R79.89 and [...] Gouty arthritis doing great on colch icine Future Test Test Name Order Date Liver Panel 04/08/2025 Lipid Panel 04/08/2025 Next Appt Details Provider Name:Paulino dyer, 04/08/2025 07:45:00 AM, [address] [place] [address], [place] [address], [place], [place], [phone], Provider Name:Paulino dyer, 07/08/2025 07:15:00 AM, [address] [place] [address], [address], [phone], Provider Name:Paulino dyer, 07/15/2025 11:00:00 AM, [address] [place] [address], [address], [phone], Progress Notes * Kiersten GILLIS DDOB: [birth year] (74 yo F)Acc No.[id number]:01/06/2025 Progress Notes Patient: Kiersten TARANGO Provider: Yuki Huynh MD :1950 A ge:74 Y S ex:Female Date:01/06/2025 Address: [address], [id number] Subjective: * Chief Complaints: * 6 month * HPI: S ymptom(s): patient is a 74 yo female here for 6 month follow up visit/ has been doing well. * ROS: G eneral/Constitutional: Denies C hills. D enies F atigue. D enies F ever. D enies H eadache. E NT: Denies S ore throat. R espiratory: Ishmael Contreras ough. D enies S hortness of breath at rest. D enies S hortness of breath with exertion. G astrointestinal: Ishmael Kamara iarrhea. D enies N ausea. * Medical History: * Surgical [...] true * Provider: Yuki Huynh MD Date: 01/06/2025 Generated for Radha goncalves/Khari/eTransmitting on: 01/27/2025 03:16 PM EDT History and Physical Notes * HPI (History [...]
--- OUTSIDE RECORDS SUMMARY | 2025-01-25 05:15 | XMS_ITS ---
Author Organization Paulino Huynh MD Address [address] [facility] [address] [facility] [address] [place] [phone] Care Team Providers Care Dry Cleaner Presser Name Role Phone Paulino Huynh Primary Care Provider REASON FOR VISIT HDF Immunizations Vaccine Route Administration Date Status Comme nts Influenza High Dose IM Intramuscular 01/25/2025 Administer ed Encounters Encounter Location Date Provider Diagnosis Paulino Huynh MD [address] [place] [address] [place] [phone] 01/25/2025 Paulino Huynh Encounter for administration of vaccine Z23 Assessments Encounter Date Diagnosis (ICD Code) Assessment Notes Treatment Notes Treatment Clinical Notes Section Notes 01/25/2025 Encounter for administration of vaccine (ICD-10 - Z23) Plan Of Treatment Next Appt Details Provider Name:Paulino dyer, 04/08/2025 07:45:00 AM, [address] [place] [address], [address], [phone], Provider Name:Paulino dyer, 07/08/2025 07:15:00 AM, [address] [place] [address], [address], [phone], Provider Name:Paulino dyer, 07/15/2025 11:00:00 AM, [address] [place] [address], [address], [phone], Progress Notes * Kiersten GILLIS DDOB: [birth year] (74 yo F)Acc No.[id number]:01/25/2025 Progress Note Patient: Shyanne HDZKAREN Kiersten Kamara Provider: Yuki Huynh MD :1950 A ge:74 Y S ex:Female Date:01/25/2025 Address:[address] [place] [address] , [place], [id number] Subjective: * Chief Complaints: * 1 . [...] MD Date: 0 01/25/2025 Generated for Radha goncalves/Khari/Rosyitting on: 0 01/27/2025 03:15 PM EDT
--- OUTSIDE RECORDS SUMMARY | 2025-01-27 15:15 | XMS_ITS | Encounter Summary ---
Author Organization [facility] Address [address] [place] [address] Phone Care Team Providers Care Suspension Cord Tier Name Role Phone Paulino Huynh MD Unavailable [phone] Paulino Huynh MD Primary Care Provider Encounter Details Date Type Department Care Team (Late st Contact Info) Description 08/05/2023 Procedure Pass [facility] - [address] [place] [address] Social History Tobacco Use Types Packs/Day Years Used Date Smoking Tobacco: Former Smokeless Tobacco: Never Alcohol Use Standard Drinks/Week Comments Yes 0 (1 standard drink = 0.6 oz pur e alcohol) 3-5 weekly Education Answer Date Recorded Are you interested in more education? Not on cayetano e 09/20/2022 Are you concerned about learning? Not on file 09/20/2022 No 09/20/2022 No 09/20/2022 Digital Access Answer Date Recorded No 10/19/2022 No 10/19/2022 Reliable internet access at home? Not on file 10/19/2022 Device with a working camera? Not on file Comments No Sex and Gender Information Value Date Recorded Sex Assigned at Not on file Legal Sex Female 10:00 PM EDT Gender Identity Not on file Sexual Orientation Not on file Occupation Industry Job Start Date Job End Date Working remotely Not on file Not on file Not on file documented as of this encounter Plan of Treatment Not on file documented as of this encounter Visit Diagnoses Not on filedocumented in this encounter Care Teams Suspension Cord Tier Relationship Specialty Start Date End Date Paulino Huynh MD [address] [place] [address] Dr [address] [place] [address] PCP - General 05/29/17 Paulino Huynh MD [address] [place] [address] Dr [place] [address] Historical LMR Provider 03/12/17 documented as of this encounter Additional Source Comments The information contained in this document represents components of the legal health record. It is not the complete legal health record.[facility]
--- OUTSIDE RECORDS SUMMARY | 2025-01-27 15:15 | XMS_ITS | Encounter Summary ---
Author Organization [facility] Address [address] [place] [address] Phone Care Team Providers Care Miner Helper Name Role Phone Jazmine Fong METAL HARDENER Unavailable [phone] Kimberley Holloway METAL HARDENER Unavailable [phone] Paulino Huynh MD Unavailable [phone] Paulino Huynh MD Primary Care Provider Encounter Details Date Type Department Care Team (Late st Contact Info) Description 07/25/2017 Ancillary Orders Virtual Department [address] [place] [address] Paulino Huynh MD [address] [place] [address] [place] [address] Breast screening Social History Tobacco Use Types Packs/Day Years Used Date Smoking Tobacco: Former Smokeless Tobacco: Never Alcohol Use Standard Drinks/Week Comments Yes 0 (1 standard drink = 0.6 oz pur e alcohol) Comments No Sex and Gender Information Value Date Recorded Sex Assigned at Not on file Legal Sex Female 10:00 PM EDT Gender Identity Not on file Sexual Orientation Not on file documented as of this encounter Plan of Treatment Not on file documented as of this encounter Results * BI MAMMOGRAM SCREENING WITH TOMOSYNTHESIS WITH CAD (BILATERAL) (08/07/2017 8:11 AM EDT) Anatomical Region Laterality Modality Breast Left, Breast Right, Breast Bilateral Bila teral Mammography 08/07/2017 12:2 8 PM EDT Impressions 08/07/2017 12:35 PM EDT No mammographic signs of malignancy. Annual screening is recommended. BI-RADS CATEGORY: 1 - Negative. DENSITY: The breast tissue is heterogeneously dense, an appearance which lowers the sensitivity of mammography. POS - CDHMAMA Narrative 08/07/2017 12:35 PM EDT Bilateral mammography is performed in conjunction with computed aided detection. 3-D tomography along with 2-D C view imaging was also performed. Comparison made to previous dated as far back as 03/29/2011 and as recent as 07/10/2016. No suspicious masses, areas of architectural distortion or suspicious microcalcifications. Procedure Note Deandre Worrell MD - 08/07/2017 Bilateral mammography is performed in conjunction with computed aideddetection. 3-D tomography along with 2-D C view imaging was alsoperformed. Comparison made to previous dated as far back as 03/29/2011 andas recent as 07/10/2016. No suspicious masses, areas of architectural distortion or suspiciousmicrocalcifications. IMPRESSION: No mammographic signs of malignancy. Annual screening is recommended. BI-RADS CATEGORY: 1 - Negative. DENSITY: The breast tissue is heterogeneously dense, an appearance whichlowers the sensitivity of mammography. POS - CDHMAMA us Paulino Huynh MD IMG MG EXAMS Final R esult documented in this encounter Visit Diagnoses Diagnosis Breast screening Breast screening, unspecified Breast screening Breast screening, unspecified documented in this encounter Care Teams Miner Helper Relationship Specialty Start Date End Date Paulino Huynh MD [address] [place] [address] Dr RANGEL [facility] [place] [address] PCP - General 05/29/17 Jazmine Fong NP [address] [place] [address] Historical LMR Provider 03/12/17 2 Kimberley Holloway NP [facility] [place] [address] Historical LMR Provider 03/12/17 2 Paulino Huynh MD [address] [place] [address] [facility] [address] Historical LMR Provider 03/12/17 documented as of this encounter Additional Source Comments The information contained in this document represents components of the legal health record. It is not the complete legal health record.[facility]
--- OUTSIDE RECORDS SUMMARY | 2025-01-27 15:15 | XMS_ITS | Encounter Summary ---
Author Organization [facility] Address [address] [place] [address] Phone Care Team Providers Care In Home Aide Name Role Phone Jazmine Fong ANALYST BUSINESS ANALYSIS Unavailable [phone] Kimberley Holloway ANALYST BUSINESS ANALYSIS Unavailable [phone] Paulino Huynh MD Unavailable [phone] Paulino Huynh MD Primary Care Provider Encounter Details Date Type Department Care Team (Late st Contact Info) Description 03/02/2019 Transcribe Orders Virtual Department [address] [place] [address] Paulino Huynh MD [address] [place] [address] [place] [address] Osteopenia of right thigh (Primary Dx) Social History Tobacco Use Types Packs/Day Years [...] documented as of this encounter Results * BD DXA AXIAL (SPINE) WITH HIP (05/10/2019 2:30 PM EST) Anatomical Region Laterality Modality Bone Density Bone Density 05/10/2019 2:50 PM EST Impressions 05/10/2019 2:53 PM EST Osteopenia with interval decrease in bilateral hip bone mineral density since 2017. POS - [id number] Narrative 05/10/2019 2:53 PM EST This is a 68-year-old postmenopausal white female with a documented history of osteopenia. She is not on estrogen replacement therapy and does not take calcium supplements. She denies a family history of osteoporosis or a perceived height loss. Evaluation of the lumbar spine and hips was performed and felt to be technically adequate with comparison made to multiple prior studies, most recently 07/10/2016. Total bone mineral density in the L1-L4 vertebral bodies was calculated at 1.063 gm/cm2 with a T-score of 0.1 and Z-score of 2.1, falling within the WHO classification of normal, without significant interval change from 2017. Total bone mineral density in the right hip was calculated at 0.766 gm/cm2 with a T-score of -1.4 and Z-score of -0.1 falling within the WHO classification of osteopenia, representing an interval decline of 3.6% since 2017. Total bone mineral density in the left hip was calculated at 0.781 gm/cm2 with a T-score of -1.3 and Z-score of zero falling within the WHO classification of osteopenia, representing an interval decline of 5.2% since 2017. Procedure Note Daya Bauer MD - 05/10/2019 This is a 68-year-old postmenopausal white female with a documentedhistory of osteopenia. She is not on estrogen replacement therapy anddoes not take calcium supplements. She denies a family history ofosteoporosis or a perceived height loss. Evaluation of the lumbar spine and hips was performed and felt to betechnically adequate with comparison made to multiple prior studies, mostrecently 07/10/2016. Total bone mineral density in the L1-L4 vertebral bodies was calculated at1.063 gm/cm2 with a T-score of 0.1 and Z-score of 2.1, falling within theWHO classification of normal, without significant interval change [id number]. Total bone mineral density in the right hip was calculated at 0.766 gm/tl8jwwx a T-score of -1.4 and Z-score of -0.1 falling within the WHOclassification of osteopenia, representing an interval decline of 3.6%since 2017. Total bone mineral density in the left hip was calculated at0.781 gm/cm2 with a T-score of -1.3 and Z-score of zero falling withinthe WHO classification of osteopenia, representing an interval decline of5.2% since 2017. IMPRESSION: Osteopenia with interval decrease in bilateral hip bone mineral densitysince 2017. POS - [id number] Paulino Huynh MD IMG BD BONE DENSITY DEX A Final Result documented in this encounter Visit Diagnoses Diagnosis Osteopenia of right thigh- Primary Osteopenia of right thigh documented in this encounter Care Teams In Home Aide Relationship Specialty Start Date End Date Paulino Huynh MD [address] [place] [address] Dr RANGEL [address] [place] [address] PCP - General 05/29/17 Jazmine Fong NP [address] [place] [address] Historical LMR Provider 03/12/17 2 Kimberley Holloway NP [address] [place] [phone] Historical LMR Provider 03/12/17 2 Paulino Huynh MD [address] [place] [address] Dr RANGEL [address] [place] [address] Historical LMR Provider 03/12/17 documented as of this encounter Additional Source Comments The information contained in this document represents components of the legal health record. It is not the complete legal health record.[facility]
--- OUTSIDE RECORDS SUMMARY | 2025-01-27 15:15 | XMS_ITS | Encounter Summary ---
Author Organization [facility] Address [address] [place] [address] Phone Care Team Providers Care Senior Sharepoint Developer Name Role Phone Paulino Huynh MD Unavailable [phone] Paulino Huynh MD Primary Care Provider Encounter Details Date Type Department Care Team (Late st Contact Info) Description 06/20/2021 Procedure Pass [address] [place] [address] Social History Tobacco Use Types Packs/Day Years Used Date Smoking Tobacco: Former Smokeless Tobacco: Never Alcohol Use Standard Drinks/Week Comments Yes 0 (1 standard drink = 0.6 oz pur e alcohol) 3-5 weekly Comments No Sex and Gender Information Value [...] on filedocumented in this encounter Care Teams Senior Sharepoint Developer Relationship Specialty Start Date End Date Paulino Huynh MD [address] [place] [address] [place] [address] PCP - General 05/29/17 Paulino Huynh MD [address] [place] [address] [place] [address] Historical LMR Provider 03/12/17 documented as of this encounter Additional Source Comments The information contained in this document represents components of the legal health record. It is not the complete legal health record.[facility]
--- OUTSIDE RECORDS SUMMARY | 2025-01-27 15:15 | XMS_ITS | Encounter Summary ---
Author Organization [facility] Address [address] [place] [address] Phone Care Team Providers Care Kiln Repairer Name Role Phone Paulino Huynh MD Unavailable [phone] Paulino Huynh MD Primary Care Provider Encounter Details Date Type Department Care Team (Late st Contact Info) Description 08/05/2023 Transcribe Orders Virtual Department 30 [place] [address] Paulino Huynh MD [address] [place] [address] [place] [address] Breast screening (Primary Dx) Social History Tobacco Use Types [...] MAMMOGRAM SCREENING WITH TOMOSYNTHESIS WITH CAD (BILATERAL) (02/24/2024 11:47 AM EDT) Anatomical Region Laterality Modality Breast Left, Breast Right, Breast Bilateral Bila teral Mammography 02/24/2024 3:10 PM EDT Impressions 02/24/2024 3:38 PM EDT No mammographic evidence of malignancy in either breast. Annual screening mammography is recommended. BI-RADS 2 BENIGN The patient will be notified of the results and recommendations. Narrative 02/24/2024 3:38 PM EDT BI MAMMOGRAM SCREENING WITH TOMOSYNTHESIS WITH CAD (BILATERAL) Additional patient information: Screening. COMPARISON: Comparison is made with relevant prior imaging dating back to 2014. Breast composition: The breast tissue is heterogeneously dense which may obscure small masses. FINDINGS: Stable appearance to breast tissue bilaterally accounting for differences in patient positioning. Stable benign calcifications and tissue asymmetries. No abnormal masses, suspicious calcifications, or other significant findings are identified mammographically in either breast. us Rosaura Mckeon MD IMG MG EXAMS Final Resu lt documented in this encounter Visit Diagnoses Diagnosis Breast screening- Primary Breast screening, unspecified Breast screening Breast screening, unspecified documented in this encounter Care Teams Kiln Repairer Relationship Specialty Start Date End Date Paulino Huynh MD [address] [place] [address] [place] [address] PCP - General 05/29/17 Paulino Huynh MD [address] [place] [address] [place] [address] Historical LMR Provider 03/12/17 documented as of this encounter Additional Source Comments The information contained in this document represents components of the legal health record. It is not the complete legal health record.[facility]
--- OUTSIDE RECORDS SUMMARY | 2025-01-27 15:15 | XMS_ITS | Encounter Summary ---
Author Organization [facility] Address [address] [place] [address] Phone Care Team Providers Care Hide Measuring Machine Operator Name Role Phone Jazmine Fong REACH LIFT TRUCK DRIVER Unavailable [phone] Kimberley Holloway REACH LIFT TRUCK DRIVER Unavailable [phone] Paulino Huynh MD Unavailable [phone] Paulino Huynh MD Primary Care Provider Encounter Details Date Type Department Care Team (Late st Contact Info) Description 06/08/2017 [facility] Encounter [facility] - Virtual Department 30 [place] [address] Guevara Mathew MD [address] [facility], [facility] [address] [place] [address] Social History Tobacco Use Types Packs/Day Years [...] on filedocumented in this encounter Care Teams Hide Measuring Machine Operator Relationship Specialty Start Date End Date Paulino Huynh MD [address] [place] [address] [place] [address] PCP - General 05/29/17 Jazmine Fong NP [address] [facility] [address] [place] [address] Historical LMR Provider 03/12/17 2 Kimberley Holloway NP [address] [facility] [place] [address] Historical LMR Provider 03/12/17 2 Paulino Huynh MD [address] [place] [address] [place] [address] Historical LMR Provider 03/12/17 documented as of this encounter Additional Source Comments The information contained in this document represents components of the legal health record. It is not the complete legal health record.[facility]
--- OUTSIDE RECORDS SUMMARY | 2025-01-27 15:15 | XMS_ITS | Encounter Summary ---
Author Organization [facility] Address [address] [place] [address] Phone Care Team Providers Care Associate Property Manager Name Role Phone Paulino Huynh MD Unavailable [phone] Paulino Huynh MD Primary Care Provider Encounter Details Date Type Department Care Team (Late st Contact Info) Description 06/20/2021 Transcribe Orders Virtual Department 30 [place] [address] Paulino Huynh MD [address] [place] [address] [place] [address] Breast screening (Primary Dx) Social History Tobacco [...] MAMMOGRAM SCREENING WITH TOMOSYNTHESIS WITH CAD (BILATERAL) (07/12/2021 9:19 AM EST) Anatomical Region Laterality Modality Breast Left, Breast Right, Breast Bilateral Bila teral Mammography 07/12/2021 9:42 AM EST Impressions 07/12/2021 9:44 AM EST No mammographic evidence of malignancy. Recommend routine annual surveillance. BI-RADS CATEGORY: 2 - Benign finding. DENSITY: The breast tissue is heterogeneously dense, which could obscure a lesion on mammography. Narrative 07/12/2021 9:44 AM EST 70-year-old female with no current breast symptoms. Comparison made to previous on 05/17/2020 and as far back as 07/05/2015. Interpretation made in conjunction with computer-aided detection and tomosynthesis. The breasts are heterogeneously dense, which may obscure small masses. Chronic bilateral nodularity and benign scattered calcifications. There are no suspicious masses, areas of architectural distortion, or suspicious clusters of microcalcifications. Procedure Note Marcelo Che MD - 07/12/2021 70-year-old female with no current breast symptoms. Comparison made toprevious on 05/17/2020 and as far back as 07/05/2015. Interpretation madein conjunction with computer-aided detection and tomosynthesis. The breasts are heterogeneously dense, which may obscure small masses.Chronic bilateral nodularity and benign scattered calcifications. There are no suspicious masses, areas of architectural distortion, orsuspicious clusters of microcalcifications. IMPRESSION: No mammographic evidence of malignancy. Recommend routine annualsurveillance. BI-RADS CATEGORY: 2 - Benign finding. DENSITY: The breast tissue is heterogeneously dense, which could obscurea lesion on mammography. us Paulino Huynh MD IMG MG EXAMS Final R esult documented in this encounter Visit Diagnoses Diagnosis Breast screening- Primary Breast screening, unspecified Breast screening Breast screening, unspecified documented in this encounter Care Teams Associate Property Manager Relationship Specialty Start Date End Date Paulino Huynh MD [address] [place] [address] Dr RANGEL [address] [place] [address] PCP - General 05/29/17 Paulino Huynh MD [address] [place] [address] [place] [address] Historical LMR Provider 03/12/17 documented as of this encounter Additional Source Comments The information contained in this document represents components of the legal health record. It is not the complete legal health record.[facility]
--- OUTSIDE RECORDS SUMMARY | 2025-01-27 15:16 | XMS_ITS | Clinical Summary ---
Author Organization [facility] Address [address] [place] [address] Phone Care Team Providers Care Cable Operator Name Role Phone Paulino Huynh MD Unavailable [phone] Paulino Huynh MD Primary Care Provider Allergies Active Allergy Reactions Criticality Noted Date Comments Nitrofurantoin Macrocrystal Rash Low 06/27/19 23 Other reaction(s): rash Sulfa (Sulfonamide Antibiotics) Rash Low 06/15/2015 Sulfamethoxazole-Trimethopri m Unknown,Rash Low 06/15/2015 Other reaction(s): rash Medications omeprazole (PRILOSEC) 20 mg TbEC Take 1 tablet by mouth daily. Active nebivoloL (BYSTOLIC) 5 MG tablet Take 1 tablet by mouth daily. Active amLODIPine (NORVASC) 5 MG tablet Take 5 mg by mouth daily. Active timolol (TIMOPTIC) 0.25 % ophthalmic solution Place 1 drop into each eye daily. Active celecoxib (CELEBREX) 200 MG capsule 1 capsule with food Orally Once a day for 30 day(s) 3 Active allopurinol (ZYLOPRIM) 100 MG tablet 1 tablet Orally Once a day for 30 day(s) Active colchicine (COLCRYS) 0.6 mg tablet 1 tablet Orally Active estradioL (VAGIFEM) 10 mcg TabIndications: Vulvovaginal dryness Place 1 tablet (10 mcg total) vaginally 2 (two) times a week. 24 tablet 4 4 Active Active Problems Problem Noted Date Diagnosed Date Microscopic hematuria 11/22/2020 Assessment & Plan (11/22/2020 1:06 PM EDT): On UA/sed 10/2020, done after very recent treatment for UTI. Repeat UA shows no blood. I dont have records from PCP, will send this info to PCP as FYI Hyperlipidemia 11/02/2018 HTN (hypertension) 11/02/2018 Right knee pain 11/19/2017 Vulvovaginal dryness 07/24/2017 Immunizations Immunization Administration Dates Next Due COVID-19 (Pre-03/17) Moderna Vaccine, mRNA, PF 0 08/30/2020,08/02/2020 INFLUENZA, SPLIT VIRUS, TRIVALENT PF 04/03/2018, 04/12/2016 Influenza High-Dose Quadrivalent Preservative Fr ee IM 02/14/2020 Influenza High-Dose Trivalent Preservative Free IM 03/05/2019,03/08/2017 Influenza Quadrivalent Preservative Free IM 01/25 Pneumococcal conjugate PCV13 03/19/2017 Pneumococcal polysaccharide PPSV23 05/10/2019 Tdap 04/19/2018 Family History Medical History Relation Comments Atrial fibrillation Brother 2 Heart attack Father Breast cancer Maternal Aunt great aunt Hypothyroidism Mother Relation Status Comments Brother 1 Brother 2 Father Maternal Aunt Mother Alive Sister Alive Social History Tobacco Use Types Packs/Day Years Used Date Smoking Tobacco: Former Smokeless Tobacco: Never Tobacco Cessation:Counseling Given: Not Answered Alcohol Use Standard Drinks/Week Comments Yes 0 [...] file Not on file Not on file Last Filed Vital Signs Vital Sign Reading Time Taken Comments Blood Pressure 122/70 01/30/2024 9:39 AM EDT Pulse 82 10/06/2023 11:01 AM EDT Temperature 35.9 C (96.6 F) 10/06/2023 11:01 AM EDT Respiratory Rate 16 10/06/2023 11:01 AM EDT Oxygen Saturation 98% 10/06/2023 11:01 AM EDT Inhaled Oxygen Concentration - - Weight 62.1 kg (137 lb) 01/30/2024 9:39 AM EDT p t reported Height 162.6 cm (5' 4 ) 01/30/2024 9:39 AM EDT Body Mass Index 23.52 01/30/2024 9:39 AM EDT Plan of Treatment Health Maintenance Due Date Last Done Comments CREATININE LEVEL 1951 LIPID PANEL 1951 DEPRESSION SCREENING 1963 SMOKING Hx and SMOKELESS TOBACCO SCREENING 10/26/1964 HEPATITIS C SCREENING 10/26/1969 COLOGUARD 10/26/1996 COLONOSCOPY 10/26/1996 COLORECTAL CANCER SCREENING 10/26/1996 FIT TEST 10/26/1996 FOBT 10/26/1996 SIGMOIDOSCOPY 10/26/1996 VIRTUAL COLONOSCOPY 10/26/1996 PAP SMEAR 10/30/2018 06/15/2015 BLOOD PRESSURE 07/29/2024 01/30/2024 INFLUENZA VACCINE (#1) 2024 , 02/26/2022, 03/06/2021, Additional history exists COVID-19 VACCINE ( season) 2025 03/11/2022, 04/02/2021, 08/30/2020, Additional history exists MAMMOGRAM 02/23/2026 02/24/2024, 03/, 07/12/2021, Additional history exists RSV VACCINE (1 - 1-dose 75+ series) 10/26/2026 Adult Td,Tdap Booster 04/19/2028 04/19/2018 OSTEOPOROSIS SCREENING INITIAL (ONE-TIME) Completed 05/10/2019 PNEUMOCOCCAL VACCINES (50+ years) Completed 05/10/2019, 03/19/2017 ZOSTER VACCINES Completed 09/28/2021, 07/02/2021 HEPATITIS A VACCINES Aged Out No long er eligible based on patient's age to complete this topic HIB VACCINES Aged Out No longer eligi ble based on patient's age to complete this topic MENINGOCOCCAL VACCINES (ACWY) Aged Out No longer eligible based on patient's age to complete this topic MENINGOCOCCAL VACCINES (B) Aged Out N o longer eligible based on patient's age to complete this topic Medical Devices Not on file Procedures Procedure Name Priority Date/Time Associated Diagnosis Comments BI MAMMOGRAM SCREENING WITH TOMOSYNTHESIS WITH CAD (BILATERAL) Routine 02/24/2024 11:47 AM EDT Breast screening BD DXA AXIAL (SPINE) WITH HIP Routine 05/10/2019 2:30 PM EST Osteopenia of right thigh from Last 3 Months or Most Recently Relevant to Health Maintenance Results * BI MAMMOGRAM SCREENING WITH TOMOSYNTHESIS [...] with relevant prior imaging dating back to 2015. Breast composition: The breast tissue is heterogeneously dense which may obscure small masses. FINDINGS: Stable appearance to breast tissue bilaterally accounting for differences in patient positioning. Stable benign calcifications and tissue asymmetries. No abnormal masses, suspicious calcifications, or other significant findings are identified mammographically in either breast. us Rosaura Mckeon MD IMG MG EXAMS Final Resu lt * BD DXA AXIAL (SPINE) WITH HIP [...] classification of normal, without significant interval change [id number]. Total bone mineral density in the right hip was calculated at 0.766 gm/jl5nbsg a T-score of -1.4 and Z-score of [...] BD BONE DENSITY DEX A Final Result from Last 3 Months or Most Recently Relevant to Health Maintenance Insurance ([place]) 3 MARVEL MCCRAYRENATA MOSER [id number] [facility] MEDICARE REPLACEMENT [facility] MEDICARE REPLACEMENT AETNA O MEDICARE REPLACEMENT AETNA O MEDICARE REPLACEMENT AETNA O MEDICARE REPLACEMENT AETNA O MEDICARE REPLACEMENT AETNA [facility] MEDICARE REPLACEMENT AETNA [facility] MEDICARE REPLACEMENT AETNA PPO MEDICARE REPLACEMENT Care Teams Cable Operator Relationship Specialty Start Date End Date Paulino Huynh MD [address] [place] [address] [place] [address] PCP - General 05/29/17 Paulino Huynh MD [address] [place] [address] [place] [address] Historical LMR Provider 03/12/17 Additional Source Comments The information contained in this document represents components of the legal health record. It is not the complete legal health record.[facility]
--- OUTSIDE RECORDS SUMMARY | 2025-01-27 15:16 | XMS_ITS | Encounter Summary ---
Author Organization [facility] Address [address] [place] [address] Phone Care Team Providers Care Senior Mobile Application Developer Name Role Phone Jazmine Fong LINUX SYSTEMS ANALYST Unavailable [phone] Kimberley Holloway LINUX SYSTEMS ANALYST Unavailable [phone] Paulino Huynh MD Unavailable [phone] Paulino Huynh MD Primary Care Provider Encounter Details Date Type Department Care Team (Late st Contact Info) Description 04/11/2020 Ancillary Orders Virtual Department 30 [place] [address] Paulino Huynh MD [address] [place] [address] [place] [address] Breast screening Social History Tobacco Use Types [...] MAMMOGRAM SCREENING WITH TOMOSYNTHESIS WITH CAD (BILATERAL) (05/17/2020 8:39 AM EST) Anatomical Region Laterality Modality Breast Left, Breast Right, Breast Bilateral Bila teral Mammography 05/17/2020 9:13 AM EST Impressions 05/17/2020 9:15 AM EST No mammographic evidence of malignancy. Recommend routine annual surveillance. BI-RADS CATEGORY: 2 - Benign finding. DENSITY: The breast tissue is heterogeneously dense, which could obscure a lesion on mammography. Narrative 05/17/2020 9:15 AM EST 69-year-old female with no current breast symptoms. Comparison made to previous on 11/06/2018 and as far back as 06/08/2014. Interpretation made in conjunction with computer-aided detection and tomosynthesis. The breasts are heterogeneously dense, which may obscure small masses. Chronic bilateral nodularity and coarse calcifications. There are no suspicious masses, areas of architectural distortion, or suspicious clusters of microcalcifications. Procedure Note Marcelo Che MD - 05/17/2020 69-year-old female with no current breast symptoms. Comparison made toprevious on 11/06/2018 and as far back as 06/08/2014. Interpretation madein conjunction with computer-aided detection and tomosynthesis. The breasts are heterogeneously dense, which may obscure small masses.Chronic bilateral nodularity and coarse calcifications. There are no suspicious masses, areas [...] unspecified documented in this encounter Care Teams Senior Mobile Application Developer Relationship Specialty Start Date End Date Paulino Huynh MD [address] [place] [address] Dr RANGEL [address] [place] [address] PCP - General 05/29/17 Jazmine Fong NP [address] [place] [phone] (Work) Historical LMR Provider 03/12/17 2 Kimberley Holloway NP [address] [facility] [address] [place] [address] Historical LMR Provider 03/12/17 2 Paulino Huynh MD [address] [place] [address] [place] [address] Historical LMR Provider 03/12/17 documented as of this encounter Additional Source Comments The information contained in this document represents components of the legal health record. It is not the complete legal health record.[facility]
--- OUTSIDE RECORDS SUMMARY | 2025-01-27 15:16 | XMS_ITS | Encounter Summary ---
Author Organization [facility] Address [address] [place] [address] Phone Care Team Providers Care Hydrotel Operator Name Role Phone Jazmine Fong LCSW Unavailable [phone] Kimberley Holloway LCSW Unavailable [phone] Paulino Huynh MD Unavailable [phone] Paulino Huynh MD Primary Care Provider Encounter Details Date Type Department Care Team (Late st Contact Info) Description 04/11/2020 Procedure Pass [facility] - [address] [place] [address] Social History Tobacco Use Types Packs/Day Years [...] on filedocumented in this encounter Care Teams Hydrotel Operator Relationship Specialty Start Date End Date Paulino Huynh MD [address] [place] [address] [place] [address] PCP - General 05/29/17 Jazmine Fong NP [address] [place] [address] Historical LMR Provider 03/12/17 2 Kimberley Holloway NP [address] [place] [phone] Historical LMR Provider 03/12/17 2 Paulino Huynh MD [address] [place] [address] Dr RANGEL [address] [place] [address] Historical LMR Provider 03/12/17 documented as of this encounter Additional Source Comments The information contained in this document represents components of the legal health record. It is not the complete legal health record.[facility]
--- OUTSIDE RECORDS SUMMARY | 2025-01-27 15:16 | XMS_ITS | Patient Health Record ---
Author Organization [facility] Address [address] [place] [address] Care Team Providers Care Pediatric Surgeon Name Role Phone Lino ROMAN, Paulino Primary Care Provider Rolando Pruitt Jr, Prem Unavailable Allergies Allergen (clinical drug ingredient) Drug/Non Drug Allergy documented on EMR Reaction Allergy Type Onset Date Status sulfacetamide Sulfacetamide Sodium Unknown Drug Allergy Active Results Component Value Reference Range Notes Complete Blood Count Auto Di ff Reviewed date:06/04/2024 01:46:28 PM Interpretation: Performing Lab:[facility], [address] [place] [phone] Notes/Report: White Blood Count 6.0 4.8-10.8 X10*3/uL [...] INR Reviewed date:06/04/2024 01:46:33 PM Interpretation: Performing Lab:[address] [phone] Notes/Report: Prothrombin Time 11.4 10.9-12.4 SEC [employer]NATIONAL [...] Panel Reviewed date:06/04/2024 01:46:14 PM Interpretation: Performing Lab:[address] [phone] Notes/Report: Bilirubin Total 0.4 0.0-1.0 mg/dL Bilirubin Direct 0.1 0.0-0.5 mg/dL Aspartate Amino Transferase 91 5-31 U/L Alanine Aminotransferase 111 0-31 U/L Total Protein 7.5 6.5-8.0 g/dL Albumin Level 4.4 3.5-5.0 g/dL Alkaline Phosphatase 113 39-117 U/L IRON PROFILE Reviewed date:06/04/2024 01:46:23 PM Interpretation: Performing Lab:[facility], [address] [place] [phone] Notes/Report: Iron 83 30-160 mcg/dL Total Iron Binding Capacity 255 228-428 mcg/dL Percent Iron Saturation 33 15-50 % Unsaturated Iron Binding 172 Liver Fibrosis Pnl Reviewed date:06/14/2024 12:32:31 PM Interpretation: Performing Lab:[facility], [address] [place] [phone] Notes/Report: Liver Fibrosis Score 0.44 Liver Fibrosis [...] a>0.62 and a<=1.00 : A3 (severe activity) IVI-Acnto-0-Macroglobulin 239 106-279 mg/dL FIB-Haptoglobin 73 43-212 mg/dL FIB-Apolipoprotein A1 157 101-198 mg/dL FIB-Total Bilirubin 0.4 0.2-1.2 mg/dL FIB-GGT 59 3-65 U/L FIB-ALT 81 6-29 U/L Reference ID [id number] Footnote SEE NOTE The reliability of results [...] The performance characteristics have been determined by [facility]. It has not been cleared or approved by the U.S. Food and Drug Administration. Performance characteristics refer to the analytical performance of the test. [employer], the associated logo, [employer] and all associated [employer] are the registered trademarks of [employer]. All third republican church - (R) and (TM) - are the property of their respective owners. (C) 6635-6864 [employer]. All rights reserved. THIS TEST WAS PERFORMED AT: [facility] [facility] [address] [place] [address] MIKAELA PADRON MD,PHD,AILEEN LASHA Reflex Titer and Pattern Reviewed date:06/09/2024 08:46:43 AM Interpretation: Performing Lab:[facility], [address] [place] [phone] Notes/Report: Anti Nuclear Antibody Screen POSITIVE NEGATIVE LASHA IFA is a first line screen for detecting the presence of up to approximately 150 autoantibodies in various autoimmune diseases. A positive LASHA IFA result is suggestive of autoimmune disease and reflexes to titer and pattern. Further laboratory testing may be considered if clinically indicated. For additional information, please refer to http://education.Happlink/faq/IQL114 (This link is being provided for informational/ [...] [employer] International Consensus on LASHA Patterns (https://doi.org/10.1515 /vlnk-0315-8858) THIS TEST WAS PERFORMED AT: [facility] [address] [place] [phone] JUAREZ BONILLA MD LASHA Titer 2 TNP LASHA Pattern 2 TNP LASHA Titer 3 TNP LASHA Pattern 3 TNP Mitochondrial Antibody Reviewed date:06/14/2024 12:32:59 PM Interpretation: Performing Lab:[facility], [address] [place] [phone] Notes/Report: Mitochondrial Antibodies NEGATIVE NEGATIVE THIS TEST WAS PERFORMED AT: [facility] [address] [place] [phone] JUAREZ BONILLA MD Mitochondrial Ab Titer TNP Smooth Muscle Antibody Reviewed date:06/14/2024 12:32:49 PM Interpretation: Performing Lab:[facility], [address] [place] [phone] Notes/Report: Smooth Muscle Antibody <20 <20 U [...] type 1. THIS TEST WAS PERFORMED AT: [employer] [address] [place], [place] NATALYA CHAVES MD,PHD US abdomen comp w elastograp hy Reviewed date:06/14/2024 12:31:03 PM Interpretation: Performing Lab: Notes/Report: [address] [address] Ultrasound Report Signed Patient: Steven Gillis MR#: [id number] [birth year] : 1950 Acct:[id number] Age/Sex: 73 / F ADM Date: 06/10/24 Loc: HO.US Attending Dr: Prem Pruitt MD Ordering Physician: Prem Pruitt MD Date of Service: 06/10/24 Procedure(s): US abdomen comp w elastography Accession Number(s): [id number] cc: Paulino Huynh MD; Prem Pruitt MD [...] by: Steven Gonzalez MD 06/10/2024 09:25 AM [facility] Dictated By: Steven Gonzalez MD Signed By: <Electronically signed by Steven Gonzalez MD in OV> 06/10/24 0925 DD/ 0839 TD/TT: 06/10/24 0858 Trailer Park Manager: Reason For Referral No Information Medications Medication [...] Problem Status W/U Status Risk Notes Problem 740897759 Colon cancer screening (Z12.11) Active confirmed Problem 201624755 Encounter for other preprocedural examination (Z01.818) Active confirmed Problem 307732395 Elevated liver function tests (R79.89) Active confirmed Problem Gastroesophageal reflux disease (512792495) GERD (gastroesophagea l reflux disease) (K21.9) Active confirmed Vital Signs Temperature 96.4 degrees Fahrenheit 11/22/2024 Blood pressure diastolic 01 mm Hg 11/22/2024 Height 64.25 in 11/22/2024 Blood pressure systolic 001 mm Hg 11/22/2024 Weight 135.8 lbs 11/22/2024 BMI 23.13 kg/m2 11/22/2024 Encounters Encounter Location Date Provider Diagnosis [facility] [address] [place] [address] 05/20/2024 Prem Pruitt Jr Elevated liver function tests R79.89 [facility] [address] [place] [address] 11/22/2024 Prem Pruitt Jr Elevated liver function tests R79.89 ; Colon cancer screening Z12.11 and GERD (gastroesophageal reflux disease) K21.9 [facility] [address] [place] [phone] 06/14/2024 Prem Pruitt Jr Assessments Encounter Date [...] COLONOSCOPY 11/22/2024 Next Appt Details Provider Name:Prem carreno Jr, 03/15/2025 07:30:00 AM, [address] [place] [address], [phone], Provider Name:Prem carreno Jr, 11/23/2025 09:00:00 AM, [address] [place] [address], [address], [place], [address], Insurance Providers Payer Name Payer Address Payer Phone Subscriber Number Group Number Insured Name Patient Relationship to Insured Coverage Start Date Coverage End Date [facility] [address] [place], [place] [id number] STEVEN MARVIN Self - patient is the insured Medical (General) History Medical History History ICD Code elevated cholesterol hypertension gastroesophageal reflux disease glaucoma Fatty liver with elevated LFTs Colonoscopy 11/12, tubular adenoma, five- year followup Surgical History Surgery Date(Month/Year) section
--- OUTSIDE RECORDS SUMMARY | 2025-01-27 15:16 | XMS_ITS | Patient Health Record ---
Author Organization Paulino Huynh MD Address [address] [place], [place] [id number] Care Team Providers Care Byproducts Operator Name Role Phone Paulino Huynh Primary Care Provider Allergies Allergen (clinical drug ingredient) Drug/Non Drug Allergy documented on EMR Reaction Allergy Type Onset Date Status nitrofurantoin Macrodantin rash Drug Allergy Active sulfamethoxazole / trimethoprim Bactrim DS rash Drug Allergy Active Results Component Value Reference Range Notes Liver Panel Reviewed date:05/06/2024 08:01:54 AM Interpretation:see back 05-04-2024 Performing Lab:[facility], [address] [place] [phone] Notes/Report: Bilirubin Total 0.6 0.0-1.0 mg/dL Bilirubin Direct 0.2 0.0-0.5 mg/dL Aspartate Amino Transferase 66 5-31 U/L Alanine Aminotransferase 75 0-31 U/L Total Protein 6.8 6.5-8.0 g/dL Albumin Level 4.1 3.5-5.0 g/dL Alkaline Phosphatase 100 39-117 U/L Complete Blood Count Auto Di ff Reviewed date:06/25/2024 12:28:42 PM Interpretation: Performing Lab:[facility], [address] [place] [phone] Notes/Report: White Blood Count 5.3 4.8-10.8 X10*3/uL [...] NRBC Abs Auto 0.000 0.0-0.012 X10*3/uL Comprehensive [place]. Panel Fa st Reviewed date:06/25/2024 12:28:25 PM Interpretation: Performing Lab:[facility], [address] [place] [phone] Notes/Report: Sodium 145 135-145 mmol/L Potassium 4.3 [...] Panel Reviewed date:06/25/2024 12:27:53 PM Interpretation: Performing Lab:[address] [phone] Notes/Report: Bilirubin Direct 0.2 0.0-0.5 mg/dL Lipid Panel Reviewed date:06/25/2024 12:27:40 PM Interpretation: Performing Lab:[address] [phone] Notes/Report: Triglycerides 160 <150 mg/dL Desirable Triglyceride: [...] A1c Reviewed date:06/25/2024 12:28:02 PM Interpretation: Performing Lab:[address] [phone] Notes/Report: Hemoglobin A1c % 5.3 <6.0 % [...] average glucose, using the formula of the V8A-Bgxzazj Average Glucose study (ADAG), Diabetes Care, Vol.31,#8, Dec. 2007 Liver Panel Reviewed date:12/30/2024 03:24:19 PM Interpretation: Performing Lab:[facility], [address] [place] [phone] Notes/Report: Bilirubin Total 0.9 0.0-1.0 mg/dL Bilirubin Direct 0.3 0.0-0.5 mg/dL Aspartate Amino Transferase 107 5-31 U/L Alanine Aminotransferase 98 0-31 U/L Total Protein 6.9 6.5-8.0 g/dL Albumin Level 4.3 3.5-5.0 g/dL Alkaline Phosphatase 107 39-117 U/L Lipid Panel with Reflex Reviewed date:12/30/2024 08:00:35 PM Interpretation: Performing Lab:[facility], [address] [place] [phone] Notes/Report: Triglycerides 130 <150 mg/dL Desirable Triglyceride: [...] low results in patients with liver disease. Liver Panel Reviewed date:03/01/2024 04:45:59 PM Interpretation: Performing Lab:[facility], [address] [place] [phone] Notes/Report: Bilirubin Total 0.4 0.0-1.0 mg/dL Bilirubin Direct 0.2 0.0-0.5 mg/dL Aspartate Amino Transferase 49 5-31 U/L Alanine Aminotransferase 68 0-31 U/L Total Protein 7.6 6.5-8.0 g/dL Albumin Level 4.4 3.5-5.0 g/dL Alkaline Phosphatase 90 39-117 U/L IRON PROFILE Reviewed date:03/01/2024 04:44:43 PM Interpretation: Performing Lab:[facility], [address] [place] [phone] Notes/Report: Iron 33 30-160 mcg/dL Total Iron Binding Capacity 242 228-428 mcg/dL Percent Iron Saturation 14 15-50 % Unsaturated Iron Binding 209 Ferritin Reviewed date:03/01/2024 04:45:51 PM Interpretation: Performing Lab:[facility], [address] [place] [phone] Notes/Report: Ferritin 944 10-250 ng/mL Lipid Panel Reviewed date:03/01/2024 04:46:09 PM Interpretation: Performing Lab:[facility], [address] [place] [phone] Notes/Report: Triglycerides 272 <150 mg/dL Desirable Triglyceride: [...] Acid Reviewed date:07/09/2024 04:58:19 PM Interpretation: Performing Lab:[facility], [address] [place] [phone] Notes/Report: Uric Acid 4.0 2.4-5.7 mg/dL Microalbumin, Random Reviewed date:07/09/2024 12:30:56 PM Interpretation: Performing Lab:[facility], [address] [place] [phone] Notes/Report: Creatinine Urine 67.27 Microalbumin Urine 6.0 Microalbum/Creatinine Ratio Ur 8.9 <30 ug/mg cr Albumin/Creatinine Ratio Reference Ranges: Normal: < 30 ug/mg creatinine Microalbuminuria: 30 - 300 ug/mg creatinine Clinical Albuminuria: > 300 ug/mg creatinine UA ClnCatch+Micro w/rflx Cul t Reviewed date:07/09/2024 12:31:12 PM Interpretation: Performing Lab:[facility], [address] [place] [phone] Notes/Report: Urine, Clean Catch Color Urine Yellow Appearance Urine Clear PH 6.0 5.0-9.0 Glucose Urine UA Negative Negative mg/dL Urine Blood Negative Negative Specific [place] - Urine 1.015 1.005-1.025 Urine Protein Negative Neg-Trace mg/dL Urine Ketones Negative Negative mg/dL Nitrite Urine Negative Negative Leukocyte Esterase Urine Negative Negative RBC Urine 0-2 0-2 /HPF WBC Urine 0-5 0-5 /HPF Squamous Epithelial Cell Urine 0-2 0-2 /HPF Bacteria Urine None Seen None Seen Hyaline Casts Urine 0-2 0-2 /LPF Comprehensive Met. Panel Reviewed date:03/01/2024 02:15:50 PM Interpretation:see back 03-01-24 Performing Lab:[facility], [address] [place] [phone] Notes/Report: Sodium 139 135-145 mmol/L Potassium 4.3 3.3-5.1 mmol/L Chloride 103 96-108 mmol/L Carbon Dioxide 28 22-29 mmol/L Anion Gap 12 12-20 Blood Urea Nitrogen 18 9-16 mg/dL Creatinine 0.88 0.5-1.4 mg/dL Estimated Glomerular Filt Rate > 60 NOTE: For -Emirati individuals, multiply the result by 1.210. Chronic [...] Acid Reviewed date:02/20/2024 01:41:55 PM Interpretation: Performing Lab:[facility], [address] [place] [phone] Notes/Report: Uric Acid 4.3 2.4-5.7 mg/dL MAMMOGRAM DIGITAL BILATERAL SCREEN Reviewed date:04/13/2024 12:36:33 PM Interpretation:Stable Performing Lab: Notes/Report: Stable DNA Analysis Hemochromatosis Reviewed date:03/16/2024 07:53:47 AM Interpretation: Performing Lab:[facility], [address] [place] [phone] Notes/Report: DNA Analysis Hemochromatosis See Below RESULT: [...] and results monitored by Ricky Tirado, Ph.D., FAC, [facility], [facility]. DETAILED ASSAY INFORMATION: Hereditary hemochromatosis (HH) is [...] variants in the HFE gene, C282Y (NM 425817.2: c.845G>A, p.Hpb140Rqq) and H63D (NM 411203.2: c.187C>G, p.Vbe33Hua), that are commonly associated with HH. These [...] Health care providers, please contact your local [employer] genetic counselor or call [phone] ( ) for assistance with the interpretation of these results. This test was developed and its analytical performance characteristics have been determined by [facility]. It has not been cleared or approved by FDA. This assay has been validated pursuant to the CLIA regulations and is used for clinical purposes. For more information, please refer to http://education.[employer].com/faq/he mochromatosis. (This link is being provided for informational/educatio nal purposes only.) A portion of the testing was performed at [facility]. Reviewed and signed by Laboratory testing supervised and results monitored by Ricky Tirado, Ph.D., FACMG, HCLD, CGMB, Signed on 03/12/2024 at 14:07 THIS TEST WAS PERFORMED AT: [employer] [facility] [address] [place] [address] MIKAELA PADRON MD,PHD,AILEEN Kym Baig Reviewed date:03/01/2024 04:46:26 PM Interpretation: Performing Lab:[facility], [address] [place] [phone] Notes/Report: Kym Baig See Note Specimen held untested for 24 hours; Call to request Chemistry testing. US abdomen comp w elastograp hy Reviewed date:06/10/2024 05:19:00 PM Interpretation: Performing Lab: Notes/Report: [address] [address] Ultrasound Report Signed Patient: Kiersten Winn MR#: [id number] 56 : 1950 Acct:[id number] Age/Sex: 73 / F ADM Date: 06/10/24 Loc: HO.US Attending Dr: Prem Hutchinson MD Ordering Physician: Prem Hutchinson MD Date of Service: 06/10/24 Procedure(s): US abdomen comp w elastography Accession Number(s): [id number] cc: Paulino Huynh MD; Prem Hutchinson MD [...] of Radiologists in Ultrasound Liver Stiffness Thresholds (2019): LIVER STIFFNESS THRESHOLDS: *Shear wave velocity less [...] Gonzalez MD in OV> 06/10/[address] DD/ TD/TT: 06/10/2458 Primary Therapist: [place] [address] Ultrasound Report Signed Patient: Garima Winn MR#: [id number] 56 : 1950 Acct:[id number] Age/Sex: 73 / F ADM Date: 06/10/24 Loc: HO.US Attending Dr: Roldan Hutchinson MD Ordering Physician: Prem Hutchinson MD Date of Service: 06/10/24 Procedure(s): US abdomen comp w elastography Accession Number(s): [id number] cc: Paulino Huynh MD; Prem Hutchinson MD [...] Steven Gonzalez MD 06/10/2024 09:25 AM EST RP Dictated By: Steven Gonzalez MD Signed By: <Electronically signed by Steven Gonzalez MD in OV> 06/10/24924 DD/ TD/TT: 06/10/24 0858 Primary Therapist: Kym Baig Reviewed date:12/30/2024 03:23:40 PM Interpretation: Performing Lab:[facility], [address] [place] [phone] Notes/Report: Kym Baig See Note Specimen held [...] WITH DR HUTCHINSON, PATIENT IS AWARE OF APPTJd Patti A 06/03/2024 08:25:18 AM EST > OFFICE NOTE [...] Once a day for 30 day(s) Not-Taking Allopurinol 100 MG 2 tablet Orally Once a day for 90 days Active Colchicine 0.6 MG 1 tablet Orally twic e a day until gout better and then once a day Not-Taking Vagifem 10 MCG 1 tablet Vaginal Two times a Week Active Timolol Maleate 0.5 % INSTILL 1 DROP IN BOTH EYES EVERY MORNING Ophthalmic for 90 Active Probiotic - 1 capsule Orally lety ry other day Not-Taking Omeprazole 20 mg TAKE 1 CAPSULE DAILY Active Immunizations Vaccine Route Administration Date Status [...] pt was give n the vaccine at [facility] in [place].High dose was given. Prevnar 13 Unknown 03/19/2017 Administered [facility]ix Quadrivalent Unknown 04/03/2018 Administered [facility] [place] Influenza High Dose Unknown 03/05/2019 [facility]ered [facility] PPSV23 (Pnemovax) IM Intramuscular 05/10/2019 Administered Fluarix Quadrivalent Unknown 02/21/2020 Administered [facility] SARS-COV-2 Moderna Unknown 08/02/2020 Administered SARS-COV-2 Moderna Unknown 08/30/2020 Administered Influenza High Dose IM Intramuscular 03/06/2021 Administer ed SARS-COV-2 Moderna Unknown 04/02/2021 Administered Influenza High Dose IM Intramuscular 02/26/2022 Administer ed Influenza High Dose IM Intramuscular 03/11/2023 Administer ed Influenza High Dose IM Intramuscular 02/26/2024 Administer ed Influenza High Dose IM Intramuscular 01/25/2025 Administer ed Social History Tobacco Use: Social [...] Problem Status W/U Status Risk Notes Problem 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) Active confirmed Problem 17908048 Anxiety (F41.9) Active confirmed Problem Hereditary hemochromatosis (60429187) Hereditary hemochromatosis (E83.110) Active confirmed Problem Hypercalcemia (66668472) Hypercalcemia (E83.52) Active confirmed Problem 584241496 Gastroesophageal reflux disease without esophagitis (K21.9) Active confirmed Problem 84083252 Essential hypert ension (I10) Active confirmed Problem 2171690 Prediabetes (R73.09) Active confirmed Problem 955747731 Abnormal LFTs (R79.89) Active confirm ed Problem Glaucoma (80790594) Glaucoma (H40.9) Active confirmed Problem 01325686 Tophaceous gout (M1A.9XX1) Active confirmed Problem 350749030 Pure hypercholesterolemia (E78.00) Active confirmed Problem 127653268 Hemochromatosis, unspecified hemochromatosis type (E83.119) Active confirmed Problem 519934565 Osteopenia of ri ght thigh (M85.851) Active confirmed Problem Acute arthritis (96102374) Acute arthritis (M19.90) Active confirmed Problem 703876485 Vaginal burning (N94.9) Active confirmed Problem 953521858 Gouty arthritis (M10.9) Active confirmed Problem 37050697 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 Problem 786799883191189 Drug-induced gou t of left foot, 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 Problem 09069128 Gout, tophaceous (M1A.9XX1) Active confirmed Vital Signs Blood pressure diastolic 60 mm Hg 01/06/2025 Height 64.25 in 01/06/2025 Blood pressure systolic 112 mm Hg 01/06/2025 Weight 138 lbs 01/06/2025 BMI 23.5 kg/m2 01/06/2025 Encounters Encounter Location Date Provider Diagnosis Paulino Huynh MD [address] [place] [id number] 02/26/2024 Paulino Huynh Encounter for immuni zation Z23 Paulino Huynh MD [address] [place] [id number] 04/27/2024 Paulino Huynh Pure hypercholestero lemia E78.00 ; Prediabetes R73.09 and Elevated LFTs R79.89 Paulino Huynh MD [address] [place] [id number] 06/25/2024 Paulino Huynh Blood tests for rout ine general physical examination Z00.00 ; Essential hypertension I10 ; Prediabetes R73.09 ; Pure hypercholesterolemia E78.00 and Abnormal LFTs R79.89 Paulino Huynh MD [address] [place] [id number] 12/30/2024 Paulino Huynh Pure hypercholestero lemia E78.00 Paulino Huynh MD [address] [place] [id number] 01/25/2025 Paulnio Huynh Encounter for administration of vaccine Z23 Paulino Huynh MD [address] [place] [id number] 03/01/2024 Paulino Huynh Tophaceous gout M1A. 9XX1 ; Hemochromatosis, unspecified hemochromatosis type E83.119 and Elevated LFTs R79.89 Paulino Huynh MD [address] [place] [id number] 05/04/2024 Paulino Huynh Pure hypercholestero lemia E78.00 ; Elevated LFTs R79.89 and Gouty arthritis M10.9 Paulino Huynh MD [address] [place] [id number] 07/09/2024 Paulino Huynh Prediabetes R73.09 ; Annual physical exam Z00.00 ; Essential hypertension I10 ; Gout, tophaceous M1A.9XX1 ; Gastroesophageal reflux disease without esophagitis K21.9 ; Pure hypercholesterolemia E78.00 and Depression screening Z13.31 Paulino Huynh MD [address] [place] [id number] 01/06/2025 Paulino Huynh Abnormal LFTs R79.89 and Gouty arthritis M10.9 Paulino Huynh MD [address] [place] [id number] 09/06/2024 Paulino Huynh Gout, tophaceous M1A .9XX1 and Essential hypertension I10 Paulino Huynh MD [address] [place] [id number] 09/14/2024 Paulino Huynh Gout, tophaceous M1A .9XX1 and Essential hypertension I10 Paulino Huynh MD [address] [place] [id number] 09/20/2024 Paulino Huynh Assessments Encounter Date Diagnosis (ICD Code) Assessment Notes Treatment Notes Treatment Clinical Notes Section Notes 02/26/2024 Encounter for immunization (ICD-10 - Z23) 04/27/2024 Pure hypercholesterolemia (ICD-10 - E78.00) 04/27/2024 Prediabetes (ICD-10 - R73.09) 06/25/20[address] tests [address] ine general physical examination (ICD-10 - Z00.00) 12/30/2024 Pure hypercholesterolemia (ICD-10 - E78.00) 01/25/2025 Encounter for administration of vaccine (ICD-10 - Z23) 03/01/2024 Tophaceous gout (ICD -10 - M1A.9XX1) [...] Z00.00) labs reviewed and discussed with patient 01/06/2025 Abnormal LFTs (ICD-1 0 - R79.89) will continue to monitor, may be partly related to the meds for gout 09/06/2024 Gout, tophaceous (IC D-10 - M1A.9XX1) 09/14/2024 Gout, tophaceous (IC D-10 - M1A.9XX1) 04/27/2024 Elevated LFTs (ICD-1 0 - R79.89) 06/25/2024 Essential hypertensi on (ICD-10 - I10) 03/01/2024 Elevated LFTs (ICD-1 0 - R79.89) 05/04/2024 Gouty arthritis (ICD -10 - M10.9) is getting better, will continue to monitor 07/09/2024 Essential hypertensi on (ICD-10 - I10) doing well, will continue current regiment 01/06/2025 Gouty arthritis (ICD -10 - M10.9) doing great on colchicine 09/06/2024 Essential hypertensi on (ICD-10 - I10) 09/14/2024 Essential hypertensi on (ICD-10 - I10) 06/25/2024 Prediabetes (ICD-10 - R73.09) 07/09/2024 Gout, tophaceous (IC D-10 - M1A.9XX1) [...] Test Test Name Order Date Electrocardiogram (EKG) 04/12/2016 Electrocardiogram (EKG) 05/07/2018 Electrocardiogram (EKG) 05/14/2019 Next Appt Details Provider Name:Paulino dyer, 04/08/2025 07:45:00 AM, [address] [place] [address], [address], [place], [place], [phone], Provider Name:Paulino dyer, 07/08/2025 07:15:00 AM, [address], [address], [place], [place], [phone], Provider Name:Paulino Gant ier, 07/15/2025 11:00:00 AM, [address], [address], [place], [id number], Insurance Providers Payer Name Payer Address Payer Phone Subscriber Number Group Number Insured Name Patient Relationship to Insured Coverage Start Date Coverage End Date [employer] MED[employer]ARE ADVANTAGE [address] GABRIELA LINO [id number] ChayaKiersten harrison Self - patient is the insured MEDICARE [employer] [address] [place] [id number] Kiersten Alfred Self - patient is the insured Medical (General) History Medical History History ICD Code 08/27/13, - Patient @ [facility] [employer] ([phone]) 08/27/13- MammoGeo- last done in 2011 Depression screening - 03/11/2014 L[facility] ADJUSTER appt 04/08; no pap done (last pap 08/27/10); CELENA said E5 years Colonoscopy was done in 04/26 009 - repeat 10 years; Colonoscopy done 11/03/[address] Hutchinson = repeat depends on biopsy Due iron and ferritin yearly (done 04/14 17)
--- OUTSIDE RECORDS SUMMARY | 2025-01-27 15:16 | XMS_ITS | Encounter Summary ---
Author Organization [facility] Address [address] [place] [address] Phone Care Team Providers Care Saw Handle Assembler Name Role Phone Paulino Huynh MD Unavailable [phone] Paulino Huynh MD Primary Care Provider Encounter Details Date Type Department Care Team (Late st Contact Info) Description 03/11/2022 Procedure Pass [address] [place] [address] Social History Tobacco Use Types Packs/Day Years [...] on filedocumented in this encounter Care Teams Saw Handle Assembler Relationship Specialty Start Date End Date Paulino Huynh MD [address] [place] [address] [place] [address] PCP - General 05/29/17 Paulino Huynh MD [address] [place] [address] [place] [address] Historical LMR Provider 03/12/17 documented as of this encounter Additional Source Comments The information contained in this document represents components of the legal health record. It is not the complete legal health record.[facility]
[2025-03-11 09:22] VITALS: BMI 23.1
--- NOTE | 2025-03-11 14:46 | HO.ANESPROP2 ---
Documented by User: Komal Cruz NP 03/11/25 14:46 HPI - Anesthesia Eval Consult details Narrative: 74 yr old female for colonoscopy GERD PMFSH Active Problems Active Problems: All Active Problems (Updated 03/11/25 @ 09:16 by Lillian Valentino, RN) Transaminitis (Acute) Tophaceous gout (Acute) Past Medical History Medical History Urinary incontinence Hemochromatosis GERD (gastroesophageal reflux disease) Fatty liver Pure hypercholesterolemia Tophaceous gout Drug-induced gout of left foot Essential hypertension Family History Family History Mother No problems noted. Brother Gout Father Gout Other Family history of heart disease Surgical History Surgical History History of Hx of colonoscopy (10/2019) Social History Social History Alcohol intake: current Alcohol intake frequency: 0-2 drinks per day Alcohol type: wine Patient Tobacco Use Status: Former Tobacco user Use of substances other than those prescribed or required for medical reasons: No Advance Directives: No Advance Directives Information Provided: Yes Meds Allergies Allergy/AdvReac Type Severity Reaction Status Date / Time nitrofurantoin (From AdvReac Rash Verified 02/24/24 08:13 Macrodantin) sulfamethoxazole (From AdvReac Rash Verified 02/24/24 08:13 Bactrim) trimethoprim (From Bactrim) AdvReac Rash Verified 02/24/24 08:13 Home Medications ?Medication ?Instructions ?Recorded ?Confirmed ?Last Taken ?Type amlodipine 5 mg tablet 5 mg PO DAILY 10/08/23 03/15/25 03/14/25 08:30 History estradiol 10 mcg vaginal tablet 10 mcg vaginal 2XW 10/08/23 03/11/25 Unknown History colchicine 0.6 mg tablet 0.6 mg PO BID 03/11/25 03/15/25 03/14/25 08:30 History nebivolol 5 mg tablet (Bystolic) 5 mg PO DAILY 03/11/25 03/15/25 03/14/25 08:30 History omeprazole 20 mg capsule,delayed 40 mg PO BID 03/11/25 03/15/25 03/14/25 08:30 History release timolol maleate 0.5 % eye drops 1 drp ophthalmic (eye) QAM 03/11/25 03/11/25 Unknown History Exam Height,Weight and Vital Signs: Height 5 ft 4.25 in Weight 61.598 kg Documented by User: Ana Maria Bledsoe MD 03/15/25 07:25 [facility] Past Medical History Medical History Urinary incontinence Hemochromatosis GERD (gastroesophageal reflux disease) Fatty liver Pure hypercholesterolemia Tophaceous gout Drug-induced gout of left foot Essential hypertension Family History Family History Mother No problems noted. Brother Gout Father Gout Other Family history of heart disease Surgical History Surgical History History of Hx of colonoscopy (10/2019) History of Problems with Anesthesia: No Social History Social History Alcohol intake: current Alcohol intake frequency: 0-2 drinks per day Alcohol type: wine Patient Tobacco Use Status: Former Tobacco user Use of substances other than those prescribed or required for medical reasons: No Advance Directives: No Advance Directives Information Provided: Yes Meds Allergies Allergy/AdvReac Type Severity Reaction Status Date / Time nitrofurantoin (From AdvReac Rash Verified 02/24/24 08:13 Macrodantin) sulfamethoxazole (From AdvReac Rash Verified 02/24/24 08:13 Bactrim) trimethoprim (From Bactrim) AdvReac Rash Verified 02/24/24 08:13 Home Medications ?Medication ?Instructions ?Recorded ?Confirmed ?Last Taken ?Type amlodipine 5 mg tablet 5 mg PO DAILY 10/08/23 03/15/25 03/14/25 08:30 History estradiol 10 mcg vaginal tablet 10 mcg vaginal 2XW 10/08/23 03/11/25 Unknown History colchicine 0.6 mg tablet 0.6 mg PO BID 03/11/25 03/15/25 03/14/25 08:30 History nebivolol 5 mg tablet (Bystolic) 5 mg PO DAILY 03/11/25 03/15/25 03/14/25 08:30 History omeprazole 20 mg capsule,delayed 40 mg PO BID 03/11/25 03/15/25 03/14/25 08:30 History release timolol maleate 0.5 % eye drops 1 drp ophthalmic (eye) QAM 03/11/25 03/11/25 Unknown History Exam Airway Mallampati Class: II TM Dist: >3cm Neck ROM: Full Loose/Missing/Broken Teeth: No Heart: RRR Lungs: CTA Assessment and Plan Assessment Anesthesia Assessment: Anesthesia Plan Discussed and Chart Reviewed Final Anesthetic Review History of Problems with Anesthesia: No NPO: Yes ASA Class: II Final Preanesthetic Review: Meds/Allgs Chart Reviewed, Consent Obtained/Reviewed and Anes Risks/Benef Reviewed Patient Risk: Low Procedure Risk: Low Anesthetic Plan Anesthetic Plan: MAC: Disposition: Standard PACU
[2025-03-15 06:41] VITALS: BMI 22.9
[2025-03-15 06:53] VITALS: BP 122/61; PULSE 71; RESP 16; TEMP 36.2; O2SAT 98
[2025-03-15] MEDS: Lactated Ringers 1,000 ML 100 ML IVCONT (06:54)
--- NOTE | 2025-03-15 07:35 | MHC.SHP ---
Pre-Procedural Eval Section A - 24 Hr Update-Section A only Date of Service: 03/15/25 Section B - Complete if H&P > 30 days Chief Complaint: screening Details of Present Illness: see H&P no changes Relevant Family History (Specify if Yes): No Relevant Social History: None Present Medications: see Short Stay Collaborative assessment Medical History: No relevant PMH History of Previous Operations: No relevant previous surgery Allergies: Allergies Allergy/AdvReac Type Severity Reaction Status Date / Time nitrofurantoin (From AdvReac Rash Verified 02/24/24 08:13 Macrodantin) sulfamethoxazole (From AdvReac Rash Verified 02/24/24 08:13 Bactrim) trimethoprim (From Bactrim) AdvReac Rash Verified 02/24/24 08:13 Review of Systems Sugical H&P ROS: Negative: Constitution, Cardiovascular, Respiratory, Neurological, Psychiatric, Hem-Onc, Allergic/Immunologic, Gastrointestinal, Genitourinary, Musculoskeletal, Integumentary, Endocrine and Eyes/Ears/Nose/Throat Exam Surgical H&P Exam: Normal: HEENT, Normal: Heart, Normal: Lungs, Normal: Extremities, Normal: Abdomen, Normal: Skin and Normal: Neurological Plan Diagnosis/Plan: Unchanged I have reviewed the history and physical and performed a pertinent physical examination on my patient. No changes have occurred unless specified. Time Spent With Patient Time: Total time managing care of this patient today ____ minutes.
[2025-03-15 08:08] VITALS: BP 93/49; PULSE 69; RESP 16; TEMP 36.5; O2SAT 96
[2025-03-15 08:20] VITALS: BP 95/55; PULSE 73; RESP 16; O2SAT 96
--- NOTE | 2025-03-15 08:48 | OP_ITS ---
DATE OF SERVICE: 03/15/2025 SURGEON: Prem Pruitt MD INDICATIONS: Colon cancer screening and prior history of adenomatous colon polyps. PREOPERATIVE DIAGNOSIS: POSTOPERATIVE DIAGNOSIS: PROCEDURE PERFORMED: Colonoscopy to the terminal ileum with biopsy. ESTIMATED BLOOD LOSS: COMPLICATIONS: ANESTHESIA: Monitored anesthesia care. ASSISTANTS: SPECIMENS: DESCRIPTION OF PROCEDURE: A history and physical was performed. The risks and benefits of the procedure were explained to the patient, and informed consent was obtained. The patient was placed in the left lateral decubitus position. A digital rectal exam was performed and was found to be normal. The Olympus pediatric video colonoscope was introduced into the rectum and advanced to the cecum. The cecum was identified by transillumination, palpation, and identification of ileocecal valve. Examination was performed. The scope was removed. She tolerated the procedure well and was returned to the recovery area in stable condition. FINDINGS: The terminal ileum was examined and appeared normal. Visualized colonic mucosa was normal. The quality of the prep was good. Two polyps were identified in the cecum measuring less than 5 mm, both removed with a biopsy forceps. There was moderate sigmoid diverticulosis. The quality of the prep was good. Retroflexed examination showed some small internal hemorrhoids. IMPRESSION: Colon polyps. RECOMMENDATION: Follow up the biopsy results. MD TOM Maciel/HARLAN / [id number]
== END 2025-03-15 08:55 | disposition home or self-care (01) ==
PROVIDERS: PCP Internal Medicine; Visit Provider Internal Medicine Gastroenterology
PROC: 0DJD8ZZ Inspection of Lower Intestinal Tract, Via Natural or Artificial Opening Endoscopic (ICD-10-PCS; CPT 45378; principal; 2025-03-15 07:30)
DX: Z12.11 Encounter for screening for malignant neoplasm of colon (principal); Z86.0101 Personal history of adenomatous and serrated colon polyps; K21.9 Gastro-esophageal reflux disease without esophagitis; R79.89 Other specified abnormal findings of blood chemistry; K57.30 Diverticulosis of large intestine without perforation or abscess without bleeding; D12.0 Benign neoplasm of cecum
CPT/HCPCS: 45380; 88305; J2003; J2704

== ENCOUNTER 2025-04-08 11:14 | Outpatient (REF) | payer MEDICARE, SELFPAY ==
--- OUTSIDE RECORDS SUMMARY | 2024-05-04 08:45 | XMS_ITS ---
Author Organization Paulino Huynh MD Address [address] [place], [place] [id number] Care Team Providers Care Damper Maker Name Role Phone Paulino Huynh Primary Care Provider [phone] Allergies Allergen (clinical drug ingredient) Drug/Non Drug Allergy documented on EMR Reaction Allergy Type Onset Date Status nitrofurantoin Macrodantin rash Drug Allergy Active sulfamethoxazole / trimethoprim Bactrim DS rash Drug Allergy Active REASON FOR VISIT 2 month/ must see labs liver Medications Medication SIG (Take, Route, Frequency, Duration) Notes Start Date End Date Status Atorvastatin Calcium 10 mg TAKE 1 TABLET DAILY Active Colchicine 0.6 MG 1 tablet Orally twic e a day until gout better and then once a day for 90 days Active Allopurinol 100 MG 1 tablet Orally Once a day for 30 day(s) Not-Taking Ibuprofen 800 MG 1 tablet with food o r milk Orally Three times a day for 30 day(s) 03/25/2017 Not-Taking Probiotic - 1 capsule Orally lety ry other day Not-Taking CeleBREX 200 MG 1 capsule with food Orally Once a day for 30 day(s) 12/30/2022 Active Nebivolol HCl 5 mg TAKE 1 TABLET TWICE A DAY Active Omeprazole 20 mg TAKE 1 CAPSULE DAILY Active amLODIPine Besylate 5 mg TAKE 1 TABLET DAILY Active Vagifem 10 MCG 1 tablet Vaginal Two times a Week Active Allopurinol 100 MG 2 tablet Orally Once a day Active Timolol Maleate 0.5 % INSTILL 1 DROP IN BOTH EYES EVERY MORNING Ophthalmic for 90 Active Problems Problem Type SNOMED Code ICD Code Onset Dates Problem Status W/U Status Risk Notes Problem [id number] Gouty arthritis (M10.9) Active confirmed Vital Signs Blood pressure systolic 98 mm Hg 05/04/20 24 Blood pressure diastolic 60 mm Hg 024 Height 64.25 in 05/04/2024 Weight 137 lbs 05/04/2024 BMI 23.33 kg/m2 05/04/2024 Encounters Encounter Location Date Provider Diagnosis Paulino Huynh MD [address] [place] [phone] 05/04/2024 Paulino Huynh Pure hypercholestero lemia E78.00 ; Elevated LFTs R79.89 and Gouty arthritis M10.9 Assessments Encounter Date Diagnosis (ICD Code) Assessment Notes Treatment Notes Treatment Clinical Notes Section Notes 05/04/2024 Pure hypercholesterolemia (ICD-10 - E78.00) not high enough to treat 05/04/2024 Elevated LFTs (ICD-1 0 - R79.89) is not caused by alcohol, discused findings of recent LFT's, will contnue to monitor 05/04/2024 Gouty arthritis (ICD -10 - M10.9) is getting better, will continue to monitor Plan Of Treatment Treatment Notes Assessment Notes Pure hypercholesterolemia not high enoug h to treat Elevated LFTs is not caused by alc ohol, discused findings of recent LFT's, will contnue to monitor Gouty arthritis is getting better, w ill continue to monitor Next Appt Details Follow Up: 2 Months, Reason: Provider Name:Paulino dyer, 07/08/2025 07:15:00 AM, [address] [place] [address], [address], [phone], Provider Name:Paulino dyer, 07/15/2025 11:00:00 AM, [address] [place] [address], [place] [address], [place], [place], [phone], Progress Notes * Kiersten GILLIS DDOB: [birth year] (73 yo F)Acc No.[id number]:05/04/2024 Patient: Kiersten Altamirano Provider: Yuki Huynh MD :1950 A ge:73 Y S ex:Female Date:05/04/2024 Address: [address], [id number] Subjective: * Chief Complaints: * 2 month/ must see labs liver * HPI: S ymptom(s): patientis a 73 yo female here for 2 month follow up visit and discussion of recent labs. * ROS: G eneral/Constitutional: Denies C hills. D enies F atigue. D enies F ever. D enies H eadache. E NT: Patient denies d ecreased sense of smell , any loss of taste , sore throat. D enies S ore throat. R espiratory: Denies C ough. D enies S hortness of breath at rest. D enies S hortness of breath with exertion. G astrointestinal: Denies D iarrhea. D enies N ausea. M usculoskeletal: Patient denies m uscle aches. P eripheral Vascular: Patient denies r ed and blue toes. * Medical History: * Surgical History: * Hospitalization/Major Diagno stic Procedure: * Medications: T akingAllopurinol 100 MG Tablet 2 tablet Orally Once a dayTimolol Maleate 0.5 % Solution INSTILL 1 DROP IN BOTH EYES EVERY MORNING Ophthalmic Vagifem 10 MCG Tablet 1 tablet Vaginal Two times a WeekCeleBREX 200 MG Capsule 1 capsule with food Orally Once a dayNebivolol HCl 5 mg Tablet TAKE 1 TABLET TWICE A DAY Omeprazole 20 mg Capsule Delayed Release TAKE 1 CAPSULE DAILY amLODIPine Besylate 5 mg Tablet TAKE 1 TABLET DAILY Atorvastatin Calcium 10 mg Tablet TAKE 1 TABLET DAILY Colchicine 0.6 MG Tablet 1 tablet Orally twice a day until gout better and then once a dayTaking Allopurinol 100 MG Tablet 2 tablet Orally Once a dayTaking Timolol Maleate 0.5 % Solution INSTILL 1 DROP IN BOTH EYES EVERY MORNING Ophthalmic Taking Vagifem 10 MCG Tablet 1 tablet Vaginal Two times a WeekTaking CeleBREX 200 MG Capsule 1 capsule with food Orally Once a dayTaking Nebivolol HCl 5 mg Tablet TAKE 1 TABLET TWICE A DAY Taking Omeprazole 20 mg Capsule Delayed Release TAKE 1 CAPSULE DAILY Taking amLODIPine Besylate 5 mg Tablet TAKE 1 TABLET DAILY Taking Atorvastatin Calcium 10 mg Tablet TAKE 1 TABLET DAILY Taking Colchicine 0.6 MG Tablet 1 tablet Orally twice a day until gout better and then once a dayNot-Taking/PRNAllopurinol 100 MG Tablet 1 tablet Orally Once a dayIbuprofen 800 MG Tablet 1 tablet with food or milk Orally Three times a dayProbiotic - Capsule 1 capsule Orally every other dayMedication List reviewed and reconciled with the patientNot-Taking/PRN Allopurinol 100 MG Tablet 1 tablet Orally Once a dayNot-Taking/PRN Ibuprofen 800 MG Tablet 1 tablet with food or milk Orally Three times a dayNot-Taking/PRN Probiotic - Capsule 1 capsule Orally every other dayMedication List reviewed and reconciled with the patient * Allergies: B actrim DS: rashMacrodantin: sean[Allergies Verified] Objective: * Vitals: H t: 64.25, Wt:137, BMI:23.33, BP:98/60. * Examination: G eneral Examination: GENERAL APPEARANCE: w ell developed, well nourished. SKIN: g ood turgor. HEART: r egular rate and rhythm , no murmurs, rubs, gallops. LUNGS: n o wheezes, rales, rhonchi , good air movement , clear to auscultation bilaterally. EXTREMITIES: T HE TOPHI are decreasing in size. ? Assessment: * Assessment: 1. P ure hypercholesterolemia - E78.00 (Primary) 2 . E levated LFTs - R79.89 3 .?Gouty arthritis - M10.9 Plan: * Treatment: 2. E levated LFTs Notes: is not caused by alcohol, discused findings of recent LFT's, will contnue to monitor ? 3. G outy arthritis Notes: is getting better, will continue to monitor * Procedure Codes: * Follow Up: 2 Months * * Sign off status: Completed true * Provider: Yuki Huynh MD Date: 07/05/2023 Generated for Radha goncalves/Khari/Jose on: 06/08/2024 05:12 PM EST History and Physical Notes * HPI (History of Present Illness) Category Sub-Category Detail Notes Category Not es Symptom(s) patientis a 73 yo female here for 2 month follow up visit and discussion of recent labs Examination Category Sub-Category Detail Notes Category Not es General Examination GENERAL APPEARANCE: well developed , well nourished HEART: regular rate and rhy thm , no murmurs, rubs, gallops LUNGS: no wheezes, rales, r honchi , good air movement , clear to auscultation bilaterally SKIN: good turgor EXTREMITIES: THE TOPHI are decrea sing in size
--- OUTSIDE RECORDS SUMMARY | 2024-06-25 02:45 | XMS_ITS ---
Author Organization Paulino Huynh MD Address [address] [place], [place] [id number] Care Team Providers Care Instructional Paraprofessional Name Role Phone Paulino Huynh Primary Care Provider Results Component Value Reference Range Notes Complete Blood Count Auto Di ff Reviewed date:06/25/2024 12:28:42 PM Interpretation: Performing Lab:[facility], [address] [place] [id number] Notes/Report: White Blood Count 5.3 4.8-10.8 X10*3/uL Red Blood Count 4.14 4.20-5.50 X10*6/uL Hemoglobin 13.5 12.0-16.0 g/dl Hematocrit 41.5 37.0-47.0 % Mean Corpuscular Volume 100.2 80.0-98.0 fL Mean Corpuscular Hemoglobin 32.6 27.0-33.0 pg Mean Corpuscular HGB Conc 32.5 31.0-35.0 g/dl Red Cell Distribution Width 13.8 11.0-16.0 % Platelet Count 195 160-400 X10*3/uL Mean Platelet Volume 10.2 9.4-12.3 fL Neutrophils Percent Auto 43.5 45-73 % Imm Gran Pct Auto 0.2 0.0-0.4 % Lymphocytes Percent Auto 42.7 20-40 % Monocytes Percent Auto 8.9 2-11 % Eosinophils Percent Auto 3.8 0-4 % Basophils Percent Auto 0.9 0-2 % NRBC Pct Auto 0.0 0.0-0.2 /100WBC Neutrophils Absolute Auto 2.3 2.0-8.3 x10*3/u L Imm Gran Abs Auto 0.01 0.00-0.03 X10*3/uL Lymphocytes Absolute Auto 2.3 1.2-4.9 X10*3/u L Monocytes Absolute Auto 0.5 0.1-1.2 X10*3/uL Eosinophils Absolute Auto 0.2 0.0-0.4 X10*3/u L Basophils Absolute Auto 0.1 0.0-0.2 X10*3/uL NRBC Abs Auto 0.000 0.0-0.012 X10*3/uL Comprehensive Bryan. Panel Fa Reviewed date:06/25/2024 12:28:25 PM Interpretation: Performing Lab:[address] [phone] Notes/Report: Sodium 145 135-145 mmol/L Potassium 4.3 3.3-5.1 mmol/L Chloride 106 96-108 mmol/L Carbon Dioxide 27 22-29 mmol/L Anion Gap 16 12-20 Blood Urea Nitrogen 24 9-16 mg/dL Creatinine 0.96 0.5-1.4 mg/dL Estimated Glomerular Filt Rate 57 Chronic Kidney Disease: Estimated GFR < 60 mL/min/1.73m2 Severe Kidney Disease: Estimated GFR < 15 mL/min/1.73m2 Glucose Fasting 104 60-99 mg/dL A fasting glucose from 100-125 mg/dl is considered impaired (pre-diabetes). Calcium 10.4 8.4-10.2 mg/dL Bilirubin Total 0.7 0.0-1.0 mg/dL Aspartate Amino Transferase 97 5-31 U/L Alanine Aminotransferase 88 0-31 U/L Total Protein 7.6 6.5-8.0 g/dL Albumin Level 4.3 3.5-5.0 g/dL Alkaline Phosphatase 104 39-117 U/L Liver Panel Reviewed date:06/25/2024 12:27:53 PM Interpretation: Performing Lab:[address] [phone] Notes/Report: Bilirubin Direct 0.2 0.0-0.5 mg/dL Lipid Panel Reviewed date:06/25/2024 12:27:40 PM Interpretation: Performing Lab:[address] [phone] Notes/Report: Triglycerides 160 <150 mg/dL Desirable Triglyceride: less than 150 mg/dL Borderline High Triglyceride 150-199 mg/dL High Triglyceride: 200-499 mg/dL Very High Triglyceride: greater than or equal to 5OO mg/dL Cholesterol 199 <200 mg/dL Desirable Cholesterol: less than 200 mg/dL Borderline High Cholesterol: 200-239 mg/dL High Cholesterol: greater than 239 mg/dL LDL Cholesterol Calculated 132 <100 mg/dL Desirable LDL: less than 100 mg/dL Near Optimal/Above Optimal LDL: 110-129 mg/dL Borderline High LDL: 130-159 mg/dL High LDL: 160-189 mg/dL Very High LDL: greater than or equal to 190 mg/dL HDL Cholesterol 35 >40 mg/dL Desirable HDL: greater than 40 mg/dL Note: This HDL assay may give artificially low results in patients with liver disease. Hemoglobin A1c Reviewed date:06/25/2024 12:28:02 PM Interpretation: Performing Lab:[facility], [address] [place] [address] Notes/Report: Hemoglobin A1c % 5.3 <6.0 % Hemoglobin A1C Reference Range Adults: 4.8 - 6.0 % Non diabetic: < 6.0 % Goal: < 7.0 % Additional Action Suggested: > 8.0 % Note: Hemoglobin A1c results are invalid for patients with abnormal amounts of HbF. Blood transfusions may impact the HbA1c concentration in the patient sample. Estimated Average Glucose 105 eAG = Estimated average glucose which is %A1C expressed as average glucose, using the formula of the [id number] Average Glucose study (ADAG), Diabetes Care, Vol.31,#8, Dec. 2007 REASON FOR VISIT yearly fasting labs Encounters Encounter Location Date Provider Diagnosis Paulino Huynh MD [address] [place], [place] [id number] 06/25/2024 Paulino Huynh Blood tests for rout ine general physical examination Z00.00 ; Essential hypertension I10 ; Prediabetes R73.09 ; Pure hypercholesterolemia E78.00 and Abnormal LFTs R79.89 Assessments Encounter Date Diagnosis (ICD Code) Assessment Notes Treatment Notes Treatment Clinical Notes Section Notes 06/25/2024 Blood tests for rout ine general physical examination (ICD-10 - Z00.00) 06/25/2024 Essential hypertensi on (ICD-10 - I10) 06/25/2024 Prediabetes (ICD-10 - R73.09) 06/25/2024 Pure hypercholesterolemia (ICD-10 - E78.00) 06/25/2024 Abnormal LFTs (ICD-1 0 - R79.89) Plan Of Treatment Next Appt Details Provider Name:Paulino Gatn ier, 07/08/2025 07:15:00 AM, [address], [address], [place], [place], [id number], Provider Name:Paulino Gant ier, 07/15/2025 11:00:00 AM, [address], [address], [place], [place], [id number], Progress Notes * Kiersten GILLIS DDOB: [birth year] (74 yo F)Acc No.[id number]:06/25/2024 Progress Note Patient: Kiersten TARANGO Provider: Yuki Huynh MD :1950 A ge:73 Y S ex:Female Date:06/25/2024 Address:[address] [place] [address] , [place], [id number] Subjective: * Chief Complaints: * 1 . Yearly fasting labs. * Medical History: Objective: * Vitals: Assessment: * Assessment: 1. B lood tests for routine general physical examination - Z00.00 (Primary) 2 .?Essential hypertension - I10 3 . P rediabetes - R73.09 4 .?Pure hypercholesterolemia - E78.00 5 . A bnormal LFTs - R79.89 ? Plan: * Treatment: 2. E ssential hypertension L AB: Microalbumin, Random (Order Cancelled) L AB: UA ClnCatch+Micro w/rflx Cult (Order Cancelled) L AB: Liver Panel (Collection Date & Time - 06/25/2024 07:45 AM) L AB: Lipid Panel (Collection Date & Time - 06/25/2024 07:45 AM) L AB: Hemoglobin A1c (Collection Date & Time - 06/25/2024 07:45 AM) 3. P rediabetes L AB: Microalbumin, Random (Order Cancelled) L AB: UA ClnCatch+Micro w/rflx Cult (Order Cancelled) L AB: Liver Panel (Collection Date & Time - 06/25/2024 07:45 AM) L AB: Lipid Panel (Collection Date & Time - 06/25/2024 07:45 AM) L AB: Hemoglobin A1c (Collection Date & Time - 06/25/2024 07:45 AM) 4. P ure hypercholesterolemia L AB: Microalbumin, Random (Order Cancelled) L AB: UA ClnCatch+Micro w/rflx Cult (Order Cancelled) L AB: Liver Panel (Collection Date & Time - 06/25/2024 07:45 AM) L AB: Lipid Panel (Collection Date & Time - 06/25/2024 07:45 AM) L AB: Hemoglobin A1c (Collection Date & Time - 06/25/2024 07:45 AM) 5. A bnormal LFTs L AB: Microalbumin, Random (Order Cancelled) L AB: UA ClnCatch+Micro w/rflx Cult (Order Cancelled) L AB: Liver Panel (Collection Date & Time - 06/25/2024 07:45 AM) L AB: Lipid Panel (Collection Date & Time - 06/25/2024 07:45 AM) L AB: Hemoglobin A1c (Collection Date & Time - 06/25/2024 07:45 AM) * Procedure Codes: 3 6415 VENIPUNCT, ROUTINE* * * The named appointment provid er may or may not be the originator of this progress note, and it is not deemed complete until electronically signed by the appointment provider. Sign off status: Pending * Provider: Yuki Huynh MD Date: 0 06/25/2024 Generated for Radha goncalves/Khari/Jose on: 06/08/2024 05:17 PM EST
--- OUTSIDE RECORDS SUMMARY | 2024-07-09 04:30 | XMS_ITS ---
Author Organization Paulino Huynh MD Address [address] [place], [place] [id number] Care Team Providers Care Molder Sweep Name Role Phone Paulino Huynh Primary Care Provider Allergies Allergen (clinical drug ingredient) Drug/Non Drug Allergy documented on EMR Reaction Allergy Type Onset Date Status nitrofurantoin Macrodantin rash Drug Allergy Active sulfamethoxazole / trimethoprim Bactrim DS rash Drug Allergy Active Results Component Value Reference Range Notes Uric Acid Reviewed date:07/09/2024 04:58:19 PM Interpretation: Performing Lab:[facility], [address] [place] [phone] Notes/Report: Uric Acid 4.0 2.4-5.7 mg/dL Microalbumin, Random Reviewed date:07/09/2024 12:30:56 PM Interpretation: Performing Lab:[facility], [address] [place] [phone] Notes/Report: Creatinine Urine 67.27 Microalbumin Urine 6.0 Microalbum/Creatinine Ratio Ur 8.9 <30 ug/mg cr Albumin/Creatinine Ratio Reference Ranges: Normal: < 30 ug/mg creatinine Microalbuminuria: 30 - 300 ug/mg creatinine Clinical Albuminuria: > 300 ug/mg creatinine UA ClnCatch+Micro w/rflx Cul t Reviewed date:07/09/2024 12:31:12 PM Interpretation: Performing Lab:[facility], [address] [place] [phone] Notes/Report: Urine, Clean Catch Color Urine Yellow Appearance Urine Clear PH 6.0 5.0-9.0 Glucose Urine UA Negative Negative mg/dL Urine Blood Negative Negative Specific Butler - Urine 1.015 1.005-1.025 Urine Protein Negative Neg-Trace mg/dL Urine Ketones Negative Negative mg/dL Nitrite Urine Negative Negative Leukocyte Esterase Urine Negative Negative RBC Urine 0-2 0-2 /HPF WBC Urine 0-5 0-5 /HPF Squamous Epithelial Cell Urine 0-2 0-2 /HPF Bacteria Urine None Seen None Seen Hyaline Casts Urine 0-2 0-2 /LPF REASON FOR VISIT annual visit Medications Medication SIG (Take, Route, Frequency, Duration) Notes Start Date End Date Status Colchicine 0.6 MG 1 tablet Orally twic e a day until gout better and then once a day Active Atorvastatin Calcium 10 mg TAKE 1 TABLET DAILY Active Omeprazole 20 mg TAKE 1 CAPSULE DAILY Active Allopurinol 100 MG 2 tablet Orally Once a day Active amLODIPine Besylate 5 mg TAKE 1 TABLET DAILY Active CeleBREX 200 MG 1 capsule with food Orally Once a day for 30 day(s) 12/30/2022 Active Nebivolol HCl 5 mg TAKE 1 TABLET TWICE A DAY Active Allopurinol 100 MG 1 tablet Orally Once a day for 30 day(s) Not-Taking Probiotic - 1 capsule Orally lety ry other day Not-Taking Ibuprofen 800 MG 1 tablet with food o r milk Orally Three times a day for 30 day(s) 03/25/2017 Not-Taking Vagifem 10 MCG 1 tablet Vaginal Two times a Week Active Timolol Maleate 0.5 % INSTILL 1 DROP IN BOTH EYES EVERY MORNING Ophthalmic for 90 Active Social History Tobacco Use: Social History Observation Description Date Details (start date - stop date) Former Smoker NA - NA Tobacco Use/Smoking Question Answer Notes Patient is a former smoker How long has it been since y ou last smoked? > 10 years Additional Findings: Tobacco Non-User Fo rmer smoker, currently using no form of tobacco Alcohol Screen Question Answer Notes Did you have a drink contain ing alcohol in the past year? Yes How often did you have a dri nk containing alcohol in the past year? 4 or more times a week (4 points) How many drinks did you have on a typical day when you were drinking in the past year? 1 or 2 drinks (0 point) How often did you have 6 or more drinks on one occasion in the past year? Never (0 point) Points 4 Interpretation Positive Problems Problem Type SNOMED Code ICD Code Onset Dates Problem Status W/U Status Risk Notes Problem [id number] Gout, tophaceous (M1A.9XX1) Active confirmed Vital Signs Blood pressure systolic 112 mm Hg 07/09/19 25 Blood pressure diastolic 60 mm Hg 025 Height 64.25 in 07/09/2024 Weight 138 lbs 07/09/2024 BMI 23.5 kg/m2 07/09/2024 Encounters Encounter Location Date Provider Diagnosis Paulino Huynh MD [address] [place] [address] [place] [phone] 07/09/2024 Paulino Huynh Prediabetes R73.09 ; Annual physical exam Z00.00 ; Essential hypertension I10 ; Gout, tophaceous M1A.9XX1 ; Gastroesophageal reflux disease without esophagitis K21.9 ; Pure hypercholesterolemia E78.00 and Depression screening Z13.31 Assessments Encounter Date Diagnosis (ICD Code) Assessment Notes Treatment Notes Treatment Clinical Notes Section Notes 07/09/2024 Prediabetes (ICD-10 - R73.09) doing well, no need for medication at this time, will continue to monitor 07/09/2024 Annual physical exam (ICD-10 - Z00.00) labs reviewed and discussed with patient 07/09/2024 Essential hypertensi on (ICD-10 - I10) doing well, will continue current regiment 07/09/2024 Gout, tophaceous (IC D-10 - M1A.9XX1) stable, will continue current regiment 07/09/2024 Gastroesophageal ref lux disease without esophagitis (ICD-10 - K21.9) doing well, will continue current regiment 07/09/2024 Pure hypercholesterolemia (ICD-10 - E78.00) stable will continue current regiment 07/09/2024 Depression screening (ICD-10 - Z13.31) negative screen Plan Of Treatment Medication Medication Name Sig Start Date Stop Date Notes Colchicine 0.6 MG 1 tablet Orally twic e a day until gout better and then once a day Atorvastatin Calcium 10 mg TAKE 1 TABLET DAILY Omeprazole 20 mg TAKE 1 CAPSULE DAILY Allopurinol 100 MG 2 tablet Orally Once a day amLODIPine Besylate 5 mg TAKE 1 TABLET DAILY Treatment Notes Assessment Notes Prediabetes doing well, no need for medication at this time, will continue to monitor Annual physical exam labs reviewed and d iscussed with patient Essential hypertension doing well, will continue current regiment Gout, tophaceous stable, will continu e current regiment Gastroesophageal reflux dise ase without esophagitis doing well, will continue current regiment Pure hypercholesterolemia stable will co ntinue current regiment Depression screening negative screen Next Appt Details Follow Up: 6 Months, Reason: Provider Name:Paulino Gant iekenyatta, 07/08/2025 07:15:00 AM, [address], [address], [place], [place], [phone], Provider Name:Paulino Gant ier, 07/15/2025 11:00:00 AM, [address], [address], [place], [place], [phone], Progress Notes * Kiersten GILLIS DDOB: [birth year] (73 yo F)Acc No.[id number]:07/09/2024 Progress Notes Patient: Kiersten TARANGO Provider: Yuki Huynh MD :1950 A ge:73 Y S ex:Female Date:07/09/2024 Address:[address] [place] [address] , [place] , [id number] Subjective: * Chief Complaints: * A nnual visit * HPI: D epression Screening: PHQ-9 L ittle interest or pleasure in doing things N ot at all, F eeling down, depressed, or hopeless N ot at all, T rouble falling or staying asleep, or sleeping too much N ot at all, F eeling tired or having little energy N ot at all, P oor appetite or overeating N ot at all, F eeling bad about yourself or that you are a failure, or have let yourself or your family down N ot at all, T rouble concentrating on things, such as reading the newspaper or watching television N ot at all, M oving or speaking so slowly that other people could have noticed; or the opposite, being so fidgety or restless that you have been moving around a lot more than usual N ot at all, T houghts that you would be better off or of hurting yourself in some way N ot at all, T otal Score 0 . I nterpretation and Intervention D epression Screening Findings N egative, F ollow-Up for Depression : review of PHQ-9 found negative result, no follow-up needed. C ommunication Needs: Communication Needs D oes the patient have a hearing impairment N o, D oes the patient have a vision impairment? Y es, I f yes, what is the vision impairment? G lasses, D oes the patient have a cognition impairment? N o. F all Risk: History H ave you had any falls with injury in the past year? N o, H ave you had two or more falls in the past year? N o. S SABRINA Questions: SDOH Questions I n the past year have you been worried about losing housing? N o, I n the past year have you or any family members you live with been unable to get any of the following when it was really needed? Check all that apply: N one. * ROS: G eneral/Constitutional: Change in appetite d enies. C hills d enies. F ever d enies. O phthalmologic: Blurred vision d enies. D ischarge d enies. P ain d enies. E NT: Decreased hearing d enies. S ore throat d enies.?Swollen glands d enies. E ndocrine: Cold intolerance d enies. E xcessive thirst d enies. H eat intolerance d enies. W eight loss d enies. R espiratory: Cough d enies. S hortness of breath at rest d enies. S hortness of breath with exertion d enies. W heezing d enies. C ardiovascular: Chest pain at rest d enies. C hest pain with exertion?denies. I rregular heartbeat d enies. S hortness of breath d enies. ? G astrointestinal: Abdominal pain d enies. C hange in bowel habits d enies. D iarrhea d enies. N ausea d enies. R ectal bleeding d enies. V omiting d enies . G enitourinary: Blood in urine d enies. D ifficulty urinating d enies. F requent urination d enies. U rinary incontinence D enies. M usculoskeletal: Painful joints d enies. W eakness d enies. ? S kin: Dry skin d enies. I tching d enies. D enies?Mole(s), changes in moles, new moles or any lesions of concern. D enies P hotosensitivity. R clemencia d enies. N eurologic: Dizziness d enies. F ainting d enies. H eadache?denies. * Medical History: * Surgical History: * Hospitalization/Major Diagno stic Procedure: * Family History: F ather: 58 yrs. M other: alive 92 yrs. 1 brother(s) , 1 sister(s) . 2 daughter(s) - healthy. . Father-Cardiac Mother- Healthy 1 brother 68 Cardiac, Denies mental health/substance abuse family history, Denies mental health/substance abuse family history, No pertinent family medical history. * Social History: T obacco Use: T obacco Use/Smoking P atient is a f ormer smoker, H ow long has it been since you last smoked? > 10 years, A dditional Findings: Tobacco Non-User F ormer smoker, currently using no form of tobacco. D rugs/Alcohol: A lcohol Screen D id you have a drink containing alcohol in the past year? Y es, H ow often did you have a drink containing alcohol in the past year? 4 or more times a week (4 points), H ow many drinks did you have on a typical day when you were drinking in the past year? 1 or 2 drinks (0 point), H ow often did you have 6 or more drinks on one occasion in the past year? N ever (0 point), P oints 4 , I nterpretation P ositive. M iscellaneous: C affeine: yes, frequency:, 1-2 cups per day. Children: yes. Exercise: yes, Jazzercise 4 times a week. Home smoke detector use: yes. Living with: spouse. Marital status: . Travel outside of the [place]: no. * Medications: T akingAllopurinol 100 MG Tablet 2 tablet Orally Once a day Timolol Maleate 0.5 % Solution INSTILL 1 DROP IN BOTH EYES EVERY MORNING Ophthalmic Vagifem 10 MCG Tablet 1 tablet Vaginal Two times a Week CeleBREX 200 MG Capsule 1 capsule with food Orally Once a day Nebivolol HCl 5 mg Tablet TAKE 1 TABLET TWICE A DAY Omeprazole 20 mg Capsule Delayed Release TAKE 1 CAPSULE DAILY amLODIPine Besylate 5 mg Tablet TAKE 1 TABLET DAILY Atorvastatin Calcium 10 mg Tablet TAKE 1 TABLET DAILY Colchicine 0.6 MG Tablet 1 tablet Orally twice a day until gout better and then once a day Taking Allopurinol 100 MG Tablet 2 tablet Orally Once a day Taking Timolol Maleate 0.5 % Solution INSTILL 1 DROP IN BOTH EYES EVERY MORNING Ophthalmic Taking Vagifem 10 MCG Tablet 1 tablet Vaginal Two times a Week Taking CeleBREX 200 MG Capsule 1 capsule with food Orally Once a day Taking Nebivolol HCl 5 mg Tablet TAKE 1 TABLET TWICE A DAY Taking Omeprazole 20 mg Capsule Delayed Release TAKE 1 CAPSULE DAILY Taking amLODIPine Besylate 5 mg Tablet TAKE 1 TABLET DAILY Taking Atorvastatin Calcium 10 mg Tablet TAKE 1 TABLET DAILY Taking Colchicine 0.6 MG Tablet 1 tablet Orally twice a day until gout better and then once a day Not-Taking/PRNAllopurinol 100 MG Tablet 1 tablet Orally Once a day Ibuprofen 800 MG Tablet 1 tablet with food or milk Orally Three times a day Probiotic - Capsule 1 capsule Orally every other day Medication List reviewed and reconciled with the patientNot-Taking/PRN Allopurinol 100 MG Tablet 1 tablet Orally Once a day Not-Taking/PRN Ibuprofen 800 MG Tablet 1 tablet with food or milk Orally Three times a day Not-Taking/PRN Probiotic - Capsule 1 capsule Orally every other day Medication List reviewed and reconciled with the patient * Allergies: B actrim DS: rashMacrodantin: sean[Allergies Verified] Objective: * Vitals: H t: 64.25, Wt: 138, BMI:23.5, BP:112/60, Wt-k.6. * P ast Orders: L ab:Comprehensive [place]. Panel Fast (Order Date - 06/25/2024) (Collection Date & Time - 06/25/2024 07:45 AM) Value Reference Range Sodium 145 135-145 - mmol/L Bilirubin Total 0.7 0.0-1.0 - mg/dL Aspartate Amino Transferase 97 H 5-31 - U/L Alanine Aminotransferase 88 H 0-31 - U/L Total Protein 7.6 6.5-8.0 - g/dL Albumin Level 4.3 3.5-5.0 - g/dL Alkaline Phosphatase 104 39-117 - U/L Potassium 4.3 3.3-5.1 - mmol/L Chloride 106 96-108 - mmol/L Carbon Dioxide 27 22-29 - mmol/L Anion Gap 16 12-20 - Blood Urea Nitrogen 24 H 9-16 - mg/dL Creatinine 0.96 0.5-1.4 - mg/dL Estimated Glomerular Filt Rate 57 - Glucose Fasting 104 H 60-99 - mg/dL Calcium 10.4 H 8.4-10.2 - mg/dL L ab:Liver Panel (Order Date 06/25/2024) (Collection Date & Time - 06/25/2024 07:45 AM) Value Reference Range Bilirubin Direct 0.2 0.0-0.5 - mg/dL L ab:Lipid Panel (Order Date 06/25/2024) (Collection Date & Time - 06/25/2024 07:45 AM) Value Reference Range Triglycerides 160 H <150 - mg/dL Cholesterol 199 <200 - mg/dL LDL Cholesterol Calculated 132 H <100 - mg/dL HDL Cholesterol 35 L >40 - mg/dL L ab:Hemoglobin A1c (Order Date 06/25/2024) (Collection Date & Time - 06/25/2024 07:45 AM) Value Reference Range Hemoglobin A1c % 5.3 <6.0 - % Estimated Average Glucose 105 - mg/dL L ab:Complete Blood Count Auto Diff (Order Date 06/25/2024) (Collection Date & Time - 06/25/2024 07:45 AM) Value Reference Range White Blood Count 5.3 4.8-10.8 - X10*3/uL Red Blood Count 4.14 L 4.20-5.50 - X10*6/uL Hemoglobin 13.5 12.0-16.0 - g/dl Hematocrit 41.5 37.0-47.0 - % Mean Corpuscular Volume 100.2 H 80.0-98.0 - fL Mean Corpuscular Hemoglobin 32.6 27.0-33.0 - pg Mean Corpuscular HGB Conc 32.5 31.0-35.0 - g/ dl Red Cell Distribution Width 13.8 11.0-16.0 - % Platelet Count 195 160-400 - X10*3/uL Mean Platelet Volume 10.2 9.4-12.3 - fL Neutrophils Percent Auto 43.5 L 45-73 - % Imm Gran Pct Auto 0.2 0.0-0.4 - % Lymphocytes Percent Auto 42.7 H 20-40 - % Monocytes Percent Auto 8.9 2-11 - % Eosinophils Percent Auto 3.8 0-4 - % Basophils Percent Auto 0.9 0-2 - % NRBC Pct Auto 0.0 0.0-0.2 - /100WBC Neutrophils Absolute Auto 2.3 2.0-8.3 - x10* 3/uL Imm Gran Abs Auto 0.01 0.00-0.03 - X10*3/uL Lymphocytes Absolute Auto 2.3 1.2-4.9 - X10* 3/uL Monocytes Absolute Auto 0.5 0.1-1.2 - X10*3/ uL Eosinophils Absolute Auto 0.2 0.0-0.4 - X10* 3/uL Basophils Absolute Auto 0.1 0.0-0.2 - X10*3/ uL NRBC Abs Auto 0.000 0.0-0.012 - X10*3/uL * Examination: G eneral Examination: GENERAL APPEARANCE: w ell developed, well nourished, in no acute distress. HEAD: n ormocephalic, atraumatic. EYES: p upils equal, round, reactive to light and accommodation, sclera non-icteric. EARS: n ormal. ORAL CAVITY: m ucosa moist. THROAT: c lear. NECK/THYROID: n jeff supple, full range of motion, no cervical lymphadenopathy, no bruits. SKIN: w arm and dry, no suspicious lesions. HEART: r egular rate and rhythm, S1, S2 normal, no murmurs.? LUNGS: c lear to auscultation bilaterally. BREASTS: n ot examined done by appliance repair technician.. ABDOMEN: s oft, nontender, nondistended, bowel sounds present, normal, no organomegaly , no masses palpable. RECTAL EXAM: d one by appliance repair technician. FEMALE GENITOURINARY: d one by appliance repair technician. EXTREMITIES: n o clubbing, cyanosis, or edema. NEUROLOGIC: n onfocal, motor strength normal upper and lower extremities, sensory exam intact. Assessment: * Assessment: 1. A nnual physical exam - Z00.00 (Primary) 2 . P rediabetes - R73.09 ? 3 . E ssential hypertension - I10 4 . G out, tophaceous - M1A.9XX1 5 . G astroesophageal reflux disease without esophagitis - K21.9 6. P ure hypercholesterolemia - E78.00 7 . D epression screening - Z13.31 Plan: * Treatment: 2. P rediabetes L AB: Uric Acid (Collection Date & Time - 07/09/2024 09:30 AM) L AB: Microalbumin, Random (Collection Date & Time - 07/09/2024 09:30 AM) L AB: UA ClnCatch+Micro w/rflx Cult (Collection Date & Time - 07/09/2024 09:30 AM) Notes: doing well, no need for medication at this time, will continue to monitor 3. E ssential hypertension Continue amLODIPine Besylate Tablet, 5 mg, TAKE 1 TABLET DAILY. L AB: Microalbumin, Random (Collection Date & Time - 07/09/2024 09:30 AM) L AB: UA ClnCatch+Micro w/rflx Cult (Collection Date & Time - 07/09/2024 09:30 AM) Notes: doing well, will continue current regiment 4. G out, tophaceous Continue Allopurinol Tablet, 100 MG, 2 tablet, Orally, Once a day; C ontinue Colchicine Tablet, 0.6 MG, 1 tablet, Orally, twice a day until gout better and then once a day. Notes: stable, will continue current regiment 5. G astroesophageal reflux disease without esophagitis Continue Omeprazole Capsule Delayed Release, 20 mg, TAKE 1 CAPSULE DAILY. Notes: doing well, will continue current regiment 6. P ure hypercholesterolemia Continue Atorvastatin Calcium Tablet, 10 mg, TAKE 1 TABLET DAILY. Notes: stable will continue current regiment 7. D epression screening Notes: negative screen * Procedure Codes: * Follow Up: 6 Months * * Sign off status: Completed true * Provider: Yuki Huynh MD Date: 0 07/09/2024 Generated for Radha goncalves/Khari/Jose on: 06/08/2024 05:16 PM EST History and Physical Notes * HPI (History of Present Illness) Category Sub-Category Detail Notes Category Not es Depression Screening PHQ-9 Little inte rest or pleasure in doing things: Not at all Feeling down, depressed, or hopeless: No t at all Trouble falling or staying asleep, or sl eeping too much: Not at all Feeling tired or having little energy: N ot at all Poor appetite or overeating: Not at all Feeling bad about yourself o r that you are a failure, or have let yourself or your family down: Not at all Trouble concentrating on thi ngs, such as reading the newspaper or watching television: Not at all Moving or speaking so slowly that other people could have noticed; or the opposite, being so fidgety or restless that you have been moving around a lot more than usual: Not at all Thoughts that you would be b esau off or of hurting yourself in some way: Not at all Total Score: 0 Interpretation and Intervention Depression Yolandae epifanio Findings: Negative Follow-Up for Depression: : review of PH Q-9 found negative result, no follow-up needed SDOH Questions SDOH Questions In the past year have you been worried about losing housing?: No In the past year have you or any family members you live with been unable to get any of the following when it was really needed? Check all that apply:: None Fall Risk History Have you had any falls with injury i n the past year?: No Have you had two or more falls in the st year?: No Communication Needs Communication Needs Does the patient have a hearing impairment: No Does the patient have a vision impairmen t?: Yes If yes, what is the vision impairment?: Glasses Does the patient have a cognition impair ment?: No Examination Category Sub-Category Detail Notes Category Not es General Examination GENERAL APPEARANCE: well dev eloped, well nourished, in no acute distress HEAD: normocephalic, atrau matic EYES: pupils equal, round, reactive to light and accommodation, sclera non-icteric EARS: normal THROAT: clear NECK/THYROID: neck supple, full ra nge of motion, no cervical lymphadenopathy, no bruits HEART: regular rate and rhy thm, S1, S2 normal, no murmurs LUNGS: clear to auscultatio n bilaterally ABDOMEN: soft, nontender, non distended, bowel sounds present, normal, no organomegaly , no masses palpable NEUROLOGIC: nonfocal, motor stre ngth normal upper and lower extremities, sensory exam intact SKIN: warm and dry, no destiney picious lesions EXTREMITIES: no clubbing, cyanosi s, or edema BREASTS: not examined done by appliance repair technician. RECTAL EXAM: done by appliance repair technician FEMALE GENITOURINARY: done by appliance repair technician ORAL CAVITY: mucosa moist
--- OUTSIDE RECORDS SUMMARY | 2024-09-06 04:51 | XMS_ITS ---
Author Organization Paulino Huynh MD Address [address] [place] [phone] Care Team Providers Care Loan And Credit Manager Name Role Phone Paulino Hunyh Primary Care Provider Medications Medication SIG (Take, Route, Frequency, Duration) Notes Start Date End Date Status Nebivolol HCl 5 mg TAKE 1 TABLET TWICE A DAY by mouth for 90 days Active amLODIPine Besylate 5 mg TAKE 1 TABLET D AILY once a day for 90 days Active Allopurinol 100 MG 2 tablet Orally Once a day for 90 days Active Encounters Encounter Location Date Provider Diagnosis Paulino Huynh MD [address] [place] [address] [place] [phone] 09/06/2024 Paulino Huynh Gout, tophaceous M1A.9XX1 and Essential hypertension I10 Assessments Encounter Date Diagnosis (ICD Code) Assessment Notes Treatment Notes Treatment Clinical Notes Section Notes 09/06/2024 Gout, tophaceous (ICD-10 - M1A.9XX1) 09/06/2024 Essential hypertension (ICD-10 - I10) Plan Of Treatment Medication Medication Name Sig Start Date Stop Date Notes Nebivolol HCl 5 mg TAKE 1 TABLET TWICE A DAY by mouth for 90 days amLODIPine Besylate 5 mg TAKE 1 TABLET D AILY once a day for 90 days Allopurinol 100 MG 2 tablet Orally Once a day for 90 days Next Appt Details Provider Name:Paulino dyer, 07/08/2025 07:15:00 AM, [address] [place] [address], Suite [facility], [place], [place], [phone], Provider Name:Paulino dyer, 07/15/2025 11:00:00 AM, [address], [address], [place], [place], [phone], Progress Notes * Kiersten GILLIS DDOB: [birth year] (73 yo F)Acc No.[id number]:09/06/2024 Patient: Kiersten TARANGO :1950 A ge:73 Y S ex:Female Address:[address], [place] [address] * Refills Refill Allopurinol Tablet, 100 MG, Orally, 180 Tablet, 2 tablet, Once a day, 90 days, Refills=3 Refill amLODIPine Besylate Tablet, 5 mg, 90, TAKE 1 TABLET DAILY, once a day, 90 days Refill Nebivolol HCl Tablet, 5 mg, by mouth, 180, TAKE 1 TABLET TWICE A DAY, 90 days, Refills=3 * true * Date: Generated for Radha goncalves/Khari/Rosyitting on: 06/08/2024 05:13 PM EST
--- OUTSIDE RECORDS SUMMARY | 2024-09-14 07:41 | XMS_ITS ---
Author Organization Paulino Huynh MD Address [address] [place] [phone] Care Team Providers Care Biometric Technician Name Role Phone Paulino Huynh Primary Care Provider [phone] REASON FOR VISIT RF Allopurinol Amlodipine Medications Medication SIG (Take, Route, Frequency, Duration) Notes Start Date End Date Status Allopurinol 100 MG 2 tablet Orally Once a day for 90 days Active amLODIPine Besylate 5 mg TAKE 1 TABLET D AILY once a day for 90 days Active Nebivolol HCl 5 mg TAKE 1 TABLET TWICE A DAY by mouth for 90 days Active Encounters Encounter Location Date Provider Diagnosis Paulino Huynh MD [address] [place] [address] [place] [phone] 09/14/2024 Paulino Huynh Gout, tophaceous M1A.9XX1 and Essential hypertension I10 Assessments Encounter Date Diagnosis (ICD Code) Assessment Notes Treatment Notes Treatment Clinical Notes Section Notes 09/14/2024 Gout, tophaceous (ICD-10 - M1A.9XX1) 09/14/2024 Essential hypertension (ICD-10 - I10) Plan Of Treatment Medication Medication Name Sig Start Date Stop Date Notes Allopurinol 100 MG 2 tablet Orally Once a day for 90 days amLODIPine Besylate 5 mg TAKE 1 TABLET D AILY once a day for 90 days Nebivolol HCl 5 mg TAKE 1 TABLET TWICE A DAY by mouth for 90 days Next Appt Details Provider Name:Paulino dyer, 07/08/2025 07:15:00 AM, [address] [place] [address], Suite [facility], [place], [place], [phone], Provider Name:Paulino dyer, 07/15/2025 11:00:00 AM, [address], [address], [place], [place], [phone], Progress Notes * Kiersten GILLIS DDOB: [birth year] (73 yo F)Acc No.[id number]:09/14/2024 Patient: Kiersten TARANGO :1950 A ge:73 Y S ex:Female Address:[address] , [place] [address] * Refills Refill Allopurinol Tablet, 100 MG, Orally, 180 Tablet, 2 tablet, Once a day, 90 days, Refills=3 Refill amLODIPine Besylate Tablet, 5 mg, 90, TAKE 1 TABLET DAILY, once a day, 90 days Refill Nebivolol HCl Tablet, 5 mg, by mouth, 180, TAKE 1 TABLET TWICE A DAY, 90 days, Refills=3 * true * Date: Generated for Radha goncalves/Khari/Rosyitting on: 06/08/2024 05:17 PM EST
--- OUTSIDE RECORDS SUMMARY | 2024-09-20 08:53 | XMS_ITS ---
Author Organization Paulino Huynh MD Address [address] [place] [phone] Care Team Providers Care Pleater Hand Name Role Phone Paulino Huynh Primary Care Provider [phone] REASON FOR VISIT RFNebivolol 5mg Medications Medication SIG (Take, Route, Fr equency, Duration) Notes Start Date End Date Status Nebivolol HCl 5 mg 1 tablet once a day by mouth once a day for 90 days Active Encounters Encounter Location Date Provider Diagnosis Paulino Huynh MD [address] [place] [address] [address] [place] [phone] 09/20/2024 Paulino Huynh Plan Of Treatment Medication Medication Name Sig Start Date Stop Date Notes Nebivolol HCl 5 mg 1 tablet once a day by mouth once a day for 90 days Next Appt Details Provider Name:Paulino dyer, 07/08/2025 07:15:00 AM, [address] [place] [address], [address], [phone], Provider Name:Paulino dyer, 07/15/2025 11:00:00 AM, [address] [place] [address], [address], [phone], Progress Notes * Kiersten GILLIS DDOB: [birth year] (73 yo F)Acc No.[id number]:09/20/2024 Patient: Kiersten TARANGO :1950 A ge:73 Y S ex:Female Address:[address] [place] [address] * Refills Refill Nebivolol HCl Tablet, 5 mg, by mouth, 90 Tablet, 1 tablet once a day, once a day, 90 days, Refills=3 * true * Date: Generated for Radha goncalves/Khari/Jose on: 06/08/2024 05:16 PM EST
--- OUTSIDE RECORDS SUMMARY | 2024-12-30 02:15 | XMS_ITS ---
Author Organization Paulino Huynh MD Address [address] [place], [place] [phone] Care Team Providers Care Program Support Assistant Name Role Phone Paulino Huynh Primary Care Provider Results Component Value Reference Range Notes Liver Panel Reviewed date:12/30/2024 03:24:19 PM Interpretation: Performing Lab:[facility], [address] [place] [phone] Notes/Report: Bilirubin Total 0.9 0.0-1.0 mg/dL Bilirubin Direct 0.3 0.0-0.5 mg/dL Aspartate Amino Transferase 107 5-31 U/L Alanine Aminotransferase 98 0-31 U/L Total Protein 6.9 6.5-8.0 g/dL Albumin Level 4.3 3.5-5.0 g/dL Alkaline Phosphatase 107 39-117 U/L Lipid Panel with Reflex Reviewed date:12/30/2024 08:00:35 PM Interpretation: Performing Lab:[facility], [address] [place] [phone] Notes/Report: Triglycerides 130 <150 mg/dL Desirable Triglyceride: less than 150 mg/dL Borderline High Triglyceride 150-199 mg/dL High Triglyceride: 200-499 mg/dL Very High Triglyceride: greater than or equal to 5OO mg/dL Cholesterol 200 <200 mg/dL Desirable Cholesterol: less than 200 mg/dL Borderline High Cholesterol: 200-239 mg/dL High Cholesterol: greater than 239 mg/dL LDL Cholesterol Calculated 141 <100 mg/dL Desirable LDL: less than 100 mg/dL Near Optimal/Above Optimal LDL: 110-129 mg/dL Borderline High LDL: 130-159 mg/dL High LDL: 160-189 mg/dL Very High LDL: greater than or equal to 190 mg/dL HDL Cholesterol 33 >40 mg/dL Desirable HDL: greater than 40 mg/dL Note: This HDL assay may give artificially low results in patients with liver disease. REASON FOR VISIT 6 month Encounters Encounter Location Date Provider Diagnosis Paulino Huynh MD [address] [place] [address] [place] [phone] 12/30/2024 Paulino Huynh Pure hypercholestero lemia E78.00 Assessments Encounter Date Diagnosis (ICD Code) Assessment Notes Treatment Notes Treatment Clinical Notes Section Notes 12/30/2024 Pure hypercholesterolemia (ICD-10 - E78.00) Plan Of Treatment Next Appt Details Provider Name:Paulino dyer, 07/08/2025 07:15:00 AM, [address] [place] [address], Suite [facility], [place], [place], [phone], Provider Name:Paulino dyer, 07/15/2025 11:00:00 AM, [address] [place] [address], [place] [address], [place], [place], [phone], Progress Notes * Kiersten GILLIS DDOB: [birth year] (74 yo F)Acc No.[id number]:12/30/2024 Progress Note Patient: Kiersten TARANGO Provider: Yuki Huynh MD :1950 A ge:74 Y S ex:Female Date:12/30/2024 Address: [address], [place], [id number] Subjective: * Chief Complaints: * 1 . 6 month. * Medical History: Objective: * Vitals: Assessment: * Assessment: 1. P ure hypercholesterolemia - E78.00 (Primary) Plan: * Treatment: * Procedure Codes: 3 6415 VENIPUNCT, ROUTINE* * * The named appointment provid er may or may not be the originator of this progress note, and it is not deemed complete until electronically signed by the appointment provider. Sign off status: Pending * Provider: Yuki Huynh MD Date: 0 12/30/2024 Generated for Radha goncalves/Khari/eTransmitting on: 1 06/08/2024 05:15 PM EST
--- OUTSIDE RECORDS SUMMARY | 2025-01-06 05:00 | XMS_ITS ---
Author Organization Paulino Huynh MD Address [address] [place], [place] [id number] Care Team Providers Care Braider Tender Name Role Phone Paulino Huynh Primary Care Provider Allergies Allergen (clinical drug ingredient) Drug/Non Drug Allergy documented on EMR Reaction Allergy Type Onset Date Status nitrofurantoin Macrodantin rash Drug Allergy Active sulfamethoxazole / trimethoprim Bactrim DS rash Drug Allergy Active REASON FOR VISIT 6 month Medications Medication SIG (Take, Route, Frequency, Duration) Notes Start Date End Date Status amLODIPine Besylate 5 MG TAKE 1 TABLET D AILY for 90 Active Nebivolol HCl 5 mg 1 tablet once a day by mouth once a day for 90 days Active Ibuprofen 800 MG 1 tablet with food o r milk Orally Three times a day for 30 day(s) 03/25/2017 Not-Taking Allopurinol 100 MG 1 tablet Orally Once a day for 30 day(s) Not-Taking Probiotic - 1 capsule Orally lety ry other day Not-Taking Allopurinol 100 MG 2 tablet Orally Once a day for 90 days Active Colchicine 0.6 MG 1 tablet Orally twic e a day until gout better and then once a day Not-Taking Omeprazole 20 mg TAKE 1 CAPSULE DAILY Active Vagifem 10 MCG 1 tablet Vaginal Two times a Week Active Timolol Maleate 0.5 % INSTILL 1 DROP IN BOTH EYES EVERY MORNING Ophthalmic for 90 Active Vital Signs Blood pressure systolic 112 mm Hg 01/07/20 25 Blood pressure diastolic 60 mm Hg 025 Height 64.25 in 01/06/2025 Weight 138 lbs 01/06/2025 BMI 23.5 kg/m2 01/06/2025 Encounters Encounter Location Date Provider Diagnosis Paulino Huynh MD [address] [place] [address] [place] [phone] 01/06/2025 Paulino Huynh Abnormal LFTs R79.89 and Gouty arthritis M10.9 Assessments Encounter Date Diagnosis (ICD Code) Assessment Notes Treatment Notes Treatment Clinical Notes Section Notes 01/06/2025 Abnormal LFTs (ICD-10 - R79.89) will continue to monitor, may be partly related to the meds for gout 01/06/2025 Gouty arthritis (ICD-10 - M10.9) doing great on colchicine Plan Of Treatment Treatment Notes Assessment Notes Abnormal LFTs will continue to mon itor, may be partly related to the meds for gout Gouty arthritis doing great on colch icine Next Appt Details Provider Name:Paulino Gant iekenyatta, 07/08/2025 07:15:00 AM, [address] [place] [address], Suite [facility], [place], [place], [phone], Provider Name:Paulino Shyanne Stalin ier, 07/15/2025 11:00:00 AM, [address] [place] [address], Suite [facility], [place], [place], [phone], Progress Notes * Kiersten GILLIS DDOB: [birth year] (74 yo F)Acc No.[id number]:01/06/2025 Progress Notes Patient: Kiersten TARANGO Provider: Yuki Huynh MD :1950 A ge:74 Y S ex:Female Date:01/06/2025 Address: [address], [facility], [id number] Subjective: * Chief Complaints: * 6 month * HPI: S ymptom(s): patient is a 74 yo female here for 6 month follow up visit/ has been doing well. * ROS: G eneral/Constitutional: Denies C hills. D enies F atigue. D enies F ever. D enies H eadache. E NT: Denies S ore throat. R espiratory: Denies C ough. D enies S hortness of breath at rest. D enies S hortness of breath with exertion. G astrointestinal: Denies D iarrhea. D envernell N ausea. * Medical History: * Surgical History: * Hospitalization/Major Diagno stic Procedure: * Medications: T akingTimolol Maleate 0.5 % Solution INSTILL 1 DROP IN BOTH EYES EVERY MORNING Ophthalmic Vagifem 10 MCG Tablet 1 tablet Vaginal Two times a Week Omeprazole 20 mg Capsule Delayed Release TAKE 1 CAPSULE DAILY Allopurinol 100 MG Tablet 2 tablet Orally Once a day Nebivolol HCl 5 mg Tablet 1 tablet once a day by mouth once a day amLODIPine Besylate 5 MG Tablet TAKE 1 TABLET DAILY Taking Timolol Maleate 0.5 % Solution INSTILL 1 DROP IN BOTH EYES EVERY MORNING Ophthalmic Taking Vagifem 10 MCG Tablet 1 tablet Vaginal Two times a Week Taking Omeprazole 20 mg Capsule Delayed Release TAKE 1 CAPSULE DAILY Taking Allopurinol 100 MG Tablet 2 tablet Orally Once a day Taking Nebivolol HCl 5 mg Tablet 1 tablet once a day by mouth once a day Taking amLODIPine Besylate 5 MG Tablet TAKE 1 TABLET DAILY Not-Taking/PRNColchicine 0.6 MG Tablet 1 tablet Orally twice a day until gout better and then once a day Allopurinol 100 MG Tablet 1 tablet Orally Once a day Ibuprofen 800 MG Tablet 1 tablet with food or milk Orally Three times a day Probiotic - Capsule 1 capsule Orally every other day Not-Taking/PRN Colchicine 0.6 MG Tablet 1 tablet Orally twice a day until gout better and then once a day Not-Taking/PRN Allopurinol 100 MG Tablet 1 tablet Orally Once a day Not-Taking/PRN Ibuprofen 800 MG Tablet 1 tablet with food or milk Orally Three times a day Not-Taking/PRN Probiotic - Capsule 1 capsule Orally every other day DiscontinuedCeleBREX 200 MG Capsule 1 capsule with food Orally Once a day Atorvastatin Calcium 10 mg Tablet TAKE 1 TABLET DAILY Medication List reviewed and reconciled with the patientDiscontinued CeleBREX 200 MG Capsule 1 capsule with food Orally Once a day Discontinued Atorvastatin Calcium 10 mg Tablet TAKE 1 TABLET DAILY Medication List reviewed and reconciled with the patient * Allergies: B actrim DS: Gabrodantidarwin: sean[Allergies Verified] Objective: * Vitals: H t: 64.25, Wt: 138, BMI:23.5, BP:112/60, Wt-k.6. * P ast Orders: L ab:Liver Panel (Order Date - 12/30/2024) (Collection Date & Time - 12/30/2024 07:15 AM) Value Reference Range Bilirubin Total 0.9 0.0-1.0 - mg/dL Bilirubin Direct 0.3 0.0-0.5 - mg/dL Aspartate Amino Transferase 107 H 5-31 - U/L Alanine Aminotransferase 98 H 0-31 - U/L Total Protein 6.9 6.5-8.0 - g/dL Albumin Level 4.3 3.5-5.0 - g/dL Alkaline Phosphatase 107 39-117 - U/L L ab:Lipid Panel with Reflex (Order Date - 12/30/2024) (Collection Date & Time - 12/30/2024 07:15 AM) Value Reference Range Triglycerides 130 <150 - mg/dL Cholesterol 200 H <200 - mg/dL LDL Cholesterol Calculated 141 H <100 - mg/dL HDL Cholesterol 33 L >40 - mg/dL * Examination: G eneral Examination: GENERAL APPEARANCE: a lert, well hydrated, in no distress.? HEAD: n ormocephalic. HEART: n o murmurs, rubs, gallops, regular rate and rhythm.? LUNGS: n o wheezes, rales, rhonchi, good air movement, clear to auscultation bilaterally. Assessment: * Assessment: 1. A bnormal LFTs - R79.89 (Primary) 2 . G outy arthritis - M10.9 ? Plan: * Treatment: 2. G outy arthritis Notes: doing great on colchicine * Procedure Codes: * * Sign off status: Completed true * Provider: Yuki Huynh MD Date: 0 01/06/2025 Generated for Radha goncalves/Khari/eTransmitting on: 1 06/08/2024 05:18 PM EST History and Physical Notes * HPI (History of Present Illness) Category Sub-Category Detail Notes Category Not es Symptom(s) patient is a 74 yo female here for 6 month follow up visit/ has been doing well. Examination Category Sub-Category Detail Notes Category Not es General Examination GENERAL APPEARANCE: alert, w ell hydrated, in no distress HEAD: normocephalic HEART: no murmurs, rubs, ga llops, regular rate and rhythm LUNGS: no wheezes, rales, r honchi, good air movement, clear to auscultation bilaterally
--- OUTSIDE RECORDS SUMMARY | 2025-01-25 04:15 | XMS_ITS ---
Author Organization Paulino Huynh MD Address [address] [place] [phone] Care Team Providers Care Android Architect Name Role Phone Paulino Huynh Primary Care Provider [phone] REASON FOR VISIT HDF Immunizations Vaccine Route Administration Date Status Comme nts Influenza High Dose IM Intramuscular 01/25/2025 Administer ed Encounters Encounter Location Date Provider Diagnosis Paulino Huynh MD [address] [place] [address] Drive [address] [place] [phone] 01/25/2025 Paulino Huynh Encounter for administration of vaccine Z23 Assessments Encounter Date Diagnosis (ICD Code) Assessment Notes Treatment Notes Treatment Clinical Notes Section Notes 01/25/2025 Encounter for administration of vaccine (ICD-10 - Z23) Plan Of Treatment Next Appt Details Provider Name:Paulino dyer, 07/08/2025 07:15:00 AM, [address] [place] [address], [address], [phone], Provider Name:Paulino dyer, 07/15/2025 11:00:00 AM, [address] [place] [address], [address], [phone], Progress Notes * Kiersten GILLIS DDOB: [birth year] (74 yo F)Acc No.[id number]:01/25/2025 Progress Note Patient: Kiersten TARANGO Provider: Yuki Huynh MD :1950 A ge:74 Y S ex:Female Date:01/25/2025 Address:[address] [place] [address] , [place], [id number] Subjective: * Chief Complaints: * 1 . HDF. * Medical History: Objective: * Vitals: Assessment: * Assessment: 1. E ncounter for administration of vaccine - Z23 (Primary) Plan: * Treatment: * Immunizations: Influenza High Dose : 0.5 mL (Dose No:1) (Route: Intramuscular) given by Amanda Martinez , Office Staff on Right Deltoid * Procedure Codes: 9 0662 FLU VACC PRSV FREE INC ANTIG, G0008 ADMN FLU VAC NO FEE SCHED SAME DAY * * The named appointment provid er may or may not be the originator of this progress note, and it is not deemed complete until electronically signed by the appointment provider. Sign off status: Pending * Provider: Yuki Huynh MD Date: 0 01/25/2025 Generated for Radha goncalves/Khari/Jose on: 06/08/2024 05:14 PM EST
--- OUTSIDE RECORDS SUMMARY | 2025-04-08 02:45 | XMS_ITS ---
Author Organization Paulino Huynh MD Address [address] [place], [place] [id number] Care Team Providers Care Negotiations Director Name Role Phone Paulino Huynh Primary Care Provider Results Component Value Reference Range Notes Liver Panel (Not yet reviewe d by provider) Interpretation: Performing Lab:[facility], [address] [place] [id number] Notes/Report: Bilirubin Total 1.4 0.0-1.0 mg/dL Bilirubin Direct 0.5 0.0-0.5 mg/dL Aspartate Amino Transferase 111 5-31 U/L Alanine Aminotransferase 97 0-31 U/L Total Protein 7.4 6.5-8.0 g/dL Albumin Level 4.5 3.5-5.0 g/dL Alkaline Phosphatase 120 39-117 U/L Glucose Fasting (Not yet rev iewed by provider) Interpretation: Performing Lab:[facility], [address] [place] [phone] Notes/Report: Glucose Fasting 113 60-99 mg/dL A fasting glucose from 100-125 mg/dl is considered impaired (pre-diabetes). Lipid Panel with Reflex (No t yet reviewed by provider) Interpretation: Performing Lab:[address] [phone] Notes/Report: Triglycerides 134 <150 mg/dL Desirable Triglyceride: less than 150 mg/dL Borderline High Triglyceride 150-199 mg/dL High Triglyceride: 200-499 mg/dL Very High Triglyceride: greater than or equal to 5OO mg/dL Cholesterol 204 <200 mg/dL Desirable Cholesterol: less than 200 mg/dL Borderline High Cholesterol: 200-239 mg/dL High Cholesterol: greater than 239 mg/dL LDL Cholesterol Calculated 139 <100 mg/dL Desirable LDL: less than 100 mg/dL Near Optimal/Above Optimal LDL: 110-129 mg/dL Borderline High LDL: 130-159 mg/dL High LDL: 160-189 mg/dL Very High LDL: greater than or equal to 190 mg/dL HDL Cholesterol 39 >40 mg/dL Desirable HDL: greater than 40 mg/dL Note: This HDL assay may give artificially low results in patients with liver disease. Hemoglobin A1c Reviewed date:04/08/2025 12:20:23 PM Interpretation: Performing Lab:[facility], [address] [place] [phone] Notes/Report: Hemoglobin A1c % 5.4 <6.0 % Hemoglobin A1C Reference Range Adults: 4.8 - 6.0 % Non diabetic: < 6.0 % Goal: < 7.0 % Additional Action Suggested: > 8.0 % Note: Hemoglobin A1c results are invalid for patients with abnormal amounts of HbF. Blood transfusions may impact the HbA1c concentration in the patient sample. Estimated Average Glucose 108 eAG = Estimated average glucose which is %A1C expressed as average glucose, using the formula of the [id number] Average Glucose study (ADAG), Diabetes Care, Vol.31,#8, Dec. 2007 REASON FOR VISIT fasting lipids and liver Encounters Encounter Location Date Provider Diagnosis Paulino Huynh MD [address] [place] [address] Drive [address] [place] [id number] 04/08/2025 Paulino Huynh Prediabetes R73.09 a nd Pure hypercholesterolemia E78.00 Assessments Encounter Date Diagnosis (ICD Code) Assessment Notes Treatment Notes Treatment Clinical Notes Section Notes 04/08/2025 Prediabetes (ICD-10 - R73.09) 04/08/2025 Pure hypercholesterolemia (ICD-10 - E78.00) Plan Of Treatment Pending Test Test Name Order Date Liver Panel 04/08/2025 Glucose Fasting 04/08/2025 Lipid Panel with Reflex 04/08/2025 Next Appt Details Provider Name:Paulino dyer, 07/08/2025 07:15:00 AM, [address] [place] [address] Drive, [address], [place], [place], [id number], Provider Name:Paulino dyer, 07/15/2025 11:00:00 AM, [address], [address], [place], [id number], Progress Notes * Kiersten GILLIS DDOB: [birth year] (74 yo F)Acc No.[id number]:04/08/2025 Progress Note Patient: Kiersten TARANGO Provider: Yuki Huynh MD :1950 A ge:74 Y S ex:Female Date:04/08/2025 Address:[address] [place] [address] [address] [facility], [id number] Subjective: * Chief Complaints: * 1 . Fasting lipids and liver. * Medical History: Objective: * Vitals: Assessment: * Assessment: 1. P rediabetes - R73.09 (Primary) 2 . P ure hypercholesterolemia - E78.00? Plan: * Treatment: 2. P ure hypercholesterolemia L AB: Liver Panel (Collection Date & Time - 04/08/2025 07:45 AM) L AB: Glucose Fasting (Collection Date & Time - 04/08/2025 07:45 AM) L AB: Lipid Panel with Reflex (Collection Date & Time - 04/08/2025 07:45 AM) L AB: Hemoglobin A1c (Collection Date & Time - 04/08/2025 07:45 AM) * Procedure Codes: 3 6415 VENIPUNCT, ROUTINE* * * The named appointment provid er may or may not be the originator of this progress note, and it is not deemed complete until electronically signed by the appointment provider. Sign off status: Pending * Provider: Yuki Huynh MD Date: 06/08/2024 Generated for Radha goncalves/Khari/eTsulmasmitting on: 06/08/2024 05:14 PM EST
[2025-04-08 11:47] LABS: Alanine Aminotransferase 97 U/L (0-31); Albumin Level 4.5 g/dL (3.5-5.0); Alkaline Phosphatase 120 U/L (39-117); Aspartate Amino Transferase 111 U/L (5-31); Cholesterol 204 mg/dL (<200); HDL Cholesterol 39 mg/dL (>40); Total Protein 7.4 g/dL (6.5-8.0); Triglycerides 134 mg/dL (<150)
[2025-04-08 13:37] LABS: Reflex LDLD? No
--- OUTSIDE RECORDS SUMMARY | 2025-04-08 17:12 | XMS_ITS | Encounter Summary ---
Author Organization [facility] Address [address] [place] [address] Phone Care Team Providers Care Manager Union Name Role Phone Paulino Huynh MD Unavailable [phone] Paulino Huynh MD Primary Care Provider Encounter Details Date Type Department Care Team (Late st Contact Info) Description 06/20/2021 Procedure Pass [address] [place] [address] Social History Tobacco Use Types Packs/Day Years [...] on filedocumented in this encounter Care Teams Manager Union Relationship Specialty Start Date End Date Paulino Huynh MD [address] [place] [address] [place] [address] PCP - General 05/29/17 Paulino Huynh MD [address] [place] [address] [place] [address] Historical LMR Provider 03/12/17 documented as of this encounter Additional Source Comments The information contained in this document represents components of the legal health record. It is not the complete legal health record.[facility]
--- OUTSIDE RECORDS SUMMARY | 2025-04-08 17:12 | XMS_ITS | Encounter Summary ---
Author Organization [facility] Address [address] [facility] [address] [place] [address] Phone Care Team Providers Care Induction Machine Setter Name Role Phone Jazmine Fong SUPERINTENDENT POWER Unavailable [phone] Kimberley Holloway SUPERINTENDENT POWER Unavailable [phone] Paulino Huynh MD Unavailable [phone] Paulino Huynh MD Primary Care Provider Encounter Details Date Type Department Care Team (Late st Contact Info) Description 06/08/2017 EpicOnHand Encounter [facility] - Virtual Department [address] [place] [address] Guevara Mathew MD [address] [facility], [facility] [address] [place] [address] [email or web address] Social History Tobacco Use Types Packs/Day Years [...] on filedocumented in this encounter Care Teams Induction Machine Setter Relationship Specialty Start Date End Date Paulino Huynh MD [address] [place] [address] [place] [address] PCP - General 05/29/17 Jazmine Fong NP [address] [facility] [address] [place] [address] Historical LMR Provider 03/12/17 2 Kimberley Holloway NP [address] [place] [address] Historical LMR Provider 03/12/17 2 Paulino Huynh MD [address] [place] [address] [place] [address] Historical LMR Provider 03/12/17 documented as of this encounter Additional Source Comments The information contained in this document represents components of the legal health record. It is not the complete legal health record.[facility]
--- OUTSIDE RECORDS SUMMARY | 2025-04-08 17:12 | XMS_ITS | Encounter Summary ---
Author Organization [facility] Address [address] [place] [address] Phone Care Team Providers Care Vacuum Cooker Operator Name Role Phone Paulino Huynh MD Unavailable [phone] Paulino Huynh MD Primary Care Provider Encounter Details Date Type Department Care Team (Late st Contact Info) Description 06/20/2021 Transcribe Orders Virtual Department [address] [place] [address] Paulino Huynh MD [address] [place] [address] [place] [address] Breast screening (Primary Dx) Social History Tobacco [...] unspecified documented in this encounter Care Teams Vacuum Cooker Operator Relationship Specialty Start Date End Date Paulino Huynh MD [address] [place] [address] Dr [address]ANGEL [address] [place] [address] PCP - General 05/29/17 Paulino Huynh MD [address] [place] [address] [place] [address] Historical LMR Provider 03/12/17 documented as of this encounter Additional Source Comments The information contained in this document represents components of the legal health record. It is not the complete legal health record.[facility]
--- OUTSIDE RECORDS SUMMARY | 2025-04-08 17:12 | XMS_ITS | Encounter Summary ---
Author Organization [facility] Address [address] [place] [address] Phone Care Team Providers Care Stallion Keeper Name Role Phone Paulino Huynh MD Unavailable Paulino Huynh MD Primary Care Provider Encounter Details Date Type Department Care Team (Late st Contact Info) Description 08/05/2023 Procedure Pass [facility] - [address] [place] [address] Social History Tobacco Use Types Packs/Day Years [...] on filedocumented in this encounter Care Teams Stallion Keeper Relationship Specialty Start Date End Date Paulino Huynh MD [address] [place] [address] Dr [address] [place] [address] PCP - General 05/29/17 Paulino Huynh MD [address] [place] [address] [place] [address] Historical LMR Provider 03/12/17 documented as of this encounter Additional Source Comments The information contained in this document represents components of the legal health record. It is not the complete legal health record.[facility]
--- OUTSIDE RECORDS SUMMARY | 2025-04-08 17:12 | XMS_ITS | Encounter Summary ---
Author Organization [facility] Address [address] [place] [address] Phone Care Team Providers Care Plugging Machine Operator Name Role Phone Jazmine Fong ELASTIC ATTACHER OVERLOCK Unavailable [phone] Kimberley Holloway ELASTIC ATTACHER OVERLOCK Unavailable [phone] Paulino Huynh MD Unavailable [phone] Paulino Huynh MD Primary Care Provider Encounter Details Date Type Department Care Team (Late st Contact Info) Description 07/25/2017 Ancillary Orders Virtual Department 30 [place] [address] Paulino Huynh MD [address] [place] [address] [place] [address] Breast screening Social History Tobacco Use Types [...] unspecified documented in this encounter Care Teams Plugging Machine Operator Relationship Specialty Start Date End Date Paulino Huynh MD [address] [place] [address] Dr RANGEL [facility] [place] [address] PCP - General 05/29/17 Jazmine Fong NP [address] [place] [address] Historical LMR Provider 03/12/17 2 Kimberley Holloway NP [facility] [place] [address] Historical LMR Provider 03/12/17 2 Paulino Huynh MD [address] [place] [address] [facility] [place] [address] Historical LMR Provider 03/12/17 documented as of this encounter Additional Source Comments The information contained in this document represents components of the legal health record. It is not the complete legal health record.[facility]
--- OUTSIDE RECORDS SUMMARY | 2025-04-08 17:13 | XMS_ITS | Encounter Summary ---
Author Organization [facility] Address [address] [place] [address] Phone Care Team Providers Care Broker Associate Name Role Phone Jazmine Fong RESEARCHER Unavailable [phone] Kimberley Holloway RESEARCHER Unavailable [phone] Paulino Huynh MD Unavailable [phone] Paulino Huynh MD Primary Care Provider Encounter Details Date Type Department Care Team (Late st Contact Info) Description 03/02/2019 Transcribe Orders Virtual Department [address] [place] [address] Paulino Huynh MD [address] [place] [address] [place] [address] Osteopenia of right thigh (Primary Dx) Social [...] classification of normal, without significant interval change [id number]. Total bone mineral density in the right hip was calculated at 0.766 gm/kn7sdmk a T-score of -1.4 and Z-score of [...] thigh documented in this encounter Care Teams Broker Associate Relationship Specialty Start Date End Date Paulino Huynh MD [address] [place] [address] Dr [address] [place] [address] PCP - General 05/29/17 Jazmine Fong NP [address] [place] [address] Historical LMR Provider 03/12/17 2 Kimberley Holloway NP [address] [place] [address] Historical LMR Provider 03/12/17 2 Paulino Huynh MD [address] [place] [address] Dr [address] [place] [address] Historical LMR Provider 03/12/17 documented as of this encounter Additional Source Comments The information contained in this document represents components of the legal health record. It is not the complete legal health record.[facility]
--- OUTSIDE RECORDS SUMMARY | 2025-04-08 17:14 | XMS_ITS | Clinical Summary ---
Author Organization [facility] Address [address] [facility] [address] [place] [address] Phone Care Team Providers Care Distillery Supervisor Name Role Phone Paulino Huynh MD Unavailable [phone] Paulino Huynh MD Primary Care Provider Allergies [...] on patient's age to complete this topic IPV VACCINES Aged Out No longer eligi ble [...] classification of normal, without significant interval change [id number]. Total bone mineral density in the right hip was calculated at 0.766 gm/yw0skyu a T-score of -1.4 and Z-score of [...] 2017. POS - [id number] Paulino Huynh MD [facility] BD BONE DENSITY DEX A Final Result from Last 3 Months or Most Recently Relevant to Health Maintenance Insurance [facility] MEDICARE REPLACEMENT AENA [facility] MEDICARE REPLACEMENT AETNA O MEDICARE REPLACEMENT AETNA O MEDICARE REPLACEMENT AETNA O MEDICARE REPLACEMENT AETNA [facility] MEDICARE REPLACEMENT AETNA [facility] MEDICARE REPLACEMENT AETNA [facility] MEDICARE REPLACEMENT AETNA PPO MEDICARE REPLACEMENT Care Teams Distillery Supervisor Relationship Specialty Start Date End Date Paulino Huynh MD [address] [place] [address] [place] [address] PCP - General 05/29/17 Paulino Huynh MD [address] [place] [address] [place] [address] Historical LMR Provider 03/12/17 Additional Source Comments The information contained in this document represents components of the legal health record. It is not the complete legal health record.[facility]
--- OUTSIDE RECORDS SUMMARY | 2025-04-08 17:14 | XMS_ITS | Encounter Summary ---
Author Organization [facility] Address [address] [place] [address] Phone Care Team Providers Care Web Marketing Assistant Name Role Phone Paulino Huynh MD Unavailable [phone] Paulino Huynh MD Primary Care Provider Encounter Details Date Type Department Care Team (Late st Contact Info) Description 08/05/2023 Transcribe Orders Virtual Department 30 [place] [address] Paulino Huynh MD [address] [place] [address] [place] [address] Breast screening (Primary Dx) Social History Tobacco [...] unspecified documented in this encounter Care Teams Web Marketing Assistant Relationship Specialty Start Date End Date Paulino Huynh MD [address] [place] [address] [place] [address] PCP - General 05/29/17 Paulino Huynh MD [address] [place] [address] [place] [address] Historical LMR Provider 03/12/17 documented as of this encounter Additional Source Comments The information contained in this document represents components of the legal health record. It is not the complete legal health record.[facility]
--- OUTSIDE RECORDS SUMMARY | 2025-04-08 17:15 | XMS_ITS | Patient Health Record ---
Author Organization Paulino Huynh MD Address [address] [place], [place] [address] Care Team Providers Care Adventure Challenge Instructor Name Role Phone Paulino Huynh Primary Care Provider Allergies Allergen (clinical drug ingredient) Drug/Non Drug Allergy documented on EMR Reaction Allergy Type Onset Date Status nitrofurantoin Macrodantin rash Drug Allergy Active sulfamethoxazole / trimethoprim Bactrim DS rash Drug Allergy Active Results Component Value Reference Range Notes Liver Panel Reviewed date:05/06/2024 08:01:54 AM Interpretation:see back 05-04-2024 Performing Lab:[facility], [address] [place] [phone] Notes/Report: Bilirubin Total 0.6 0.0-1.0 mg/dL Bilirubin Direct 0.2 0.0-0.5 mg/dL Aspartate Amino Transferase 66 5-31 U/L Alanine Aminotransferase 75 0-31 U/L Total Protein 6.8 6.5-8.0 g/dL Albumin Level 4.1 3.5-5.0 g/dL Alkaline Phosphatase 100 39-117 U/L Complete Blood Count Auto Di ff Reviewed date:06/25/2024 12:28:42 PM Interpretation: Performing Lab:[facility], [address] [place] [phone] Notes/Report: White Blood Count 5.3 4.8-10.8 X10*3/uL [...] NRBC Abs Auto 0.000 0.0-0.012 X10*3/uL Comprehensive [place]. Panel Fa st Reviewed date:06/25/2024 12:28:25 PM Interpretation: Performing Lab:[facility], [address] [place] [phone] Notes/Report: Sodium 145 135-145 mmol/L Potassium 4.3 [...] Panel Reviewed date:06/25/2024 12:27:53 PM Interpretation: Performing Lab:[address] [phone] Notes/Report: Bilirubin Direct 0.2 0.0-0.5 mg/dL Lipid Panel Reviewed date:06/25/2024 12:27:40 PM Interpretation: Performing Lab:[address] [phone] Notes/Report: Triglycerides 160 <150 mg/dL Desirable Triglyceride: [...] A1c Reviewed date:06/25/2024 12:28:02 PM Interpretation: Performing Lab:[address] [phone] Notes/Report: Hemoglobin A1c % 5.3 <6.0 % [...] average glucose, using the formula of the G2D-Xuvozqm Average Glucose study (ADAG), Diabetes Care, Vol.31,#8, Dec. 2007 Liver Panel Reviewed date:12/30/2024 03:24:19 PM Interpretation: Performing Lab:[facility], [address] [place] [phone] Notes/Report: Bilirubin Total 0.9 0.0-1.0 mg/dL Bilirubin Direct 0.3 0.0-0.5 mg/dL Aspartate Amino Transferase 107 5-31 U/L Alanine Aminotransferase 98 0-31 U/L Total Protein 6.9 6.5-8.0 g/dL Albumin Level 4.3 3.5-5.0 g/dL Alkaline Phosphatase 107 39-117 U/L Lipid Panel with Reflex Reviewed date:12/30/2024 08:00:35 PM Interpretation: Performing Lab:[facility], [address] [place] [phone] Notes/Report: Triglycerides 130 <150 mg/dL Desirable Triglyceride: [...] in patients with liver disease. Liver Panel (Not yet reviewe d by provider) Interpretation: Performing Lab:[facility], [address] [place] [phone] Notes/Report: Bilirubin Total 1.4 0.0-1.0 mg/dL Bilirubin Direct 0.5 0.0-0.5 mg/dL Aspartate Amino Transferase 111 5-31 U/L Alanine Aminotransferase 97 0-31 U/L Total Protein 7.4 6.5-8.0 g/dL Albumin Level 4.5 3.5-5.0 g/dL Alkaline Phosphatase 120 39-117 U/L Glucose Fasting (Not yet rev iewed by provider) Interpretation: Performing Lab:[address] [address] Notes/Report: Glucose Fasting 113 60-99 mg/dL A fasting glucose from 100-125 mg/dl is considered impaired (pre-diabetes). Lipid Panel with Reflex (Not yet reviewed by provider) Interpretation: Performing Lab:[address] [address] Notes/Report: Triglycerides 134 <150 mg/dL Desirable Triglyceride: [...] A1c Reviewed date:04/08/2025 12:20:23 PM Interpretation: Performing Lab:[facility], [address] [place] [phone] Notes/Report: Hemoglobin A1c % 5.4 <6.0 % [...] average glucose, using the formula of the S2P-Jkelbxc Average Glucose study (ADAG), Diabetes Care, Vol.31,#8, 2007 Uric Acid Reviewed date:07/09/2024 04:58:19 PM Interpretation: Performing Lab:[facility], [address] [place] [phone] Notes/Report: Uric Acid 4.0 2.4-5.7 mg/dL Microalbumin, Random Reviewed date:07/09/2024 12:30:56 PM Interpretation: Performing Lab:[facility], [address] [place] [phone] Notes/Report: Creatinine Urine 67.27 Microalbumin Urine 6.0 Microalbum/Creatinine Ratio Ur 8.9 <30 ug/mg cr Albumin/Creatinine Ratio Reference Ranges: Normal: < 30 ug/mg creatinine Microalbuminuria: 30 - 300 ug/mg creatinine Clinical Albuminuria: > 300 ug/mg creatinine UA ClnCatch+Micro w/rflx Cul t Reviewed date:07/09/2024 12:31:12 PM Interpretation: Performing Lab:[facility], [address] [place] [phone] Notes/Report: Urine, Clean Catch Color Urine Yellow Appearance Urine Clear PH 6.0 5.0-9.0 Glucose Urine UA Negative Negative mg/dL Urine Blood Negative Negative Specific [place] - Urine 1.015 1.005-1.025 Urine Protein Negative Neg-Trace mg/dL Urine Ketones Negative Negative mg/dL Nitrite Urine Negative Negative Leukocyte Esterase Urine Negative Negative RBC Urine 0-2 0-2 /HPF WBC Urine 0-5 0-5 /HPF Squamous Epithelial Cell Urine 0-2 0-2 /HPF Bacteria Urine None Seen None Seen Hyaline Casts Urine 0-2 0-2 /LPF US abdomen comp w elastograp hy Reviewed date:06/10/2024 05:19:00 PM Interpretation: Performing Lab: Notes/Report: [address] [address] Ultrasound Report Signed Patient: Kiersten Winn MR#: [id number] 56 : 1950 Acct:[id number] Age/Sex: 73 / F ADM Date: 06/10/24 Loc: HO.US Attending Dr: Prem Pruitt MD Ordering Physician: Prem Pruitt MD Date of Service: 06/10/24 Procedure(s): US abdomen comp w elastography Accession Number(s): [id number] cc: Paulino Huynh MD; Prem Pruitt MD [...] MD 06/10/2024 09:25 AM [facility] [place] Dictated By: Steven Gonzalez MD Signed By: <Electronically signed by Steven Gonzalez MD in OV> 06/10/2425 DD/ TD/TT: 06/10/24 0858 Consumer Insights Intern: [place] [address] Ultrasound Report Signed Patient: Garima Winn MR#: [id number] 56 : 1950 Acct:[id number] Age/Sex: 73 / F ADM Date: 06/10/24 Loc: HO.US Attending Dr: Roldan Pruitt MD Ordering Physician: Prem Pruitt MD Date of Service: 06/10/24 Procedure(s): US abd omen comp w elastography Accession Number(s): [id number] cc: Paulino Huynh MD; Prem Pruitt MD EXAMINATION: US ABDO MEN COMPLETE WITH LIVER ELASTOGRAPHY HISTORY: ELEVATED LI JEROME FUNCTION TESTS TECHNIQUE: Real-time grayscale ultrasound imaging of the abdomen was performed and images were reviewed. COMPARISON: Comparis on is made with the prior examination dated 10/04/2021. FINDINGS: Liver: The liver is normal in size, but demonstrates increased echotexture, consist ent with steatosis. No focal mass or intrahepatic biliary ductal dilat ation is identified. There is normal hepatopedal flow [...] or pericholecystic fluid. There is no sonographic Mu rphy sign. The common bile duct is normal in caliber measuring 2 mm. Kidneys: The right k idney measures 11.3 cm in length. The left kidney measures 11.2 cm in length. There are bilateral renal cysts, including a 5 mm cyst in the interpolar region of the right kidney, a 2.7 x 1.3 x 2.7 cm cyst at the l ower pole of the right kidney, a 1.5 x 1.1 x 1.1 cm cyst in the interpol ar region of the left kidney and a 10 mm cyst in the interpolar regio n of the left kidney. The kidneys are otherwise unremarkable, withou t evidence of solid masses, hydronephrosis, or calculi. Pancreas: The pancre atic head, neck, and body are unremarkable. The pancreatic tail is obscured by bowel gas. Spleen: The spleen i s normal in size and contour, measuring 11.3 cm in length. Abdominal aorta and inferior vena cava: The visualized portions of the abdominal aorta and inferior vena cava are normal in caliber. There is no free flu id in the abdomen. U S/US abdomen comp w elastography IMPRESSION: Hepatic steatosis. [...] Radiologi sts in Ultrasound Liver Stiffness Thresholds (2019): LIVER [...] m/s (Liver Stiffness 9-13 kPa): Suggestive of compen sated advanced chronic liver disease but need further [...] amyloidosis and lymphoma. In some patients with N AFLD, the liver stiffness thresholds for compensated advanced chronic liver disease may be lower. In causes other than viral hep atitis and NAFLD, liver stiffness thresholds are not well established. Electronically jasmin d by: Steven Gonzalez MD 06/10/2024 09:25 AM EST Dictated By: Steven Gonzalez MD Signed By: <Norman alvarado signed by Steven Gonzalez MD in OV> 06/10/2425 DD/ TD/TT: 06/10/2458 Consumer Insights Intern: Kym Baig Reviewed date:12/30/2024 03:23:40 PM Interpretation: Performing Lab:[facility], [address] [place] [phone] Notes/Report: Kym Baig See Note Specimen held untested for 24 hours; Call to request Chemistry testing. Pathology Reviewed date:03/16/2025 05:42:20 PM Interpretation: Performing Lab:[facility], [address] [place] [phone] Notes/Report: ------ Name: Kiersten Winn Age/Sex: 74/F : 1950 Unit#: [id number] Attend Dr: Prem Pruitt MD Re03/15/25 Status : [facility] [place] Location: [facility] Disch: ------ SPEC : [id number] RECD : 03/15/25 STATUS: HAMIDA CARRANZA NUM: [id number] ELÍAS: 03/15/25-[address]: Prem Pruitt MD ENTERED: 03/15/25 SP TYPE: Surgical OTHR DR: Paulino Huynh MD ORDERED: HE Stain/3, Gross Micro L4 Diagnosis Colon, cecal polyps: Tubular adenomas (3 pieces); negative for high-grade dysplasia and carcinoma. Clinical History Pre-Op Dx: Screening Post-Op Dx: Colon polyps Microscopic Description Microscopic sections reviewed. Material Received Cecal polyps Gross Description Received in formalin labeled ?cecal polyps? are 3 fragments of dominguez-white soft tissue measuring 0.3-0.4 cm in greatest dimension which are wrapped in lens paper and entirely submitted for micros copic examination, 3 pieces in cassette A. ([facility]) IHC S/NG Disclaimer NOTE: Unless otherwi se stated, all tissue is formalin-fixed and paraffin-embedded. Some or all of the immunohistochemical tests reported herein may have been developed and their performance characteristics determined by [facility]. They have not been cleared or appr cesia by the U.S. Food and Drug Administration (FDA). However, the FDA has determined that such clearance or approval is not necessary. This laboratory is certified under the Clinical Laboratory Improvement Amendments of 1988 (CLIA) as qualified to perform high comp lexity clinical laboratory testing. Copies To: Paulino Huynh MD [facility] [address] [place], [place] [address] CONTINUED ON NEXT PAGE ------ Name: Kiersten Winn Age/Sex: 74/F : 1950 Unit#: [id number] Attend Dr: Prem Pruitt MD Re03/15/25 Status : [facility] Location: [facility] Disch: ------ SPEC : [id number] RECD : 03/15/25 STATUS: HAMIDA CARRANZA NUM: [id number] ELÍAS: 03/15/[address]: Prem Pruitt MD ENTERED: 03/15/25 SP TYPE: Surgical OTHR DR: Paulino Huynh MD ORDERED: HE Stain/3, Gross Micro L4 Copies To: (Continued) Prem Pruitt MD [address] [place] [address] ------ Signed (signature on file) Lillian Nguyen 03/16/25 1405 ------ END OF REPORT Kym Baig Reviewed date:04/08/2025 12:25:42 PM Interpretation: Performing Lab:[facility], [address] [place] [phone] Notes/Report: Kym Baig See Note Specimen held untested for 24 hours; Call to request Chemistry testing. Reason For Referral No Information Medications Medication [...] tablet Vaginal Two times a Week Active Omeprazole 20 MG TAKE 1 CAPSULE DAILY for 90 Active Timolol Maleate 0.5 % INSTILL 1 DROP IN BOTH EYES EVERY MORNING Ophthalmic for 90 Active Probiotic - 1 capsule Orally lety ry other day Not-Taking Immunizations Vaccine Route Administration Date Status Comme [...] pt was give n the vaccine at [facility] in [place].High dose was given. Prevnar 13 Unknown 03/19/2017 Administered [facility] Fluarix Quadrivalent Unknown 04/03/2018 Administered Ta rget in [place] Influenza High Dose Unknown 03/05/2019 Administered [facility] PPSV23 (Pnemovax) IM Intramuscular 05/10/2019 Administered Fluarix [...] 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) Active confirmed Problem 90977545 Anxiety (F41.9) Active confirmed Problem Hereditary hemochromatosis (81485354) Hereditary hemochromatosis (E83.110) Active confirmed Problem Hypercalcemia (25527184) Hypercalcemia (E83.52) Active confirmed Problem 736260350 Gastroesophageal reflux disease without esophagitis (K21.9) Active confirmed Problem 84346787 Essential hypert ension (I10) Active confirmed Problem 8711249 Prediabetes (R73.09) Active confirmed Problem 077882302 Abnormal LFTs (R79.89) Active confirm ed Problem Glaucoma (92599767) Glaucoma (H40.9) Active confirmed Problem 81877728 Tophaceous gout (M1A.9XX1) Active confirmed Problem 217784113 Pure hypercholesterolemia (E78.00) Active confirmed Problem 023147344 Hemochromatosis, unspecified hemochromatosis type (E83.119) Active confirmed Problem 356627835 Osteopenia of ri ght thigh (M85.851) Active confirmed Problem Acute arthritis (80429930) Acute arthritis (M19.90) Active confirmed Problem 389243970 Vaginal burning (N94.9) Active confirmed Problem 216669844 Gouty arthritis (M10.9) Active confirmed Problem 92649264 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 Problem 915772295644913 Drug-induced gou t of left foot, 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 Problem 30365908 Gout, tophaceous (M1A.9XX1) Active confirmed Vital Signs Blood pressure diastolic 60 mm Hg 01/06/2025 Height 64.25 in 01/06/2025 Blood pressure systolic 112 mm Hg 01/06/2025 Weight 138 lbs 01/06/2025 BMI 23.5 kg/m2 01/06/2025 Encounters Encounter Location Date Provider Diagnosis Paulino Huynh MD [address] [place] [id number] 04/27/2024 Paulino Huynh Pure hypercholestero lemia E78.00 ; Prediabetes R73.09 and Elevated LFTs R79.89 Paulino Huynh MD [address] [place] [id number] 06/25/2024 Paulino Huynh Blood tests for rout ine general physical examination Z00.00 ; Essential hypertension I10 ; Prediabetes R73.09 ; Pure hypercholesterolemia E78.00 and Abnormal LFTs R79.89 Paulino Huynh MD [address] [place] [id number] 12/30/2024 Paulino Huynh Pure hypercholestero lemia E78.00 Paulino Huynh MD [address] [place] [id number] 01/25/2025 Paulino Huynh Encounter for administration of vaccine Z23 Paulino Huynh MD [address] [place] [id number] 04/08/2025 Paulino Huynh Prediabetes R73.09 a nd Pure hypercholesterolemia E78.00 Paulino Huynh MD [address] [place] [id number] 05/04/2024 Paulino Huynh Pure hypercholestero lemia E78.00 ; Elevated LFTs R79.89 and Gouty arthritis M10.9 Paulino Huynh MD [address] [place] [id number] 07/09/2024 Paulino Huynh Prediabetes R73.09 ; Annual physical exam Z00.00 ; Essential hypertension I10 ; Gout, tophaceous M1A.9XX1 ; Gastroesophageal reflux disease without esophagitis K21.9 ; Pure hypercholesterolemia E78.00 and Depression screening Z13.31 Paulino Huynh MD [address] [place] [id number] 01/06/2025 Paulino Huynh Abnormal LFTs R79.89 and Gouty arthritis M10.9 Paulino Huynh MD [address] [place] [id number] 09/06/2024 Paulino Huynh Gout, tophaceous M1A .9XX1 and Essential hypertension I10 Paulino Huynh MD [address] [place] [id number] 09/14/2024 Paulino Huynh Gout, tophaceous M1A .9XX1 and Essential hypertension I10 Paulino Huynh MD [address] [place] [id number] 09/20/2024 Paulino Huynh Assessments Encounter Date Diagnosis (ICD Code) Assessment Notes Treatment Notes Treatment Clinical Notes Section Notes 04/27/2024 Pure hypercholesterolemia (ICD-10 - E78.00) 04/27/2024 Prediabetes (ICD-10 - R73.09) 06/25/[address] ine general physical examination (ICD-10 - Z00.00) 12/30/2024 Pure hypercholesterolemia (ICD-10 - E78.00) 01/25/2025 Encounter for administration of vaccine (ICD-10 - Z23) 04/08/2025 Prediabetes (ICD-10 - R73.09) 05/04/2024 Pure hypercholesterolemia (ICD-10 - E78.00) not [...] 06/25/2024 Essential hypertensi on (ICD-10 - I10) 04/08/2025 Pure hypercholesterolemia (ICD-10 - E78.00) 05/04/2024 Gouty arthritis (ICD -10 - M10.9) [...] Test Test Name Order Date Electrocardiogram (EKG) 05/07/2018 Electrocardiogram (EKG) 05/14/2019 Electrocardiogram (EKG) 04/12/2016 Liver Panel 04/08/2025 Glucose Fasting 04/08/2025 Lipid Panel with Reflex 04/08/2025 Next Appt Details Provider Name:Paulino dyer, 07/08/2025 07:15:00 AM, [address] [place] [address], [address], [place], [place], [id number], Provider Name:Paulinodarwin Gant ier, 07/15/2025 11:00:00 AM, [address], [address], [place], [place], [id number], Insurance Providers Payer Name Payer Address Payer Phone Subscriber Number Group Number Insured Name Patient Relationship to Insured Coverage Start Date Coverage End Date [employer] MED[employer]ARE ADVANTAGE [address] GABRIELA LINO [id number] [phone] [facility] [id number] Kiersten Alfred Self - patient is the insured MEDICARE [address] [place] [address] [id number] Kiersten Alfred Self - patient is the insured Medical (General) History Medical History History ICD Code 08/27/13, - Patient @ [facility] ([phone]) 08/27/13- MammoGeo- last done in 2011 Depression screening - 03/11/2014 [facility] appt 04/08; no pap done (last pap 08/27/10); PA said E5 years Colonoscopy was done in 04/26 009 - repeat 10 years; Colonoscopy done 11/03/[address] Pruitt = repeat depends on biopsy. colonoscopy 03/19 pending path Due iron and ferritin yearly (done 04/14 17)
--- OUTSIDE RECORDS SUMMARY | 2025-04-08 17:15 | XMS_ITS | Encounter Summary ---
Author Organization [facility] Address [address] [place] [address] Phone Care Team Providers Care Education Site Manager Name Role Phone Paulino Huynh MD Unavailable [phone] Paulino Huynh MD Primary Care Provider Encounter Details Date Type Department Care Team (Late st Contact Info) Description 03/11/2022 Procedure Pass [address] [place] [address] Social History Tobacco Use Types Packs/Day Years [...] on filedocumented in this encounter Care Teams Education Site Manager Relationship Specialty Start Date End Date Paulino Huynh MD [address] [place] [address] [place] [address] PCP - General 05/29/17 Paulino Huynh MD [address] [place] [address] [place] [address] Historical LMR Provider 03/12/17 documented as of this encounter Additional Source Comments The information contained in this document represents components of the legal health record. It is not the complete legal health record.[facility]
--- OUTSIDE RECORDS SUMMARY | 2025-04-08 17:17 | XMS_ITS | Encounter Summary ---
Author Organization [facility] Address [address] [place] [address] Phone Care Team Providers Care Outpatient Physical Therapist Name Role Phone Jazmine Fong [employer] Unavailable [phone] Kimberley Holloway [employer] Unavailable [phone] Paulino Huynh MD Unavailable [phone] Paulino Huynh MD Primary Care Provider Encounter Details Date Type Department Care Team (Late st Contact Info) Description 04/11/2020 Ancillary Orders Virtual Department [address] [place] [address] Paulino Huynh MD [address] [place] [address] [place] [address] Breast screening Social History Tobacco Use Types [...] unspecified documented in this encounter Care Teams Outpatient Physical Therapist Relationship Specialty Start Date End Date Paulino Huynh MD [address] [place] [address] Dr RANGEL [address] [place] [address] PCP - General 05/29/17 Jazmine Fong NP [address] [place] [phone] (Work) Historical LMR Provider 03/12/17 2 Kimberley Holloway NP [address] [facility] [place] [address] [place] [address] Historical LMR Provider 03/12/17 2 Paulino Huynh MD [address] [place] [address] [place] [address] Historical LMR Provider 03/12/17 documented as of this encounter Additional Source Comments The information contained in this document represents components of the legal health record. It is not the complete legal health record.[facility]
--- OUTSIDE RECORDS SUMMARY | 2025-04-08 17:18 | XMS_ITS | Encounter Summary ---
Author Organization [facility] Address [address] [facility] [address] [place] [address] Phone Care Team Providers Care Physical Therapy Aides Teacher Name Role Phone Jazmine Fong [employer] Unavailable [phone] Kimberley Holloway [employer] Unavailable [phone] Paulino Huynh MD Unavailable [phone] Paulino Huynh MD Primary Care Provider Encounter Details Date Type Department Care Team (Late st Contact Info) Description 04/11/2020 Procedure Pass [facility] - [address] [place] [address] Social History Tobacco Use Types Packs/Day Years [...] on filedocumented in this encounter Care Teams Physical Therapy Aides Teacher Relationship Specialty Start Date End Date Paulino Huynh MD [address] [place] [address] [place] [address] PCP - General 05/29/17 Jazmine Fong NP [address] [place] [id number] Historical LMR Provider 03/12/17 2 Kimberley Holloway NP [address] [place] [phone] Historical LMR Provider 03/12/17 2 Paulino Huynh MD [address] [place] [address] Dr RANGEL [address] [place] [address] Historical LMR Provider 03/12/17 documented as of this encounter Additional Source Comments The information contained in this document represents components of the legal health record. It is not the complete legal health record.[facility]
== END 2025-04-08 11:15 | disposition home or self-care (01) ==
LOC: HO.LNP 11:14
PROVIDERS: Visit Provider Internal Medicine
DX: R73.09 Other abnormal glucose (principal); E78.00 Pure hypercholesterolemia, unspecified
CPT/HCPCS: 80061; 80076; 82947; 83036